=== PATIENT | male | born 1970 | race Caucasian/White ===

== ENCOUNTER 2016-11-08 16:48 | Emergency (ER) | payer OTHER ==
[~2016-11-08] VITALS: Ht 177.8 cm; Wt 135.7 kg
[~2016-11-08 16:48] MED LIST: POLYSOL3 OPB
[2016-11-08 16:52] VITALS: TEMP 36.4; Ht 177.8 cm; Wt 135.7 kg
[2016-11-08] MEDS ORDERED: DiphenhydrAMINE HCL 50 MG/ML VIAL IV STA (16:59)
[2016-11-08] MEDS ORDERED: SODIUM CHLORIDE 0.9% 1000ML 1,000 ML IV STA ×2 (16:59)
[2016-11-08] MEDS ORDERED: METOCLOPRAMIDE HCL INJ 5 MG/ML 2 ML VIAL IV STA (16:59)
--- NOTE | 2016-11-08 17:14 | DIAGNOSTIC IMAGING REPORT ---
CHEST ONE VIEW PORTABLE CLINICAL HISTORY: Chest pain, dizziness, nausea and vomiting. COMPARISON STUDY: Chest radiograph August 30, 2009. FINDINGS: Lung volumes are normal. No pneumothorax or pleural effusion is present. Cardiomediastinal silhouette is stable. There is no evidence of pulmonary edema. There is no consolidation. IMPRESSION: No acute cardiopulmonary findings. Electronically signed by: Howie Ashton M.D. 11/08/2016 5:11 PM Dictated Date/Time: 11/08/2016 5:11 PM
[2016-11-08] MEDS ORDERED: GLC/500 PO (17:25)
[2016-11-08 18:17] LABS: BASO % 0.2 %; BASO ABS # 0.02 K/uL (0-0.2); COMPLETE YES; EOS % 0.3 %; HEMATOCRIT 42.2 % (42-52); IG% 0.3 %; LYMPH % 12.1 %; MEAN CELL VOLUME 82.6 fL (80-100); MEAN CORPUSCULAR HEMOGLOBIN 30.5 pg (25-34); MEAN PLATELET VOLUME 10.8 fL (7.4-10.4); MONO % 3.8 %; NEUT % 83.3 %; PLATELET COUNT 198 K/uL (130-400); RED BLOOD COUNT 5.11 M/uL (4.7-6.1)
--- NOTE | 2016-11-08 18:29 | DIAGNOSTIC IMAGING REPORT ---
CT OF THE HEAD WITHOUT CONTRAST CLINICAL HISTORY: Dizzy. COMPARISON STUDY: No previous studies for comparison. CT DOSE: 884.08 mGy.cm TECHNIQUE: Helical axial images of the head were obtained without IV contrast. Automated exposure control was utilized for the study. FINDINGS: No acute intracranial hemorrhage is present. Ventricular system is normal. Note is made of a CSF attenuation 2.1 x 1.6 cm extra-axial lesion overlying the medial anterior left frontal lobe suggestive of an arachnoid cyst. Basilar cisterns are patent. There are no findings to suggest acute dural sinus thrombosis or acute territorial infarct. There are no significant calvarial abnormalities. Mastoid air cells are clear. The left sphenoid sinus is largely opacified. IMPRESSION: 1. No acute intracranial findings. 2. 2.1 x 1.6 cm CSF attenuation abnormality overlying the anterior left frontal lobe suggestive of a small arachnoid cyst. 3. Largely opacified left sphenoid sinus. Electronically signed by: Howie Ashton M.D. 11/08/2016 6:27 PM Dictated Date/Time: 11/08/2016 6:23 PM
[2016-11-08 18:41] LABS: ALT/SGPT 39 U/L (12-78); AST/SGOT 17 U/L (15-37); BLOOD UREA NITROGEN 14 mg/dl (7-18); BUN/CREATININE RATIO 13.5 (10-20); CALCIUM 8.7 mg/dl (8.5-10.1); CARBON DIOXIDE 27 mmol/L (21-32); CHLORIDE 102 mmol/L (98-107); GLUCOSE 307 mg/dl (70-99); MAGNESIUM 2.1 mg/dl (1.8-2.4); SODIUM 137 mmol/L (136-145)
[2016-11-08 18:50] LABS: ALKALINE PHOSPHATASE 83 U/L (45-117)
[2016-11-08 18:57] VITALS: O2SAT 97
[2016-11-08 18:58] LABS: BETA-HYDROXYBUTYRATE 11.39 mg/dL (0.2-2.81)
--- NOTE | 2016-11-08 19:18 | EMERGENCY ROOM VISIT NOTE ---
History First contact with patient: 16:55 Chief Complaint: HYPERGLYCEMIA Stated Complaint: DIZZY, NAUSEA, VOMITING, BLOOD SUGAR UP Nursing Triage Summary: Triage ntoe; pt ambulatory to triage with unsteady gait. pt reports he has been dizzy for the past several days and started to have nausea and vomitting today. pt reports his bsg at 1600 was 248. History of Present Illness The patient is a 45 year old male who presents to the Emergency Room with complaints of nausea, vomiting, lightheadedness, dizziness and elevated blood sugars for the past 2 days. Patient states he feels as if he is lightheaded and the room is spinning. Patient denies chest pain, dyspnea, localized weakness, numbness, tingling, chest pain, dyspnea, abdominal pain, diarrhea, fever, chills, cough, congestion, cold symptoms. Review of Systems See HPI for pertinent positives & negatives. A total of 10 systems reviewed and were otherwise negative. Past Medical/Surgical History Diabetes type 2 Social History Smoking Status: Never Smoker Smokeless Tobacco Use: No Drug Use: none Current/Historical Medications Scheduled Metformin Hcl (Glucophage), 500 MG PO QPM Allergies Coded Allergies: No Known Allergies (Unverified , 11/08/16) Physical Exam Vital Signs Date Time Temp Pulse Resp B/P Pulse Ox O2 Delivery O2 Flow Rate FiO2 11/08/16 18:57 97 11/08/16 18:57 97 11/08/16 18:49 63 16 111/55 96 Room Air 11/08/16 16:52 36.4 58 18 181/127 98 Room Air Physical Exam VITALS: Vitals are noted on the nurse's note and reviewed by myself. Vital signs stable. GENERAL: Pleasant male, in no acute distress, nondiaphoretic, well-developed well-nourished. SKIN: The skin was without rashes, erythema, edema, or bruising. There is no tenting of the skin. Capillary reflex less than 2 seconds. HEAD: Normocephalic atraumatic. EARS: External auditory canals clear, tympanic membranes pearly miller without erythema or effusion bilaterally. EYES: Pupils equal round and reactive to light and accommodation. Conjunctivae without injection, sclerae without icterus. Extraocular movements intact. NOSE: Patent, turbinates without inflammation or discharge. No sinus tenderness. MOUTH: Mucous membranes mildly dry. Pharynx without erythema or exudate. Uvula midline. Airway patent. Tongue does not deviate. NECK: Supple without nuchal rigidity. No lymphadenopathy. No thyromegaly. Cervical spine is nontender. No JVD. HEART: Regular rate and rhythm without murmurs gallops or rubs. LUNGS: Clear to auscultation bilaterally without wheezes, rales or rhonchi. No dullness to percussion. No retractions or accessory muscle use. ABDOMEN: Positive bowel sounds x 4. Normal tympanic percussion. Soft, nontender, without masses or organomegaly. Braxton sign negative. No guarding or rebound tenderness. MUSCULOSKELETAL: No muscle atrophy, erythema, or edema noted. NEURO: Patient was alert and oriented to person place and time. Normal sensation to light and sharp touch. No focal neurological deficits. Medical Decision & Procedures Laboratory Results 11/08/16 17:58 Red Blood Count 5.11, Mean Corpuscular Volume 82.6, Mean Corpuscular Hemoglobin 30.5, Mean Corpuscular Hemoglobin Concent 37.0, Mean Platelet Volume 10.8, Neutrophils (%) (Auto) 83.3, Lymphocytes (%) (Auto) 12.1, Monocytes (%) (Auto) 3.8, Eosinophils (%) (Auto) 0.3, Basophils (%) (Auto) 0.2, Neutrophils # (Auto) 8.24, Lymphocytes # (Auto) 1.20, Monocytes # (Auto) 0.38, Eosinophils # (Auto) 0.03, Basophils # (Auto) 0.02 11/08/16 17:58 Test 11/08/16 17:58 White Blood Count 9.90 K/uL (4.8-10.8) Red Blood Count 5.11 M/uL (4.7-6.1) Hemoglobin 15.6 g/dL (14.0-18.0) Hematocrit 42.2 % (42-52) Mean Corpuscular Volume 82.6 fL (80-100) Mean Corpuscular Hemoglobin 30.5 pg (25-34) Mean Corpuscular Hemoglobin Concent 37.0 g/dl (32-36) Platelet Count 198 K/uL (130-400) Mean Platelet Volume 10.8 fL (7.4-10.4) Neutrophils (%) (Auto) 83.3 % Lymphocytes (%) (Auto) 12.1 % Monocytes (%) (Auto) 3.8 % Eosinophils (%) (Auto) 0.3 % Basophils (%) (Auto) 0.2 % Neutrophils # (Auto) 8.24 K/uL (1.4-6.5) Lymphocytes # (Auto) 1.20 K/uL (1.2-3.4) Monocytes # (Auto) 0.38 K/uL (0.11-0.59) Eosinophils # (Auto) 0.03 K/uL (0-0.5) Basophils # (Auto) 0.02 K/uL (0-0.2) RDW Standard Deviation 36.6 fL (36.4-46.3) RDW Coefficient of Variation 12.1 % (11.5-14.5) Immature Granulocyte % (Auto) 0.3 % Immature Granulocyte # (Auto) 0.03 K/uL (0.00-0.02) Anion Gap 8.0 mmol/L (3-11) Est Creatinine Clear Calc Drug Dose 130.8 ml/min Estimated GFR () 105.6 Estimated GFR (Non- 91.1 BUN/Creatinine Ratio 13.5 (10-20) Calcium Level 8.7 mg/dl (8.5-10.1) Magnesium Level 2.1 mg/dl (1.8-2.4) Total Bilirubin 0.9 mg/dl (0.2-1) Direct Bilirubin 0.2 mg/dl (0-0.2) Aspartate Amino Transf (AST/SGOT) 17 U/L (15-37) Alanine Aminotransferase (ALT/SGPT) 39 U/L (12-78) Alkaline Phosphatase 83 U/L (45-117) Troponin I < 0.015 ng/ml (0-0.045) Total Protein 7.4 gm/dl (6.4-8.2) Albumin 3.6 gm/dl (3.4-5.0) Beta-Hydroxybutyric Acid 11.39 mg/dL (0.2-2.81) Thyroid Stimulating Hormone (TSH) 1.160 uIu/ml (0.300-4.500) Medications Administered Medications (Trade) Dose Ordered Sig/Ena Route Start Time Stop Time Status Last Admin Dose Admin Metoclopramide HCl (Reglan Inj) 10 mg NOW STAT IV 11/08/16 16:59 11/08/16 17:02 DC 11/08/16 17:42 10 MG Diphenhydramine HCl 25 mg 25 mg NOW STAT IV 11/08/16 16:59 11/08/16 17:02 DC 11/08/16 17:43 25 MG Sodium Chloride 1,000 ml @ 999 mls/hr Q1H1M STAT IV 11/08/16 16:59 11/08/16 17:59 DC 11/08/16 16:59 999 MLS/HR Sodium Chloride (Nss 1000ml) 1,000 ml @ 125 mls/hr Q8H STAT IV 11/08/16 16:59 11/09/16 00:58 11/08/16 16:59 125 MLS/HR ED Course Prior records/ancillary studies reviewed. Triage Nursing notes reviewed. The patient's history was concerning for dizziness and vertigo. Differential diagnosis: Etiologies such as benign positional vertigo, dehydration, hypovolemia, anemia, tumor, infection, hypoglycemia, electrolyte abnormalities, cardiac sources, intracerebral event, toxicologic, neurologic, as well as others were entertained. Physical examination: As above. No pathologic nystagmus. ER treatment provided: IV hydration with normal saline, 1000 ml. Reglan, Benadryl On reassessment the patient felt well. Diagnostics interpretation by me: ECG: Normal sinus rhythm without ischemic change or evidence of dysrhythmia. Normal sinus, normal intervals, no acute ST-T wave changes. Impression normal sinus rhythm interpreted by myself The labs revealed a normal CBC and chemistry panel. Hyperglycemia without DKA CT OF THE HEAD WITHOUT CONTRAST CLINICAL HISTORY: Dizzy. COMPARISON STUDY: No previous studies for comparison. CT DOSE: 884.08 mGy.cm TECHNIQUE: Helical axial images of the head were obtained without IV contrast. Automated exposure control was utilized for the study. FINDINGS: No acute intracranial hemorrhage is present. Ventricular system is normal. Note is made of a CSF attenuation 2.1 x 1.6 cm extra-axial lesion overlying the medial anterior left frontal lobe suggestive of an arachnoid cyst. Basilar cisterns are patent. There are no findings to suggest acute dural sinus thrombosis or acute territorial infarct. There are no significant calvarial abnormalities. Mastoid air cells are clear. The left sphenoid sinus is largely opacified. IMPRESSION: 1. No acute intracranial findings. 2. 2.1 x 1.6 cm CSF attenuation abnormality overlying the anterior left frontal lobe suggestive of a small arachnoid cyst. 3. Largely opacified left sphenoid sinus. Electronically signed by: Howie Ashton M.D. It appears the patient had an episode of vertigo. Patient did have hyperglycemia without DKA. He felt much better to being medicated as above. He is able tolerate by mouth fluids and ambulate without difficulties. He was advised to monitor his blood sugars, rest, stay well-hydrated and follow-up family care in a few days or here in the ER sooner for chest pain, difficulty breathing, numbness, tingling, worsening signs or symptoms or as needed. Patient was neurovascularly and neurologically intact. By the evaluation outlined above emergent etiologies such as infection, hypoglycemia, electrolyte abnormalities, cardiac sources, intracerebral event, toxicologic, neurologic,as well as others were deemed relatively unlikely. The pt informed about the findings as listed above. All questions were answered and pleased with the treatment. Return instructions were outlined and the patient was discharged in stable condition. Outpatient prescription management: Zofran Referral: The patient was referred back to their primary care physician for follow-up in 2 to 3 days for a recheck of the current condition. Case reviewed with my attending Medical Decision As above Impression Primary Impression: Vertigo Additional Impressions: Hyperglycemia due to type 2 diabetes mellitus Vomiting Departure Information Dispostion Home / Self-Care Condition GOOD Referrals German Nayak M.D. (MEDICAL) (PCP) Patient Instructions My [facility] Additional Instructions DO NOT drive, drink alcohol, operate machinery, or perform dangerous activities today. You were given medications in the ER that can affect your ability to safely function or operate a vehicle. Monitor your blood sugars. They were high today. Zofran(odansetron) tablets 4mg: Take one and allow it to dissolve in your mouth every four to six hours as needed for nausea or vomiting. Ibuprofen(Motrin, Advil) may be used for fever or pain. Use 600mg every six hours as needed. Take with food. Avoid using more than 2400mg in a 24 hour period. Do not use 2400mg per day for more than three consecutive days without physician direction. Prolonged inappropriate use can lead to stomach upset or ulcers. (AND/OR) Acetaminophen(Tylenol) may be used for fever or pain. Use 1000mg every six hours as needed. Avoid using more than 3000mg in a 24 hour period. Rest and drink plenty of fluids as tolerated. Slow sips of water or sports drinks are recommended instead of large amounts all at once. Continue current medications. Once your stomach is settled start with a clear liquid diet (jello, soup broth, etc.) and then advance as tolerated. You should avoid full, heavy meals for about 24 hrs from the time your symptoms resolved. Return to the ER for persistent vomiting, fevers, abdominal pain, chest pains, difficulty breathing, black or bloody stools, worsening of your condition, or as needed. Follow up with your primary physician in 2-3 days for a recheck of your current condition. Problem Qualifiers
[2016-11-08] MEDS ORDERED: ONDANSETRON HOME PACK 4MG OD TAB PO ONE (19:30)
[2016-11-08 19:41] VITALS: BP 157/94; PULSE 62; O2SAT 97
[2017-06-14] MEDS ORDERED: METFTAB PO (16:03)
[2017-06-14] MEDS ORDERED: LINE1TAB2 PO (16:03)
[2017-06-14] MEDS ORDERED: INSDGIPEN SC (16:03)
[2017-06-14] MEDS ORDERED: INSU32MI13 SQ (16:03)
[2017-06-14] MEDS ORDERED: ULT50X PO (16:03)
[2017-06-14] MEDS ORDERED: NVLGIPEN SQ (20:48)
[2017-07-01] MEDS ORDERED: LEVO1TAB34 PO (13:13)
== END 2016-11-08 19:42 | disposition home or self-care (01) ==
LOC: C.EDB 16:49
DX: R42 Dizziness and giddiness (principal); E11.65 Type 2 diabetes mellitus with hyperglycemia; R11.10 Vomiting, unspecified; Z79.4 Long term (current) use of insulin

== ENCOUNTER 2017-06-04 16:11 | Inpatient (IN) | payer OTHER ==
[~2017-06-04] VITALS: Ht 177.8 cm; Wt 137.5 kg
[~2017-06-04 16:11] MED LIST changes: +GLC/500 PO; -POLYSOL3 OPB
[2017-06-04] MEDS ORDERED: PIPERACILLIN/TAZOBACTAM 4.5 GM/100ML D5W IV STA (17:18)
[2017-06-04] MEDS ORDERED: DAPTOMYCIN IV STA (17:18)
[2017-06-04] MEDS ORDERED: SODIUM CHLORIDE 0.9% IV STA (17:18)
[2017-06-04] MEDS ORDERED: DAPTOMYCIN IV SCH (17:18)
[2017-06-04] MEDS ORDERED: HYDROmorphone INJ 1 MG/ML SYR IV STA (17:27)
[2017-06-04] MEDS ORDERED: ONDANSETRON INJ 2 MG/ML 2 ML VIAL IV STA (17:27)
[2017-06-04] MEDS ORDERED: OPTIRAY 320 IV PRN (17:30)
[2017-06-04 18:06] LABS: ISTAT CREATININE 0.9 mg/dl (0.6-1.3); ISTAT HEMOGLOBIN 14.3 g/dl (14.0-18.0); ISTAT IONIZED CALCIUM 1.12 mmol/l (1.12-1.32)
[2017-06-04 18:39] LABS: ALKALINE PHOSPHATASE 93 U/L (45-117); ALT/SGPT 22 U/L (12-78); AST/SGOT 12 U/L (15-37); BLOOD UREA NITROGEN 14 mg/dl (7-18); BUN/CREATININE RATIO 12.7 (10-20); CALCIUM 9.4 mg/dl (8.5-10.1); CARBON DIOXIDE 26 mmol/L (21-32); CHLORIDE 101 mmol/L (98-107); CREATININE 1.08 mg/dl (0.60-1.40); GLUCOSE 291 mg/dl (70-99); SODIUM 135 mmol/L (136-145)
[2017-06-04 18:50] LABS: URINE APPEARANCE CLEAR (CLEAR); URINE BILIRUBIN NEG (NEG); URINE COLOR YELLOW; URINE NITRITE NEG (NEG); URINE SPECIFIC GRAVITY > 1.045 (1.000-1.030); UROBILINOGEN NEG (NEG)
[2017-06-04 18:57] LABS: MANUAL MICROSCOPIC REQUIRED? NO; REVIEW REQ? NO
--- NOTE | 2017-06-04 18:59 | DIAGNOSTIC IMAGING REPORT ---
ABDOMEN AND PELVIS CT WITH IV CONTRAST CT DOSE: 2046.80 mGy.cm HISTORY: Scrotal swelling. Pt fourneiers gangrene TECHNIQUE: Multiaxial CT images of the abdomen and pelvis were performed following the use of intravenous contrast. A dose lowering technique was utilized adhering to the principles of ALARA. COMPARISON STUDY: None. FINDINGS: There is scrotal edema and subcutaneous fat stranding along the right side of the scrotum/medial inguinal region. No loculated fluid collections at this time to suggest an abscess. There is no soft tissue gas. Hepatic steatosis. The gallbladder, spleen, adrenal glands, pancreas, and kidneys are unremarkable. No retroperitoneal lymphadenopathy. No hydronephrosis. Normal bladder. No bowel wall thickening or obstruction. A few colonic diverticula. Normal appendix. IMPRESSION: There is scrotal edema and subcutaneous fat stranding along the right side of the scrotum/medial inguinal region. No loculated fluid collections at this time to suggest an abscess. There is no soft tissue gas. Therefore, this favors a cellulitis. However, a developing Irlanda's gangrene could also have a similar appearance given the location. Electronically signed by: Leandro Corona M.D. 06/04/2017 6:58 PM Dictated Date/Time: 06/04/2017 6:48 PM
[2017-06-04 19:04] LABS: BASO % 0.1 %; BASO ABS # 0.02 K/uL (0-0.2); COMPLETE YES; EOS % 0.3 %; IG% 0.2 %; LYMPH % 8.2 %; LYMPH ABS # 1.12 K/uL (1.2-3.4); MEAN CELL VOLUME 85.4 fL (80-100); MEAN CORPUSCULAR HGB CONC 36.3 g/dl (32-36); MEAN PLATELET VOLUME 11.8 fL (7.4-10.4); MONO % 8.7 %; NEUT % 82.5 %; PLATELET COUNT 237 K/uL (130-400); WHITE BLOOD COUNT 13.62 K/uL (4.8-10.8)
--- NOTE | 2017-06-04 19:11 | EMERGENCY ROOM VISIT NOTE ---
History Report prepared by Michelle: Hermila Berg Under the Supervision of: Dr. Fredi Sanders M.D. First contact with patient: 17:12 Chief Complaint: GROIN PAIN Stated Complaint: IRLANDA GANGRENE- [facility] REFERRED History of Present Illness The patient is a 46 year old male who presents to the Emergency Room with complaints of worsening groin pain starting last night. The patient states that 4 days ago he noticed a small red bump on the right side of his groin. He reports that he thought it was an ingrown hair and tried to pop it. He states that since then it has worsened. He reports that the swelling and redness has increased and started spreading. The patient currently rates his pain as an 8/ 10 in severity. He states that he has been taking Ibuprofen and Tylenol with the last being 2 hours ago. The patient notes that he came to the ED because [employer] sent him here. He denies his scrotum being tender and denies any drainage from the region. Source of History: patient Onset: last night Position: other (groin) Symptom Intensity: 8/10 Quality: other (swollen) Timing: worsening Modifying Factors (Relieving): tylenol, ibuprofen Note: The patient denies his scrotum being tender and any drainage from the region. Review of Systems See HPI for pertinent positives & negatives. A total of 10 systems reviewed and were otherwise negative. Past Medical & Surgical Medical Problems: (1) Diabetes Family History No pertinent family history Social History Smoking Status: Never Smoker Drug Use: none Marital Status: single Housing Status: lives alone Current/Historical Medications Scheduled Metformin Hcl (Glucophage), 1 TAB PO BID Sildenafil Citrate (Viagra), 100 MG PO UD Allergies Coded Allergies: No Known Allergies (Unverified , 06/04/17) Physical Exam Vital Signs Date Time Temp Pulse Resp B/P (MAP) Pulse Ox O2 Delivery O2 Flow Rate FiO2 06/04/17 19:19 80 06/04/17 18:08 88 18 153/90 97 Room Air 06/04/17 16:27 37.5 90 20 157/112 96 Room Air Physical Exam GENERAL: Patient is a healthy-appearing well-nourished HEAD: Normocephalic atraumatic EYES: Ocular movements intact pupils equal and react to light OROPHARYNX mucous membranes are moist no exudates present no erythema or edema present NECK: Supple no nuchal rigidity CHEST: Good equal expansion LUNGS: Clear and equal to auscultation CARDIAC: Normal S1 and S2 ABDOMEN: Soft nontender no guarding GROIN: Induration from the right inguinal region into the scrotum. The scrotum itself is red and inflamed. Open wound to the left inguinal region. BACK: No CVA tenderness EXTREMITIES: No pain upon palpation normal muscle strength in all groups no clubbing cyanosis or edema NEURO: Patient is following commands and answering questions appropriately. Alert and oriented x3 Cranial Nerves 2-12 grossly intact Medical Decision & Procedures ER Provider Diagnostic Interpretation: Radiology results as stated below per my review and radiologist interpretation: ABDOMEN AND PELVIS CT WITH IV CONTRAST CT DOSE: 2046.80 mGy.cm HISTORY: Scrotal swelling. Pt fourneiers gangrene TECHNIQUE: Multiaxial CT images of the abdomen and pelvis were performed following the use of intravenous contrast. A dose lowering technique was utilized adhering to the principles of ALARA. COMPARISON STUDY: None. FINDINGS: There is scrotal edema and subcutaneous fat stranding along the right side of the scrotum/medial inguinal region. No loculated fluid collections at this time to suggest an abscess. There is no soft tissue gas. Hepatic steatosis. The gallbladder, spleen, adrenal glands, pancreas, and kidneys are unremarkable. No retroperitoneal lymphadenopathy. No hydronephrosis. Normal bladder. No bowel wall thickening or obstruction. A few colonic diverticula. Normal appendix. IMPRESSION: There is scrotal edema and subcutaneous fat stranding along the right side of the scrotum/medial inguinal region. No loculated fluid collections at this time to suggest an abscess. There is no soft tissue gas. Therefore, this favors a cellulitis. However, a developing Irlanda's gangrene could also have a similar appearance given the location. Electronically signed by: Leandro Corona M.D. 06/04/2017 6:58 PM Dictated Date/Time: 06/04/2017 6:48 PM Laboratory Results 06/04/17 17:40 Red Blood Count 4.80, Mean Corpuscular Volume 85.4, Mean Corpuscular Hemoglobin 31.0, Mean Corpuscular Hemoglobin Concent 36.3, Mean Platelet Volume 11.8, Neutrophils (%) (Auto) 82.5, Lymphocytes (%) (Auto) 8.2, Monocytes (%) (Auto) 8.7, Eosinophils (%) (Auto) 0.3, Basophils (%) (Auto) 0.1, Neutrophils # (Auto) 11.22, Lymphocytes # (Auto) 1.12, Monocytes # (Auto) 1.19, Eosinophils # (Auto) 0.04, Basophils # (Auto) 0.02 06/04/17 17:40 Test 06/04/17 17:40 06/04/17 17:53 06/04/17 18:20 White Blood Count 13.62 K/uL (4.8-10.8) Red Blood Count 4.80 M/uL (4.7-6.1) Hemoglobin 14.9 g/dL (14.0-18.0) Hematocrit 41.0 % (42-52) Mean Corpuscular Volume 85.4 fL (80-100) Mean Corpuscular Hemoglobin 31.0 pg (25-34) Mean Corpuscular Hemoglobin Concent 36.3 g/dl (32-36) Platelet Count 237 K/uL (130-400) Mean Platelet Volume 11.8 fL (7.4-10.4) Neutrophils (%) (Auto) 82.5 % Lymphocytes (%) (Auto) 8.2 % Monocytes (%) (Auto) 8.7 % Eosinophils (%) (Auto) 0.3 % Basophils (%) (Auto) 0.1 % Neutrophils # (Auto) 11.22 K/uL (1.4-6.5) Lymphocytes # (Auto) 1.12 K/uL (1.2-3.4) Monocytes # (Auto) 1.19 K/uL (0.11-0.59) Eosinophils # (Auto) 0.04 K/uL (0-0.5) Basophils # (Auto) 0.02 K/uL (0-0.2) RDW Standard Deviation 38.2 fL (36.4-46.3) RDW Coefficient of Variation 12.2 % (11.5-14.5) Immature Granulocyte % (Auto) 0.2 % Immature Granulocyte # (Auto) 0.03 K/uL (0.00-0.02) Est Creatinine Clear Calc Drug Dose 120.7 ml/min Estimated GFR () 95.6 Estimated GFR (Non- 82.5 BUN/Creatinine Ratio 12.7 (10-20) Calcium Level 9.4 mg/dl (8.5-10.1) Total Bilirubin 0.8 mg/dl (0.2-1) Direct Bilirubin mg/dl (0-0.2) Aspartate Amino Transf (AST/SGOT) 12 U/L (15-37) Alanine Aminotransferase (ALT/SGPT) 22 U/L (12-78) Alkaline Phosphatase 93 U/L (45-117) Total Protein 7.7 gm/dl (6.4-8.2) Albumin 3.2 gm/dl (3.4-5.0) Lipase 115 U/L (73-393) Bedside Hemoglobin 14.3 g/dl (14.0-18.0) Bedside Hematocrit 42 % (42-52) Bedside Sodium 136 mEq/L (135-144) Bedside Potassium 4.2 mEq/L (3.3-5.0) Bedside Chloride 98 mEq/L (101-112) Bedside Total CO2 27 mEq/l (24-31) Anion Gap 16.0 mmol/L (16-25) Bedside Blood Urea Nitrogen 16 mg/dl (7-18) Bedside Creatinine 0.9 mg/dl (0.6-1.3) Bedside Glucose (other) 287 mg/dl (70-99) Bedside Ionized Calcium (Flaco) 1.12 mmol/l (1.12-1.32) Urine Color YELLOW Urine Appearance CLEAR (CLEAR) Urine pH 5.0 (4.5-7.5) Urine Specific [place] > 1.045 (1.000-1.030) Urine Protein 1+ (NEG) Urine Glucose (UA) 3+ (NEG) Urine Ketones 1+ (NEG) Urine Occult Blood NEG (NEG) Urine Nitrite NEG (NEG) Urine Bilirubin NEG (NEG) Urine Urobilinogen NEG (NEG) Urine Leukocyte Esterase NEG (NEG) Urine WBC (Auto) 1-5 /hpf (0-5) Urine RBC (Auto) 0-4 /hpf (0-4) Urine Hyaline Casts (Auto) 1-5 /lpf (0-5) Urine Epithelial Cells (Auto) 5-10 /lpf (0-5) Urine Bacteria (Auto) NEG (NEG) Labs reviewed by ED physician. Medications Administered Medications (Trade) Dose Ordered Sig/Ena Route Start Time Stop Time Status Last Admin Dose Admin Piperacillin Sod/ Tazobactam Sod (Zosyn Iv) 4.5 gm NOW STAT IV 06/04/17 17:18 06/04/17 17:21 DC 06/04/17 18:11 4.5 GM Hydromorphone HCl (Dilaudid Inj) 1 mg NOW STAT IV 06/04/17 17:27 06/04/17 17:28 DC 06/04/17 18:11 1 MG Ondansetron HCl (Zofran Inj) 4 mg NOW STAT IV 06/04/17 17:27 06/04/17 17:28 DC 06/04/17 18:11 4 MG Daptomycin 825 mg/ Syringe 16.5 ml @ 8.25 mls/ min 1718 IV 06/04/17 17:18 06/04/17 19:00 DC 06/04/17 18:25 8.25 MLS/MIN ED Course 171: Ordered Daptomycin 825 mg/ Syringe 16.5 ml @ 8.25 mls/min Protocol IV, Zosyn Iv 4.5 gm IV. 1721: Past medical records reviewed. The patient was evaluated in room C4. A complete history and physical examination was performed. 1726: Ordered Zofran Inj 4 mg IV, Dilaudid Inj 1 mg IV. 1919: I discussed the patient's case with Dr. Hernandez, he has agreed to evaluate the patient for further management and care. Medical Decision Etiologies such as cellulitis, abscess, MRSA infection, DVT, necrotizing fasciitis, dermatitis, drug eruption, as well as others were entertained. This is a 46-year-old male who presents emergency department complaining of redness to his groin area that started after he popped a blister. A wound culture was obtained and the patient was started on Zosyn as well as daptomycin. Due to the patient's status is a diabetic he was sent for a CAT scan of the abdomen and pelvis. This did not show any evidence of 14 years gangrene however the patient does have cellulitis. He was pancultured. I did discuss the case with the hospitalist service who agreed to admit the patient. Patient family were in agreement with the treatment plan. Medication Reconcilliation Current Medication List: was personally reviewed by me Blood Pressure Screening Patient's blood pressure: Elevated blood pressure Will be further monitored by hospitalist. Consults Time Called: 1904 Consulting Physician: Dr. Hernandez Returned Call: 1919 I discussed the patient's case with Dr. Hernandez, he has agreed to evaluate the patient for further management and care. Impression Primary Impression: Cellulitis Scribe Attestation The scribe's documentation has been prepared under my direction and personally reviewed by me in its entirety. I confirm that the note above accurately reflects all work, treatment, procedures, and medical decision making performed by me. Departure Information Dispostion Being Evaluated By Hospitalist Referrals German Nayak M.D. (MEDICAL) (PCP) Patient Instructions My [facility] Problem Qualifiers Primary Impression: Cellulitis Site of cellulitis: other site Qualified Codes: L03.818 - Cellulitis of other sites
[2017-06-04] MEDS ORDERED: GLUCOSE 40% GEL 15 GM TUBE PO PRN (20:00)
[2017-06-04] MEDS ORDERED: MoRPHine SULFATE 2 MG/ML CARP IV PRN (20:00)
[2017-06-04] MEDS ORDERED: DEXTROSE 50% 50 ML SYR IV PRN (20:00)
[2017-06-04] MEDS ORDERED: GLUCOSE 10 TABS/TUBE PO PRN (20:00)
[2017-06-04] MEDS ORDERED: GLUCAGON FOR INJ 1 MG VIAL SQ PRN (20:00)
[2017-06-04] MEDS ORDERED: SILD100T PO (20:08)
[2017-06-04] MEDS ORDERED: METF500T PO (20:09)
[2017-06-04 21:00] VITALS: BP 139/81; PULSE 82; TEMP 37.2; O2SAT 97; BMI 43.5
--- NOTE | 2017-06-04 21:20 | History and Physical ---
History & Physical Date & Time of Service: Jun 04, 2017 at 20:18 Chief Complaint: Irlanda Gangrene- [facility] Referred Primary Care Physician: German Nayak M.D. (MEDICAL) History of Present Illness Source: patient, spouse, clinic records, hospital records 46 yo with PMH of DM Type 2, obesity was sent from [facility] for cellulitis in the scrotum presents to the Emergency Room with complaints of worsening right groin/ scrotum pain starting last night. Pt said that it started as a small red lump in his right inguinal area. He said that he tried to pop it because he thought he was an ingrown hair. He said 24 hrs later, he said that things got worst. He said that the area was tender, erythematous and swelling, then spreading in the scrotum area. He said that the pain in the right inguinal area is about 7/10. He said that his scrotum area is mildly tender associated with redness. He said that he developed a fever and chills. He said that he had been taking ibuprofen and Tylenol with no relief. He said that he noticed his urine has an odor. Denies any discharge, urinary retention or bladder loss, no nausea, diarrhea. Pt is DM and his last hba1c was 11.5 on . He said that he has not been taking his metformin in the past few months due to GI side effect (diarrhea). Past Medical/Surgical History DM Type 2 OBESITY Tourette syndrome Erectile Dysfunction OCD Family History No pertinent family history Social History Smoking Status: Never Smoker Drug Use: none Marital Status: single Multi-Drug Resistant Organisms History of MDRO: No Allergies Coded Allergies: No Known Allergies (Unverified , 06/04/17) Home Medications Scheduled Metformin Hcl (Glucophage), 1 TAB PO BID Sildenafil Citrate (Viagra), 100 MG PO UD Review of Systems Constitutional: + fever, + chills, + sweats Eyes: No worsening of vision, No discharge ENT: No nasal symptoms, No sore throat Respiratory: No sputum, No wheezing, No shortness of breath, No dyspnea on exertion Cardiovascular: No chest pain, No claudication Abdomen: No pain, No nausea, No vomiting Musculoskeletal: No swelling, No calf pain Genitourinary - Male: + problem reported (erythema and tenderness in the scrotal area), No hematuria, No dysuria, No urinary retention, No penile discharge Neurologic: No memory loss, No weakness Psychiatric: No substance abuse Endocrine: No excessive thirst, No excessive urination Hematologic / Lymphatic: No clotting problems Integumentary: No rash, No itch Physical Exam Vital Signs Date Time Temp Pulse Resp B/P (MAP) Pulse Ox O2 Delivery O2 Flow Rate FiO2 06/04/17 19:19 80 06/04/17 18:08 88 18 153/90 97 Room Air 06/04/17 16:27 37.5 90 20 157/112 96 Room Air General Appearance: WD/WN, no apparent distress Head: normocephalic, atraumatic Eyes: PERRL, EOMI, sclerae normal ENT: hearing grossly normal Neck: no adenopathy, no JVD, trachea midline Respiratory/Chest: lungs clear, normal breath sounds, no respiratory distress, no accessory muscle use Cardiovascular: no edema, no JVD, no murmur Abdomen/GI: normal bowel sounds, non tender Genitourinary - Male: no urethral discharge, + pertinent finding (scrotum erythema, swelling with right side tenderness, right scrotal area induration, Open lesion to the left side of the scrotal area, no drainage) Back: no CVA tenderness Extremities/Musculoskelatal: no calf tenderness, no pedal edema Neurologic/Psych: no motor/sensory deficits, alert, oriented x 3 Skin: warm/dry, no rash Diagnostics Laboratory Results Results Past 24 Hours Test 06/04/17 17:40 06/04/17 17:53 06/04/17 18:20 Range/Units White Blood Count 13.62 4.8-10.8 K/uL Red Blood Count 4.80 4.7-6.1 M/uL Hemoglobin 14.9 14.0-18.0 g/dL Hematocrit 41.0 42-52 % Mean Corpuscular Volume 85.4 80-100 fL Mean Corpuscular Hemoglobin 31.0 25-34 pg Mean Corpuscular Hemoglobin Concent 36.3 32-36 g/dl Platelet Count 237 130-400 K/uL Mean Platelet Volume 11.8 7.4-10.4 fL Neutrophils (%) (Auto) 82.5 % Lymphocytes (%) (Auto) 8.2 % Monocytes (%) (Auto) 8.7 % Eosinophils (%) (Auto) 0.3 % Basophils (%) (Auto) 0.1 % Neutrophils # (Auto) 11.22 1.4-6.5 K/uL Lymphocytes # (Auto) 1.12 1.2-3.4 K/uL Monocytes # (Auto) 1.19 0.11-0.59 K/uL Eosinophils # (Auto) 0.04 0-0.5 K/uL Basophils # (Auto) 0.02 0-0.2 K/uL RDW Standard Deviation 38.2 36.4-46.3 fL RDW Coefficient of Variation 12.2 11.5-14.5 % Immature Granulocyte % (Auto) 0.2 % Immature Granulocyte # (Auto) 0.03 0.00-0.02 K/uL Sodium Level 135 136-145 mmol/L Potassium Level 4.0 3.5-5.1 mmol/L Chloride Level 101 98-107 mmol/L Carbon Dioxide Level 26 21-32 mmol/L Anion Gap 8.0 16.0 16-25 mmol/L Blood Urea Nitrogen 14 7-18 mg/dl Creatinine 1.08 0.60-1.40 mg/dl Est Creatinine Clear Calc Drug Dose 120.7 ml/min Estimated GFR () 95.6 Estimated GFR (Non- 82.5 BUN/Creatinine Ratio 12.7 10-20 Random Glucose 291 70-99 mg/dl Calcium Level 9.4 8.5-10.1 mg/dl Total Bilirubin 0.8 0.2-1 mg/dl Direct Bilirubin 0-0.2 mg/dl Aspartate Amino Transf (AST/SGOT) 12 15-37 U/L Alanine Aminotransferase (ALT/SGPT) 22 12-78 U/L Alkaline Phosphatase 93 45-117 U/L Total Protein 7.7 6.4-8.2 gm/dl Albumin 3.2 3.4-5.0 gm/dl Lipase 115 73-393 U/L Bedside Hemoglobin 14.3 14.0-18.0 g/dl Bedside Hematocrit 42 42-52 % Bedside Sodium 136 135-144 mEq/L Bedside Potassium 4.2 3.3-5.0 mEq/L Bedside Chloride 98 101-112 mEq/L Bedside Total CO2 27 24-31 mEq/l Bedside Blood Urea Nitrogen 16 7-18 mg/dl Bedside Creatinine 0.9 0.6-1.3 mg/dl Bedside Glucose (other) 287 70-99 mg/dl Bedside Ionized Calcium (Flaco) 1.12 1.12-1.32 mmol/l Urine Color YELLOW Urine Appearance CLEAR CLEAR Urine pH 5.0 4.5-7.5 Urine Specific [place] > 1.045 1.000-1.030 Urine Protein 1+ NEG Urine Glucose (UA) 3+ NEG Urine Ketones 1+ NEG Urine Occult Blood NEG NEG Urine Nitrite NEG NEG Urine Bilirubin NEG NEG Urine Urobilinogen NEG NEG Urine Leukocyte Esterase NEG NEG Urine WBC (Auto) 1-5 0-5 /hpf Urine RBC (Auto) 0-4 0-4 /hpf Urine Hyaline Casts (Auto) 1-5 0-5 /lpf Urine Epithelial Cells (Auto) 5-10 0-5 /lpf Urine Bacteria (Auto) NEG NEG Microbiology Results 06/04/17 Blood Culture, Received Pending 06/04/17 Blood Culture, Received Pending 06/04/17 Gram Stain - Final, Resulted 06/04/17 Wound Culture, Resulted Pending Diagnostic Radiology ABDOMEN AND PELVIS CT WITH IV CONTRAST CT DOSE: 2046.80 mGy.cm HISTORY: Scrotal swelling. Pt fourneiers gangrene TECHNIQUE: Multiaxial CT images of the abdomen and pelvis were performed following the use of intravenous contrast. A dose lowering technique was utilized adhering to the principles of ALARA. COMPARISON STUDY: None. FINDINGS: There is scrotal edema and subcutaneous fat stranding along the right side of the scrotum/medial inguinal region. No loculated fluid collections at this time to suggest an abscess. There is no soft tissue gas. Hepatic steatosis. The gallbladder, spleen, adrenal glands, pancreas, and kidneys are unremarkable. No retroperitoneal lymphadenopathy. No hydronephrosis. Normal bladder. No bowel wall thickening or obstruction. A few colonic diverticula. Normal appendix. IMPRESSION: There is scrotal edema and subcutaneous fat stranding along the right side of the scrotum/medial inguinal region. No loculated fluid collections at this time to suggest an abscess. There is no soft tissue gas. Therefore, this favors a cellulitis. However, a developing Irlanda's gangrene could also have a similar appearance given the location. Electronically signed by: Leandro Corona M.D. 06/04/2017 6:58 PM Dictated Date/Time: 06/04/2017 6:48 PM Impression Assessment and Plan Cellulitis of the Scrotum Present with right inguinal/scrotum tenderness/swelling and erythema associated with fever and chills. CT abd/ pelvis showed scrotal edema and subcutaneous fat stranding along the right side of the scrotum/medial inguinal region. Elevated WBC Received IV Zosyn and dapto Blood cx and wound cx collected in the ER Will start on IV Vanco and Zosyn for now Monitor CBC and follow up cx DM type 2 Non compliant BS usually runs in the 300 Last hba1c found from the clinic record was 11.5 on 05/12 Has not been taking his metformin for the past few months due to diarrhea will check HBA1c Started on insulin coverage with NovoLog Discuss with pt that he might be a candidate for insulin if his hba1c is too high Will consult diabetes education Discussed with pt about diabetes complications such as LE amputation, neuropathy , blindness, ESRD, TN and Monitor BS PHAN On CPAP Obesity Counseling about diet and exercise DVT px on Lovenox subQ CODE STATUS FULL CODE Level of Care Med/Surg Resuscitation Status FULL RESUSCITATION VTE Prophylaxis VTE Risk Assessment Done? Y/N: Yes Risk Level: Low Given or contraindicated: Enoxaparin (Lovenox)SQ
[2017-06-04] MEDS ORDERED: PIPERACILL/TAZOBAC CONSULT ACTIVE PRN (21:30)
[2017-06-04] MEDS ORDERED: VANCOMYCIN CONSULT ACTIVE PRN (21:30)
[2017-06-04] MEDS: INSULIN ASPART 100 UNITS/ML 3 ML PEN SC SCH (22:31)
[2017-06-04] MEDS ORDERED: INFLUENZA ADMINISTRATION CHARGE ONE (23:30)
[2017-06-04] MEDS ORDERED: INFLUENZA VIRUS QUAD VACCINE 0.5 ML SYR IM. ONE (23:30)
[2017-06-04 23:35] VITALS: BP 144/73; PULSE 86; TEMP 38; O2SAT 95
[2017-06-04] MEDS: PIPERACILL/TAZOBAC IV 4.5 GM in DEXTROSE 5% 100ML 100 ML IV SCH (23:51)
[2017-06-04] MEDS: ACETAMINOPHEN 325 MG TAB PO PRN (23:52)
[2017-06-05] MEDS: KETOROLAC TROMETHAMINE 30 MG/ML VIAL IV PRN ×4 (03:36→22:03)
[2017-06-05 06:09] LABS: HEMATOCRIT 37.2 % (42-52); MEAN CELL VOLUME 86.1 fL (80-100); MEAN CORPUSCULAR HEMOGLOBIN 30.6 pg (25-34); MEAN CORPUSCULAR HGB CONC 35.5 g/dl (32-36); MEAN PLATELET VOLUME 10.2 fL (7.4-10.4); PLATELET COUNT 203 K/uL (130-400); RED BLOOD COUNT 4.32 M/uL (4.7-6.1); WHITE BLOOD COUNT 12.38 K/uL (4.8-10.8)
[2017-06-05 06:29] LABS: PARTIAL THROMBOPLASTIN RATIO 1.2; PROTHROMBIN TIME (PATIENT) 10.5 SECONDS (9.0-12.0)
[2017-06-05 06:38] LABS: BUN/CREATININE RATIO 14.1 (10-20); CALCIUM 8.6 mg/dl (8.5-10.1); CREATININE 0.97 mg/dl (0.60-1.40); POTASSIUM 3.6 mmol/L (3.5-5.1)
[2017-06-05 07:21] LABS: ESTIMATED AVERAGE GLUCOSE 298 mg/dl; HA1C FLAG Normal (Normal)
[2017-06-05 07:37] VITALS: BP 116/68; PULSE 76; TEMP 37.1; O2SAT 98
[2017-06-05] MEDS: PIPERACILL/TAZOBAC IV 4.5 GM in DEXTROSE 5% 100ML 100 ML IV SCH ×3 (08:10→23:32)
[2017-06-05] MEDS: INSULIN ASPART 100 UNITS/ML 3 ML PEN SC SCH ×4 (09:22→21:55)
[2017-06-05] MEDS: ENOXAPARIN 40 MG/0.4 ML SYR SQ SCH (09:23)
[2017-06-05] MEDS ORDERED: PHARMACY GLYCEMIC MGMT CONSULT PRN (09:48)
[2017-06-05] MEDS ORDERED: INSULIN GLARGINE SOLOSTAR 100 UNITS/ML 3 ML PEN SC ONE ×2 (10:00→21:00)
[2017-06-05 10:57] VITALS: TEMP 37.4
[2017-06-05 11:27] VITALS: TEMP 37.3
[2017-06-05] MEDS ORDERED: VANCOMYCIN INJ 2,750 MG in SODIUM CHLORIDE 0.9% 500ML 500 ML IV ONE (12:00)
[2017-06-05 12:37] VITALS: BMI 43.5
--- NOTE | 2017-06-05 13:49 | Pharmacy Progress Note ---
Glycemic Control Intl Consult Date of Service Jun 05, 2017. Scope Glycemic Pharmacist consulted by Dr Ordoñez on 06/05/17 for glycemic control and to write orders per [facility] inpatient glycemic control protocol Objective Weight (Kilograms): 137.500 Accuchecks BSG (last 24hrs): Test 06/04/17 17:40 06/04/17 21:06 06/05/17 05:49 06/05/17 12:16 Random Glucose 291 mg/dl (70-99) 248 mg/dl (70-99) Bedside Glucose 284 mg/dl (70-99) 304 mg/dl (70-99) Laboratory Data (last 24hrs) Test 06/04/17 17:40 06/04/17 17:53 06/05/17 05:49 Anion Gap 8.0 mmol/L 16.0 mmol/L 8.0 mmol/L BUN/Creatinine Ratio 12.7 14.1 Blood Urea Nitrogen 14 mg/dl 14 mg/dl Creatinine 1.08 mg/dl 0.97 mg/dl Potassium Level 4.0 mmol/L 3.6 mmol/L Sodium Level 135 mmol/L 135 mmol/L White Blood Count 13.62 K/uL 12.38 K/uL Red Blood Count 4.80 M/uL Hemoglobin 14.9 g/dL Hematocrit 41.0 % Mean Corpuscular Volume 85.4 fL Mean Corpuscular Hemoglobin 31.0 pg Mean Corpuscular Hemoglobin Concent 36.3 g/dl Platelet Count 237 K/uL Mean Platelet Volume 11.8 fL Neutrophils (%) (Auto) 82.5 % Lymphocytes (%) (Auto) 8.2 % Monocytes (%) (Auto) 8.7 % Eosinophils (%) (Auto) 0.3 % Basophils (%) (Auto) 0.1 % Neutrophils # (Auto) 11.22 K/uL Lymphocytes # (Auto) 1.12 K/uL Monocytes # (Auto) 1.19 K/uL Eosinophils # (Auto) 0.04 K/uL Basophils # (Auto) 0.02 K/uL Hemoglobin A1c 12.0 % HbA1c Test 06/05/17 05:49 Hemoglobin A1c 12.0 % (4.5-5.6) H Recent Pertinent Medications Outpatient Anti-diabetic Regimen: * Metformin 500mg PO BIDM --> doesnt take d/t GI side effects The patient is currently receiving: * Basal insulin: none ordered * Correctional Insulin: Novolog Correction per scale ACHS Goal Range: Low 140 mg/dL - High 180 mg/dL Correction Factor: 30 mg/dL/unit * Prandial insulin: Per carb ratio of 1 unit per 11 grams CHO consumed * Oral Agents: None Risk Factors for Insulin Resistance: * Infection * Diet * Obesity Assessment & Plan ASSESSMENT: * 46yo T2DM male with poor outpatient control. * Spoke with patient and family in great detail about elevated A1c and need for insulin at discharge. * Discussed the evidence and benefits of metformin with T2DM. Metformin will help keep doses of insulin lower and promote weight loss. Metform may protect against coronary atherosclerosis in prediabetes and early diabetes mellitus among men. 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 He said that he has not been very consistent with taking metformin so his body really hasn't had the opportunity to adjust to the metformin. He verbalized that he is willing to restart metformin at a low dose and consistently take it to see if the diarrhea subsides. Recommend resuming this whenever his scrotal cellulitis is improved as the diarrhea may aggravate this. * Also discussed newer antidiabetic agents like SGLT2-inhibitors and GLP-1s. Discussed insurance info with Sharonda Mello who wasn't able to provide any cost info for these agents unless the Dr wrote a Rx and it was submitted. I found the [facility] Family insurance plan formulary on line and it looks like these newer agents are step therapy restricted. Unfortunately, pt will have to try older agents first without improvement and then he will qualify for the newer agents. * Counselled patient on the signs, symptoms, and treatment of hypoglycemia * BSGs since admission: 284, 249, 304 * Pt admitted with hyperglycemia and only bolus/SSI started. No basal insulin ordered * Will start with weight/moderate stress dosing and then adjust based on BSG trends. PLAN FOR INPATIENT GLYCEMIC CONTROL: * Basal insulin: wt/st = 2 * Lantus 48 units SQ daily - first dose now * Additional 10 units SQ x 1 dose at HS if BSG > 180 * Will try to keep basal insulin once daily to promote less complicated regimen at discharge and increase compliance * Bolus insulin: wt/st = 3 * NovoLog per scale ACHS or Q6hrs while NPO * Goal Range: Low 120 mg/dL - High 150 mg/dL {slightly higher range d/t elevated A1c, pt may feel hypo at otherwise normal BSG} * Correction Factor: 10 mg/dL/unit * Nutritional / Prandial insulin per carb ratio of 1 unit per 4 grams CHO consumed Looking forward to discharge: A1c = 12% patient will need triple therapy vs combination injection therapy Recommend basal insulin, metformin, + {glipizide vs NovoLog} * Basal insulin: Lantus is a tier 2 drug on insurance formulary {no tier 1 basal insulins}. Recommend once daily dose given in the morning and possibly initiating a titration until he can follow up with PCP vs [facility] diabetes clinic. * Dose TBD closer to discharge * Metformin: Metformin is a tier 1 drug on insurance formulary. Recommend Metformin XR 500mg PO daily with breakfast. May want to start this after scrotal cellulitis improves as diarrhea may aggravate infection. Dose very conservatively to prevent AE. Typically the XR version of metformin is tolerated better than the IR. * Continue to titrate metformin dosing upwards as recommended. Dosage increases should be made in increments of 500 mg weekly, up to 2,000 mg/day PO, given in divided doses. Doses above 2000 mg/day may be better tolerated if divided and given 3 times per day with meals. Max: 2,550 mg/day PO, in divided doses. * Glipizide: Glipizide is a tier 1 drug on insurance formulary. Recommend 5 mg PO once daily given 30 minutes before breakfast. May titrate by 5mg up to 15mg PO daily vs 10-20 mg PO BIDM. * May consider NovoLog instead of glipizide for prandial coverage. Recommend a fixed dose to be given with the largest meal of the day. * Dosing to be determined. * Please note that the plan above was derived based on current level of insulin resistance and hospital stress. These recommendations are appropriate for inpatient admission only. Plan of care upon discharge will need to be reassessed to avoid potential outpatient hypo/hyperglycemia. Thank you.
[2017-06-05 15:24] VITALS: BP 154/94; PULSE 76; TEMP 37.3; O2SAT 98
--- NOTE | 2017-06-05 16:54 | Progress Note ---
Medicine Progress Note Date & Time of Visit: Jun 05, 2017 at 11:00. Subjective 46 yo diabetic M presents with scrotal cellulitis poss 2/2 follicultis -fevers and chills reported overnight -significant scrotal pain and swelling with no drainage and improvement of pain and swelling somewhat overnight per patient -tolerating PO -denies nausea Objective Last 8 Hrs Date Time Temp Pulse Resp B/P (MAP) Pulse Ox O2 Delivery O2 Flow Rate FiO2 06/05/17 15:24 37.3 76 17 154/94 (114) 98 Room Air 06/05/17 11:27 37.3 06/05/17 10:57 37.4 Physical Exam: GEN: obese, in no acute distress, alert and appropriate HEENT: NC/AT, normal sclerae, MMM CARDIO: reg rate, S1/2 heard without m/g/r LUNGS: CTA bilaterally, no crackles, rales or wheezes, good diaphragmatic excursion ABD: soft, non-tender, non-distended, no rebound or guarding, +BS : penis and scrotum are inflamed and swollen with nonpurulent erythema all over this area not crossing into perineum or beyond inguinal folds. No extension of erythema onto abdomen. Small area of induration and TTP on the R scrotal area. +odor present EXTREMITY: RP and DP palpable 2+ bilat, no LE swelling or edema, extremities are warm and well-perfused NEURO: CN 2-12 grossly intact MUSC: 5/5 strength throughout, no gross focal deficits SKIN: warm and dry Laboratory Results: 06/05/17 05:49 06/05/17 05:49 Test 06/04/17 17:40 06/04/17 17:53 06/04/17 18:20 06/05/17 05:49 Immature Granulocyte % (Auto) 0.2 % White Blood Count 13.62 K/uL (4.8-10.8) Red Blood Count 4.80 M/uL (4.7-6.1) 4.32 M/uL (4.7-6.1) Hemoglobin 14.9 g/dL (14.0-18.0) Hematocrit 41.0 % (42-52) Mean Corpuscular Volume 85.4 fL (80-100) 86.1 fL (80-100) Mean Corpuscular Hemoglobin 31.0 pg (25-34) 30.6 pg (25-34) Mean Corpuscular Hemoglobin Concent 36.3 g/dl (32-36) 35.5 g/dl (32-36) Platelet Count 237 K/uL (130-400) Mean Platelet Volume 11.8 fL (7.4-10.4) 10.2 fL (7.4-10.4) Neutrophils (%) (Auto) 82.5 % Lymphocytes (%) (Auto) 8.2 % Monocytes (%) (Auto) 8.7 % Eosinophils (%) (Auto) 0.3 % Basophils (%) (Auto) 0.1 % Neutrophils # (Auto) 11.22 K/uL (1.4-6.5) Lymphocytes # (Auto) 1.12 K/uL (1.2-3.4) Monocytes # (Auto) 1.19 K/uL (0.11-0.59) Eosinophils # (Auto) 0.04 K/uL (0-0.5) Basophils # (Auto) 0.02 K/uL (0-0.2) Immature Granulocyte # (Auto) 0.03 K/uL (0.00-0.02) Total Bilirubin 0.8 mg/dl (0.2-1) Direct Bilirubin mg/dl (0-0.2) Aspartate Amino Transf (AST/SGOT) 12 U/L (15-37) Alanine Aminotransferase (ALT/SGPT) 22 U/L (12-78) Alkaline Phosphatase 93 U/L (45-117) Total Protein 7.7 gm/dl (6.4-8.2) Albumin 3.2 gm/dl (3.4-5.0) Lipase 115 U/L (73-393) Bedside Hemoglobin 14.3 g/dl (14.0-18.0) Bedside Hematocrit 42 % (42-52) Bedside Sodium 136 mEq/L (135-144) Bedside Potassium 4.2 mEq/L (3.3-5.0) Bedside Chloride 98 mEq/L (101-112) Bedside Total CO2 27 mEq/l (24-31) Bedside Blood Urea Nitrogen 16 mg/dl (7-18) Bedside Creatinine 0.9 mg/dl (0.6-1.3) Bedside Glucose (other) 287 mg/dl (70-99) Bedside Ionized Calcium (Flaco) 1.12 mmol/l (1.12-1.32) Urine Color YELLOW Urine Appearance CLEAR (CLEAR) Urine pH 5.0 (4.5-7.5) Urine Specific [place] > 1.045 (1.000-1.030) Urine Protein 1+ (NEG) Urine Glucose (UA) 3+ (NEG) Urine Ketones 1+ (NEG) Urine Occult Blood NEG (NEG) Urine Nitrite NEG (NEG) Urine Bilirubin NEG (NEG) Urine Urobilinogen NEG (NEG) Urine Leukocyte Esterase NEG (NEG) Urine WBC (Auto) 1-5 /hpf (0-5) Urine RBC (Auto) 0-4 /hpf (0-4) Urine Hyaline Casts (Auto) 1-5 /lpf (0-5) Urine Epithelial Cells (Auto) 5-10 /lpf (0-5) Urine Bacteria (Auto) NEG (NEG) RDW Standard Deviation 38.7 fL (36.4-46.3) RDW Coefficient of Variation 12.3 % (11.5-14.5) Prothrombin Time 10.5 SECONDS (9.0-12.0) Prothromb Time International Ratio 1.0 (0.9-1.1) Activated Partial Thromboplast Time 30.8 SECONDS (21.0-31.0) Partial Thromboplastin Ratio 1.2 Anion Gap 8.0 mmol/L (3-11) Est Creatinine Clear Calc Drug Dose 134.4 ml/min Estimated GFR () 108.8 Estimated GFR (Non- 93.9 BUN/Creatinine Ratio 14.1 (10-20) Estimated Average Glucose 298 mg/dl Hemoglobin A1c 12.0 % (4.5-5.6) Calcium Level 8.6 mg/dl (8.5-10.1) Test 06/05/17 12:16 Bedside Glucose 304 mg/dl (70-99) Date/Time Source Procedure Growth Status 06/04/17 17:45 Blood Blood Culture Pending Received 06/04/17 17:50 Skin Groin Gram Stain - Final Resulted 06/04/17 17:50 Wound Culture - Preliminary Gram Positive Cocci Resulted Last 24 Hours Test 06/04/17 17:40 06/04/17 17:53 06/04/17 18:20 06/04/17 21:06 White Blood Count 13.62 K/uL Red Blood Count 4.80 M/uL Hemoglobin 14.9 g/dL Hematocrit 41.0 % Mean Corpuscular Volume 85.4 fL Mean Corpuscular Hemoglobin 31.0 pg Mean Corpuscular Hemoglobin Concent 36.3 g/dl Platelet Count 237 K/uL Mean Platelet Volume 11.8 fL Neutrophils (%) (Auto) 82.5 % Lymphocytes (%) (Auto) 8.2 % Monocytes (%) (Auto) 8.7 % Eosinophils (%) (Auto) 0.3 % Basophils (%) (Auto) 0.1 % Neutrophils # (Auto) 11.22 K/uL Lymphocytes # (Auto) 1.12 K/uL Monocytes # (Auto) 1.19 K/uL Eosinophils # (Auto) 0.04 K/uL Basophils # (Auto) 0.02 K/uL RDW Standard Deviation 38.2 fL RDW Coefficient of Variation 12.2 % Immature Granulocyte % (Auto) 0.2 % Immature Granulocyte # (Auto) 0.03 K/uL Sodium Level 135 mmol/L Potassium Level 4.0 mmol/L Chloride Level 101 mmol/L Carbon Dioxide Level 26 mmol/L Anion Gap 8.0 mmol/L 16.0 mmol/L Blood Urea Nitrogen 14 mg/dl Creatinine 1.08 mg/dl Est Creatinine Clear Calc Drug Dose 120.7 ml/min Estimated GFR () 95.6 Estimated GFR (Non- 82.5 BUN/Creatinine Ratio 12.7 Random Glucose 291 mg/dl Calcium Level 9.4 mg/dl Total Bilirubin 0.8 mg/dl Direct Bilirubin mg/dl Aspartate Amino Transf (AST/SGOT) 12 U/L Alanine Aminotransferase (ALT/SGPT) 22 U/L Alkaline Phosphatase 93 U/L Total Protein 7.7 gm/dl Albumin 3.2 gm/dl Lipase 115 U/L Bedside Hemoglobin 14.3 g/dl Bedside Hematocrit 42 % Bedside Sodium 136 mEq/L Bedside Potassium 4.2 mEq/L Bedside Chloride 98 mEq/L Bedside Total CO2 27 mEq/l Bedside Blood Urea Nitrogen 16 mg/dl Bedside Creatinine 0.9 mg/dl Bedside Glucose (other) 287 mg/dl Bedside Ionized Calcium (Flaco) 1.12 mmol/l Urine Color YELLOW Urine Appearance CLEAR Urine pH 5.0 Urine Specific [place] > 1.045 Urine Protein 1+ Urine Glucose (UA) 3+ Urine Ketones 1+ Urine Occult Blood NEG Urine Nitrite NEG Urine Bilirubin NEG Urine Urobilinogen NEG Urine Leukocyte Esterase NEG Urine WBC (Auto) 1-5 /hpf Urine RBC (Auto) 0-4 /hpf Urine Hyaline Casts (Auto) 1-5 /lpf Urine Epithelial Cells (Auto) 5-10 /lpf Urine Bacteria (Auto) NEG Bedside Glucose 284 mg/dl Test 06/05/17 05:49 06/05/17 08:07 06/05/17 12:16 White Blood Count 12.38 K/uL Red Blood Count 4.32 M/uL Hemoglobin 13.2 g/dL Hematocrit 37.2 % Mean Corpuscular Volume 86.1 fL Mean Corpuscular Hemoglobin 30.6 pg Mean Corpuscular Hemoglobin Concent 35.5 g/dl RDW Standard Deviation 38.7 fL RDW Coefficient of Variation 12.3 % Platelet Count 203 K/uL Mean Platelet Volume 10.2 fL Prothrombin Time 10.5 SECONDS Prothromb Time International Ratio 1.0 Activated Partial Thromboplast Time 30.8 SECONDS Partial Thromboplastin Ratio 1.2 Sodium Level 135 mmol/L Potassium Level 3.6 mmol/L Chloride Level 103 mmol/L Carbon Dioxide Level 24 mmol/L Anion Gap 8.0 mmol/L Blood Urea Nitrogen 14 mg/dl Creatinine 0.97 mg/dl Est Creatinine Clear Calc Drug Dose 134.4 ml/min Estimated GFR () 108.8 Estimated GFR (Non- 93.9 BUN/Creatinine Ratio 14.1 Random Glucose 248 mg/dl Estimated Average Glucose 298 mg/dl Hemoglobin A1c 12.0 % Calcium Level 8.6 mg/dl Bedside Glucose 249 mg/dl 304 mg/dl Date/Time Source Procedure Growth Status 06/04/17 17:45 Blood Blood Culture Pending Received 06/04/17 17:40 Blood Blood Culture Pending Received 06/04/17 17:50 Skin Groin Gram Stain - Final Resulted 06/04/17 17:50 Wound Culture - Preliminary Gram Positive Cocci Resulted Assessment & Plan 46 yo diabetic M presents with scrotal cellulitis poss 2/2 follicultis 1. Scrotal cellulitis-somewhat improved per patient on Vanc/Zosyn overnight. Fevers and chills persist. CT a/p revealed no abscess. ? folliculitis based on history of manipulation of two ingrown hairs. There is an area of induration on the R scrotum but no purulent drainage. Encouraged support with ambulation. Cont abx pending blood cultures. With insensible losses with fever overnight and working harder to move, will combat insensible losses with 1 L NSS. Pt encouraged to stay hydrated. 2. DMII-uncontrolled. Long conversation with pharmacist and diabetic nurse educator for approved regimen going home (see their notes for details). Currently uncontrolled on ISS/glargine with inpatient glycemic pharmacist troubleshooting. 3. PHAN on CPAP 4. Obesity Full Code DVT proph-Lovenox. Dispo-likely 2-3 more days in hospital with acute infection. Mirian Ordoñez DO [facility] Hospitalist Current Inpatient Medications: Current Inpatient Medications Medications (Trade) Dose Ordered Sig/Ena Route Start Time Stop Time Status Last Admin Dose Admin Ioversol (Optiray 320) 100 ml UD PRN IV 06/04/17 17:30 06/08/17 17:29 Enoxaparin Sodium (Lovenox Inj) 40 mg DAILY SQ 06/05/17 09:00 07/05/17 08:59 06/05/17 09:23 40 MG Acetaminophen (Tylenol Tab) 650 mg Q4H PRN PO 06/04/17 20:00 07/04/17 19:59 06/04/17 23:52 650 MG Morphine Sulfate (MoRPHine SULFATE INJ) 2 mg Q3HWA PRN IV 06/04/17 20:00 06/18/17 19:59 06/04/17 22:00 2 MG Insulin Aspart (novoLOG ASPART) SLIDING SCALE If C... ACHS SC 06/04/17 21:00 07/04/17 20:59 06/05/17 13:21 29 UNITS Glucose (Glucose 40% Gel) 15-30 GRAMS 15 GRAMS... UD PRN PO 06/04/17 20:00 07/04/17 19:59 Glucose (Glucose Chew Tab) 4-8 Tablets 4 Tabl... UD PRN PO 06/04/17 20:00 07/04/17 19:59 Dextrose (Dextrose 50% 50ML Syringe) 25-50ML OF 50% DW IV FOR... UD PRN IV 06/04/17 20:00 07/04/17 19:59 Glucagon (Glucagon Inj) 1 mg UD PRN SQ 06/04/17 20:00 07/04/17 19:59 Piperacillin Sod/ Tazobactam Sod 4.5 gm/Dextrose 120 ml @ 30 mls/hr Q8H IV 06/05/17 00:00 06/15/17 00:00 06/05/17 16:28 30 MLS/HR Piperacillin Sod/ Tazobactam Sod (Consult) 1 ea UD PRN N/A 06/04/17 21:30 07/04/17 21:29 Vancomycin HCl (Consult) 1 ea UD PRN N/A 06/04/17 21:30 07/04/17 21:29 Ketorolac Tromethamine (Toradol Inj) 30 mg Q6H PRN IV 06/05/17 01:00 06/10/17 00:59 06/05/17 15:47 30 MG Miscellaneous Information (Consult Glycemic Management Pharmacy) 1 [facility] PRN N/A 06/05/17 09:48 07/05/17 09:47 Insulin Glargine (Lantus Solostar Pen) see protocol text 06/05/17 ONCE SC 06/05/17 21:00 06/05/17 21:01 Insulin Glargine (Lantus Solostar Pen) 48 units DAILY SC 06/06/17 09:00 07/06/17 08:59 Insulin Aspart (novoLOG ASPART) SLIDING SCALE If C... TODAY@0000,0400 [place] 06/06/17 00:00 06/06/17 04:01
[2017-06-05] MEDS ORDERED: SODIUM CHLORIDE 0.9% 1000ML 1,000 ML IV SCH (17:00)
--- NOTE | 2017-06-05 18:02 | Pharmacy Progress Note ---
Pharmacy Abx Dose Short Note Date of Service Jun 05, 2017. Assessment & Plan Assessment 46 year old male receiving VANC/ZOSYN for treatment of scrotal SSTI * Day # 2 of antimicrobial therapy (started dapto in ED 06/04). Plan Vancomycin * Estimated p'kinetics: Ke~0.104hr-1, T1/2 ~ 6 hours. * LOADING DOSE: Vanc 2750mg (max loading dose--20mg/kg for this pt) * MAINTENANCE DOSE: VANC 1250mg (~9 mg/kg) (in setting of morbid obesity to try to avoid accumulation) * VANC Trough level @ Css: 06/06 @ 1130. ZOSYN: Ordered 4.5 grams IV every 8 hours CI in setting of morbid obesity. Pharmacy will continue to follow and will adjust dose/frequency as necessary. Thank you.
[2017-06-05] MEDS: VANCOMYCIN INJ 1,250 MG in SODIUM CHLORIDE 0.9% 250ML 250 ML IV SCH (20:20)
[2017-06-05] MEDS: ACETAMINOPHEN 325 MG TAB PO PRN (20:20)
[2017-06-05 20:45] VITALS: TEMP 37.6
[2017-06-05 23:02] VITALS: BP 125/80; PULSE 89; TEMP 37.2; O2SAT 94
[2017-06-06] MEDS: INSULIN ASPART 100 UNITS/ML 3 ML PEN SC SCH ×6 (00:15→21:42)
[2017-06-06] MEDS: VANCOMYCIN INJ 1,250 MG in SODIUM CHLORIDE 0.9% 250ML 250 ML IV SCH ×3 (04:00→21:36)
[2017-06-06] MEDS: KETOROLAC TROMETHAMINE 30 MG/ML VIAL IV PRN ×3 (07:00→19:41)
[2017-06-06] MEDS: ACETAMINOPHEN 325 MG TAB PO PRN ×2 (07:03→20:36)
[2017-06-06] MEDS: PIPERACILL/TAZOBAC IV 4.5 GM in DEXTROSE 5% 100ML 100 ML IV SCH ×3 (07:44→23:55)
[2017-06-06 08:12] VITALS: BP 133/80; PULSE 83; TEMP 37.5; O2SAT 93
[2017-06-06] MEDS: ENOXAPARIN 40 MG/0.4 ML SYR SQ SCH (09:12)
[2017-06-06] MEDS: INSULIN GLARGINE SOLOSTAR 100 UNITS/ML 3 ML PEN SC SCH (09:22)
[2017-06-06 11:15] VITALS: BP 134/84; PULSE 77; TEMP 36.9; O2SAT 97
[2017-06-06] MEDS ORDERED: VANCOMYCIN TROUGH ONE (11:30)
[2017-06-06 12:16] LABS: BASO % 0.1 %; BASO ABS # 0.01 K/uL (0-0.2); COMPLETE YES; EOS % 0.4 %; HEMATOCRIT 35.6 % (42-52); IG% 0.5 %; LYMPH % 13.5 %; LYMPH ABS # 1.47 K/uL (1.2-3.4); MEAN CELL VOLUME 86.6 fL (80-100); MEAN CORPUSCULAR HEMOGLOBIN 30.7 pg (25-34); MEAN CORPUSCULAR HGB CONC 35.4 g/dl (32-36); MEAN PLATELET VOLUME 10.4 fL (7.4-10.4); NEUT % 76.5 %; PLATELET COUNT 215 K/uL (130-400); RED BLOOD COUNT 4.11 M/uL (4.7-6.1); WHITE BLOOD COUNT 10.92 K/uL (4.8-10.8)
[2017-06-06 12:35] LABS: CREATININE 1.12 mg/dl (0.60-1.40)
[2017-06-06 12:36] LABS: BUN/CREATININE RATIO 16.8 (10-20); CALCIUM 8.6 mg/dl (8.5-10.1); POTASSIUM 3.5 mmol/L (3.5-5.1)
[2017-06-06 13:05] VITALS: BMI 43.5
--- NOTE | 2017-06-06 13:23 | Pharmacy Progress Note ---
Pharmacy Abx Dose Short Note Date of Service Jun 06, 2017. Assessment & Plan Trough came 15.9mcg/mL. Unsure what trough at Css will look like. Continue current Vanco regimen. I have ordered a trough for 06/07/17 @0330 to get a better picture of Css. Renal fxn looks good. Wound cx growing CoNS and Group B strep. Will discuss with provider about possible d/c'ing of Zosyn. Pharmacy will continue to follow and will adjust dose/frequency as necessary. Thank you.
[2017-06-06 15:19] VITALS: BP 140/84; PULSE 83; TEMP 37.4; O2SAT 95
--- NOTE | 2017-06-06 16:58 | Progress Note ---
Medicine Progress Note Date & Time of Visit: Jun 06, 2017 at 16:58 . Subjective Chills and sweats last night. No documented fever. Scrotal pain somewhat better. Blood sugars improved. No chest pain. No cough or SOB. No nausea or vomiting. No diarrhea. . Objective Last 8 Hrs Date Time Temp Pulse Resp B/P (MAP) Pulse Ox O2 Delivery O2 Flow Rate FiO2 06/06/17 15:19 37.4 83 18 140/84 (102) 95 Room Air 06/06/17 11:15 36.9 77 22 134/84 (101) 97 Room Air Physical Exam: General- no distress Lungs- clear Heart- RRR Abdomen- + BS, soft, nontender - scrotal + right inguinal erythema Extremities- no pretibial edema or calf tenderness Neuro- alert . Laboratory Results: Last 24 Hours Test 06/05/17 17:03 06/05/17 20:44 06/05/17 23:57 06/06/17 03:54 Bedside Glucose 262 mg/dl 285 mg/dl 129 mg/dl 116 mg/dl Test 06/06/17 07:58 06/06/17 11:55 06/06/17 11:58 Bedside Glucose 149 mg/dl 267 mg/dl White Blood Count 10.92 K/uL Red Blood Count 4.11 M/uL Hemoglobin 12.6 g/dL Hematocrit 35.6 % Mean Corpuscular Volume 86.6 fL Mean Corpuscular Hemoglobin 30.7 pg Mean Corpuscular Hemoglobin Concent 35.4 g/dl Platelet Count 215 K/uL Mean Platelet Volume 10.4 fL Neutrophils (%) (Auto) 76.5 % Lymphocytes (%) (Auto) 13.5 % Monocytes (%) (Auto) 9.0 % Eosinophils (%) (Auto) 0.4 % Basophils (%) (Auto) 0.1 % Neutrophils # (Auto) 8.36 K/uL Lymphocytes # (Auto) 1.47 K/uL Monocytes # (Auto) 0.98 K/uL Eosinophils # (Auto) 0.04 K/uL Basophils # (Auto) 0.01 K/uL RDW Standard Deviation 38.6 fL RDW Coefficient of Variation 12.1 % Immature Granulocyte % (Auto) 0.5 % Immature Granulocyte # (Auto) 0.06 K/uL Sodium Level 136 mmol/L Potassium Level 3.5 mmol/L Chloride Level 105 mmol/L Carbon Dioxide Level 25 mmol/L Anion Gap 6.0 mmol/L Blood Urea Nitrogen 19 mg/dl Creatinine 1.12 mg/dl Est Creatinine Clear Calc Drug Dose 116.4 ml/min Estimated GFR () 91.5 Estimated GFR (Non- 78.9 BUN/Creatinine Ratio 16.8 Random Glucose 285 mg/dl Calcium Level 8.6 mg/dl Vancomycin Level Trough 15.9 mcg/ml Assessment & Plan SCROTAL CELLULITIS No apparent abscess / gas per CT. Blood cultures negative. Wound culture growing coag neg Staph and group B beta hemolytic Strep. Receiving IV vancomycin and piperacillin / tazobactam. Probably still needs piperacillin / tazobactam for gram neg and anaerobic coverage. Consult ID. DM TYPE 2 Poorly controlled. Random blood sugar at time of presentation was 291. Hgb A1C 12. Diabetes team consulted. Receiving Lantus + NovoLog. FBS today = 149. SLEEP APNEA Continue CPAP. VTE PROPHYLAXIS SQ enoxaparin. Ambulate. DISPOSITION Expected discharge to home. Family Medicine follow-up with Dr. Nayak. . Current Inpatient Medications: Current Inpatient Medications Medications (Trade) Dose Ordered Sig/Ena Route Start Time Stop Time Status Last Admin Dose Admin Ioversol (Optiray 320) 100 ml UD PRN IV 06/04/17 17:30 06/08/17 17:29 Enoxaparin Sodium (Lovenox Inj) 40 mg DAILY SQ 06/05/17 09:00 07/05/17 08:59 06/06/17 09:12 40 MG Acetaminophen (Tylenol Tab) 650 mg Q4H PRN PO 06/04/17 20:00 07/04/17 19:59 06/06/17 07:03 650 MG Morphine Sulfate (MoRPHine SULFATE INJ) 2 mg Q3HWA PRN IV 06/04/17 20:00 06/18/17 19:59 06/04/17 22:00 2 MG Insulin Aspart (novoLOG ASPART) SLIDING SCALE If C... ACHS SC 06/04/17 21:00 07/04/17 20:59 06/06/17 13:24 25 UNITS Glucose (Glucose 40% Gel) 15-30 GRAMS 15 GRAMS... UD PRN PO 06/04/17 20:00 07/04/17 19:59 Glucose (Glucose Chew Tab) 4-8 Tablets 4 Tabl... UD PRN PO 06/04/17 20:00 07/04/17 19:59 Dextrose (Dextrose 50% 50ML Syringe) 25-50ML OF 50% DW IV FOR... UD PRN IV 06/04/17 20:00 07/04/17 19:59 Glucagon (Glucagon Inj) 1 mg UD PRN SQ 06/04/17 20:00 07/04/17 19:59 Piperacillin Sod/ Tazobactam Sod 4.5 gm/Dextrose 120 ml @ 30 mls/hr Q8H IV 06/05/17 00:00 06/15/17 00:00 06/06/17 16:17 30 MLS/HR Piperacillin Sod/ Tazobactam Sod (Consult) 1 ea UD PRN N/A 06/04/17 21:30 07/04/17 21:29 Vancomycin HCl (Consult) 1 UD PRN N/A 06/04/17 21:30 07/04/17 21:29 Ketorolac Tromethamine (Toradol Inj) 30 mg Q6H PRN IV 06/05/17 01:00 06/10/17 00:59 06/06/17 13:37 30 MG Miscellaneous Information (Consult Glycemic Management Pharmacy) 1 UD PRN N/A 06/05/17 09:48 07/05/17 09:47 Insulin Glargine (Lantus Solostar Pen) 48 units DAILY MS 06/06/17 09:00 07/06/17 08:59 06/06/17 09:22 48 UNITS Vancomycin HCl 1250 mg/Sodium Chloride 275 ml @ 125 mls/hr Q8H IV 06/05/17 20:00 06/15/17 19:59 06/06/17 12:37 125 MLS/HR Insulin Glargine (Lantus Solostar Pen) see protocol text TODAY@1999 MS 06/06/17 20:00 06/06/17 20:01
[2017-06-06] MEDS ORDERED: INSULIN GLARGINE SOLOSTAR 100 UNITS/ML 3 ML PEN SC SCH (20:00)
[2017-06-06 23:01] VITALS: BP 137/89; PULSE 75; TEMP 37.1; O2SAT 96
[2017-06-07] MEDS: KETOROLAC TROMETHAMINE 30 MG/ML VIAL IV PRN ×4 (02:01→22:11)
[2017-06-07] MEDS ORDERED: VANCOMYCIN TROUGH ONE (03:30)
[2017-06-07 03:49] LABS: HEMATOCRIT 35.2 % (42-52); MEAN CELL VOLUME 86.7 fL (80-100); MEAN CORPUSCULAR HEMOGLOBIN 30.5 pg (25-34); MEAN CORPUSCULAR HGB CONC 35.2 g/dl (32-36); MEAN PLATELET VOLUME 10.4 fL (7.4-10.4); PLATELET COUNT 237 K/uL (130-400); RED BLOOD COUNT 4.06 M/uL (4.7-6.1); WHITE BLOOD COUNT 12.66 K/uL (4.8-10.8)
[2017-06-07] MEDS: VANCOMYCIN INJ 1,250 MG in SODIUM CHLORIDE 0.9% 250ML 250 ML IV SCH (04:05)
[2017-06-07 04:08] LABS: CREATININE 1.07 mg/dl (0.60-1.40)
[2017-06-07] MEDS: PIPERACILL/TAZOBAC IV 4.5 GM in DEXTROSE 5% 100ML 100 ML IV SCH ×3 (07:58→23:59)
[2017-06-07 08:04] VITALS: BP 164/99; PULSE 83; TEMP 37.3; O2SAT 96
--- NOTE | 2017-06-07 09:03 | Pharmacy Progress Note ---
Glycemic Control Progress Note Date of Service Jun 07, 2017. Scope Glycemic Pharmacist consulted for glycemic control to write orders per [facility] inpatient glycemic control protocol. Objective Accuchecks BSG (last 24hrs): Test 06/06/17 11:55 06/06/17 11:58 06/06/17 17:04 06/06/17 20:38 Random Glucose 285 mg/dl (70-99) Bedside Glucose 267 mg/dl (70-99) 122 mg/dl (70-99) 174 mg/dl (70-99) HbA1c: Test 06/05/17 05:49 Hemoglobin A1c 12.0 % (4.5-5.6) H Recent Pertinent Medications The patient is currently receiving: * Basal insulin: Lantus 48 units every 24 hours in the morning * Correctional Insulin: Novolog Correction per scale ACHS Goal Range: Low 120 mg/dL - High 150 mg/dL Correction Factor: 8 mg/dL/unit * Prandial insulin: Per carb ratio of 1 unit per 3 grams CHO consumed Outpatient Anti-Diabetic Meds Metformin - noncompliant Assessment & Plan ASSESSMENT: * See progress note from 06/05/17 for more background info, in short: * Pt receiving SQ basal bolus insulin regimen for hyperglycemia secondary to baseline DM (outpatient regimen on hold), stress/infection * Patient is currently receiving an average of 128 units of insulin per day * 48 units of basal insulin * 80 units of prandial/correctional insulin * BSGs ranging 122 - 267 mg/dl over the past 24hrs * Changes needed to insulin regimen: * AM Fasting BSG = 151 mg/dl. This is close to goal range for patient based on inpatient targets and co-morbidities. Therefore Basal insulin will be continue at current dose for the time being. * Post-prandial BSGs are were initially elevated yesterday, I tighten CF/CR and have seen improvement - will continue current tightened control but may loosen as the day goes on depending on BSG trend. * Additional notes / comments: * Melissa Mendenhall, PharmD met with patient/CDE and discussed current outpatient control and A1c of ~12% * Pt willing to make changes when discharged - please see D/C recommendations below and contact pharmacy if any questions PLAN FOR INPATIENT GLYCEMIC CONTROL: * Oral Agents * Continue to hold outpatient oral diabetes medications. * Basal insulin * Lantus 48 units SQ daily * Bolus insulin * NovoLog per scale ACHS or Q6hrs while NPO * Goal Range: Low 120 mg/dL - High 150 mg/dL * Correction Factor: 8 mg/dL/unit * Nutritional / Prandial insulin per carb ratio of 1 unit per 3 grams CHO consumed Looking forward to discharge: A1c = 12% patient will need triple therapy vs combination injection therapy Recommend basal insulin, metformin, + {glipizide vs NovoLog} * Basal insulin: Lantus is a tier 2 drug on insurance formulary {no tier 1 basal insulins}. Recommend once daily dose given in the morning and possibly initiating a titration until he can follow up with PCP vs [facility] diabetes clinic. * Dose TBD closer to discharge * Metformin: Metformin is a tier 1 drug on insurance formulary. Recommend Metformin XR 500mg PO daily with breakfast. May want to start this after scrotal cellulitis improves as diarrhea may aggravate infection. Dose very conservatively to prevent AE. Typically the XR version of metformin is tolerated better than the IR. * Continue to titrate metformin dosing upwards as recommended. Dosage increases should be made in increments of 500 mg weekly, up to 2,000 mg/day PO, given in divided doses. Doses above 2000 mg/day may be better tolerated if divided and given 3 times per day with meals. Max: 2,550 mg/day PO, in divided doses. * Glipizide: Glipizide is a tier 1 drug on insurance formulary. Recommend 5 mg PO once daily given 30 minutes before breakfast. May titrate by 5mg up to 15mg PO daily vs 10-20 mg PO BIDM. * May consider NovoLog instead of glipizide for prandial coverage. Recommend a fixed dose to be given with the largest meal of the day. * Dosing to be determined. * Please note that the plan above was derived based on current level of insulin resistance and hospital stress. These recommendations are appropriate for inpatient admission only. Plan of care upon discharge will need to be reassessed to avoid potential outpatient hypo/hyperglycemia. Thank you.
[2017-06-07] MEDS: ENOXAPARIN 40 MG/0.4 ML SYR SQ SCH (09:09)
[2017-06-07] MEDS: INSULIN ASPART 100 UNITS/ML 3 ML PEN SC SCH ×4 (09:12→22:16)
[2017-06-07] MEDS: INSULIN GLARGINE SOLOSTAR 100 UNITS/ML 3 ML PEN SC SCH (09:13)
--- NOTE | 2017-06-07 09:44 | Pharmacy Progress Note ---
Pharmacy Abx Dose Short Note Date of Service Jun 07, 2017. Assessment & Plan Pt receiving Vanco/Zosyn for scrotal cellulitis. Nil gas and abscess. Cultures growing CoNS and GBS (sensitivities pending). Trough this AM came back therapeutic at 17.1mcg/mL. Renal fxn has remained stable throughout hospital duration. Likely at [facility] at this juncture. Will not order any further lvls unless there is change in renal fxn. Pharmacy will continue to follow and will adjust dose/frequency as necessary. Thank you.
--- NOTE | 2017-06-07 10:48 | Progress Note ---
Progress Note Date of Service Jun 07, 2017. Progress Note ID Consult Dictated #[id number] A/P: 1. Scrotal Cellulitis - GBS 2. Leukocytosis -Will change abx to zosyn and zyvox, GBS clina resistant -Elevation -Consider urology eval -Follow blood cultures negative to date -Thank you
--- NOTE | 2017-06-07 11:03 | INFECT. DISEASE CONSULTATION ---
DATE OF CONSULTATION: 06/07/2017 REQUESTING PHYSICIAN: Dr. Najera. HISTORY OF PRESENT ILLNESS: This is a 46-year-old gentleman who was sent to the hospital for scrotal cellulitis. He was seen in the outpatient center and was referred to the ER. He states he began with subjective fevers and chills at home on Saturday night until Saturday and had a small pimple on the scrotal area, which he picked it and subsequently had drainage. He then developed worsening erythema, warmth, swelling and tenderness. He did undergo a CAT scan, which showed no fluid collection, but fat stranding edema and inflammation. The superficial wound culture was obtained and grew coagulase negative staph and group B strep. Sensitivities are pending. Blood cultures were obtained in the Emergency Room and are negative. He did have a T-max initially of 38, but has otherwise been afebrile; however, he continues to complain of feeling episodes of being warm and cold. He relates this to his Toradol infusions. He was placed empirically on vancomycin and Zosyn and he remains on these antibiotics. His initial white blood cell count was 13.6. This has improved minimally to 12.6. He denies any drainage at this time, but he has worsening induration and pain into the right side of his groin. He is urinating without difficulty, but has significant swelling and it is difficult to pass urine. He denies any abdominal pain. He has no chest pain, cough, shortness of breath, nausea, vomiting or diarrhea. He appears to be tolerating his antibiotics well. His remaining review of systems is reviewed and is unremarkable. PAST MEDICAL HISTORY: Significant for type 2 diabetes, obesity, Tourette's syndrome, erectile dysfunction and OCD. FAMILY HISTORY: Noncontributory. SOCIAL HISTORY: Negative for drug use, alcohol use or tobacco use. ALLERGIES: He has no known drug allergies. MEDICATIONS: Include Lantus, vancomycin, Lovenox, Toradol, Zosyn, insulin, Tylenol, and morphine. PHYSICAL EXAMINATION: VITAL SIGNS: He is afebrile, pulse 83, respiratory rate 18, blood pressure 164/99, and oxygen saturation is 96% on room air. GENERAL: He is awake, alert and oriented x3. He is in no acute distress. HEENT: Mucous membranes are moist. Extraocular muscles are intact. HEART: Regular. LUNGS: Clear bilaterally. ABDOMEN: Soft and nondistended. EXTREMITIES: There is no lower extremity edema. SKIN: Without rash. Examination of the scrotal area reveals significant edema, warmth, tenderness, induration and fluctuance of the scrotal area. I do not see any active drainage. There is significant induration into the right groin and there is significant edema. LABORATORY STUDIES: CBC reveals a white blood cell count of 12.6 and hemoglobin 12.4. Glucose is 237. Chemistry panel reveals a sodium of 139, potassium 3.5, chloride 105, bicarbonate 25, BUN 19, and creatinine 1.1. Glucose has been elevated. LFTs were normal on admission. Urinalysis was negative. Vancomycin trough today is 17.1. Blood cultures are no growth to date. A wound culture from the 7th is growing group B strep with resistance to azithromycin and clindamycin. Otherwise, this isolate is sensitive. Imaging is reviewed as above. ASSESSMENT AND PLAN: Scrotal cellulitis. He has not had significant improvement on current antibiotics. My initial indication was to begin clindamycin for antitoxin effect; however, this isolate has come back resistant to clindamycin. I will therefore place him on Zyvox in addition to his Zosyn. His blood cultures will be followed. I would suggest urology evaluation as he has not had significant improvement with broad spectrum antibiotics. I will follow along with you. Thank you for this consultation.
[2017-06-07] MEDS: LINEZOLID 600 MG TAB PO SCH ×2 (13:30→22:10)
[2017-06-07 15:17] VITALS: BP 150/97; PULSE 73; TEMP 37.1; O2SAT 94
[2017-06-07] MEDS: ACETAMINOPHEN 325 MG TAB PO PRN (16:09)
--- NOTE | 2017-06-07 20:29 | Progress Note ---
Medicine Progress Note Date & Time of Visit: Jun 07, 2017 at 15:50 . Subjective Intermittent sweats. Persistent scrotal pain. Using CPAP. No SOB. No chest pain. No nausea, vomiting, diarrhea. . Objective Last 8 Hrs Date Time Temp Pulse Resp B/P (MAP) Pulse Ox O2 Delivery O2 Flow Rate FiO2 06/07/17 15:17 37.1 73 17 150/97 (114) 94 Room Air Physical Exam: General- no distress Lungs- clear Heart- RRR Abdomen- + BS, soft, nontender - scrotal + suprapubic erythema, warmth, induration Extremities- no pretibial edema or calf tenderness Neuro- alert . Laboratory Results: Last 24 Hours Test 06/06/17 20:38 06/07/17 03:30 06/07/17 08:02 06/07/17 12:07 Bedside Glucose 174 mg/dl 151 mg/dl 216 mg/dl White Blood Count 12.66 K/uL Red Blood Count 4.06 M/uL Hemoglobin 12.4 g/dL Hematocrit 35.2 % Mean Corpuscular Volume 86.7 fL Mean Corpuscular Hemoglobin 30.5 pg Mean Corpuscular Hemoglobin Concent 35.2 g/dl RDW Standard Deviation 38.7 fL RDW Coefficient of Variation 12.2 % Platelet Count 237 K/uL Mean Platelet Volume 10.4 fL Creatinine 1.07 mg/dl Est Creatinine Clear Calc Drug Dose 121.8 ml/min Estimated GFR () 96.7 Estimated GFR (Non- 83.4 Vancomycin Level Trough 17.1 mcg/ml Test 06/07/17 17:20 Bedside Glucose 131 mg/dl Assessment & Plan SCROTAL CELLULITIS No apparent abscess / gas per CT. Blood cultures negative. Wound culture growing coag neg Staph and group B beta hemolytic Strep. Initially treated with IV vancomycin and piperacillin / tazobactam without improvement. ID consulted. Linezolid started for gram + coverage. Vancomycin discontinued. Continue IV piperacillin / tazobactam. Consult Urology. DM TYPE 2 Poorly controlled. Random blood sugar at time of presentation was 291. Hgb A1C 12. Diabetes team consulted. Receiving Lantus + NovoLog. FBS today = 151. SLEEP APNEA Continue CPAP. VTE PROPHYLAXIS SQ enoxaparin. Ambulate. DISPOSITION Expected discharge to home. Family Medicine follow-up with Dr. Nayak. . Current Inpatient Medications: Current Inpatient Medications Medications (Trade) Dose Ordered Sig/Ena Route Start Time Stop Time Status Last Admin Dose Admin Ioversol (Optiray 320) 100 ml UD PRN IV 06/04/17 17:30 06/08/17 17:29 Enoxaparin Sodium (Lovenox Inj) 40 mg DAILY SQ 06/05/17 09:00 07/05/17 08:59 06/07/17 09:09 40 MG Acetaminophen (Tylenol Tab) 650 mg Q4H PRN PO 06/04/17 20:00 07/04/17 19:59 06/07/17 16:09 650 MG Morphine Sulfate (MoRPHine SULFATE INJ) 2 mg Q3HWA PRN IV 06/04/17 20:00 06/18/17 19:59 06/04/17 22:00 2 MG Insulin Aspart (novoLOG ASPART) SLIDING SCALE If C... ACHS SC 06/04/17 21:00 07/04/17 20:59 06/07/17 18:41 20 UNITS Glucose (Glucose 40% Gel) 15-30 GRAMS 15 GRAMS... UD PRN PO 06/04/17 20:00 07/04/17 19:59 Glucose (Glucose Chew Tab) 4-8 Tablets 4 Tabl... UD PRN PO 06/04/17 20:00 07/04/17 19:59 Dextrose (Dextrose 50% 50ML Syringe) 25-50ML OF 50% DW IV FOR... UD PRN IV 06/04/17 20:00 07/04/17 19:59 Glucagon (Glucagon Inj) 1 mg UD PRN SQ 06/04/17 20:00 07/04/17 19:59 Piperacillin Sod/ Tazobactam Sod 4.5 gm/Dextrose 120 ml @ 30 mls/hr Q8H IV 06/05/17 00:00 06/15/17 00:00 06/07/17 16:08 30 MLS/HR Piperacillin Sod/ Tazobactam Sod (Consult) 1 ea UD PRN N/A 06/04/17 21:30 07/04/17 21:29 Ketorolac Tromethamine (Toradol Inj) 30 mg Q6H PRN IV 06/05/17 01:00 06/10/17 00:59 06/07/17 13:56 30 MG Miscellaneous Information (Consult Glycemic Management Pharmacy) 1 ea UD PRN N/A 06/05/17 09:48 07/05/17 09:47 Insulin Glargine (Lantus Solostar Pen) 48 units DAILY SC 06/06/17 09:00 07/06/17 08:59 06/07/17 09:13 48 UNITS Linezolid (Zyvox Tab) 600 mg BID PO 06/07/17 12:00 06/17/17 11:59 06/07/17 13:30 600 MG
[2017-06-07 23:28] VITALS: BP 154/84; PULSE 85; TEMP 37.1; O2SAT 94
[2017-06-08] MEDS ORDERED: NURSING VERBAL MED ORDER ONE ×2 (06:45→12:15)
[2017-06-08] MEDS ORDERED: INSULIN ASPART 100 UNITS/ML 3 ML PEN SC SCH (07:00)
[2017-06-08 07:02] LABS: HEMATOCRIT 34.1 % (42-52); MEAN CORPUSCULAR HEMOGLOBIN 30.4 pg (25-34); MEAN CORPUSCULAR HGB CONC 34.9 g/dl (32-36); MEAN PLATELET VOLUME 10.1 fL (7.4-10.4); PLATELET COUNT 218 K/uL (130-400); RED BLOOD COUNT 3.92 M/uL (4.7-6.1); WHITE BLOOD COUNT 10.79 K/uL (4.8-10.8)
[2017-06-08] MEDS: KETOROLAC TROMETHAMINE 30 MG/ML VIAL IV PRN ×3 (07:05→21:48)
[2017-06-08] MEDS: INSULIN GLARGINE SOLOSTAR 100 UNITS/ML 3 ML PEN SC SCH (07:18)
[2017-06-08] MEDS: PIPERACILL/TAZOBAC IV 4.5 GM in DEXTROSE 5% 100ML 100 ML IV SCH ×3 (07:22→23:31)
[2017-06-08] MEDS: LINEZOLID 600 MG TAB PO SCH ×2 (07:22→21:07)
[2017-06-08] MEDS: ENOXAPARIN 40 MG/0.4 ML SYR SQ SCH (07:23)
[2017-06-08 07:34] VITALS: BP 148/85; PULSE 73; TEMP 37.5; O2SAT 93
[2017-06-08] MEDS ORDERED: ATROPINE SULFATE 0.1 MG/ML 5ML SYR IV PRN (07:45)
[2017-06-08] MEDS ORDERED: EpHEDrine SULFATE INJ 50 MG/ML AMP IV PRN (07:45)
[2017-06-08] MEDS ORDERED: ONDANSETRON INJ 2 MG/ML 2 ML VIAL IV PRN (07:45)
--- NOTE | 2017-06-08 08:45 | Urology Consultation ---
History General Date of Service: Jun 07, 2017. Primary Care Physician: German Nayak M.D. (MEDICAL) Pt seen a urologist before?: No History of Present Illness 47 y/o obese male with hx of DM presented to the ED on 06/04/17 with a 24 hour hx of scrotal swelling and pain. He states that 1 day prior he did notice a small pimple which he picked. It then drained a small amount of fluid. There after it became warm, tender, and swollen. He presented to the ED due to worsening sxs. CT scan did now show evidence of air in tissue or abscess formation. He was started on broad spectrum abx. Thus far his sxs have not improved as much as expected. His WBC has improved minimally. ID on board and managing abx. The redness appears stable on the scrotum and lower abdomen. No fevers. Chills. No nausea. No vomitting. He has not had this happen in the past. He is voiding w/o difficulty. No hem. No dys. Laboratory Labs were reviewed and are within normal limits unless listed below. Labs are available in the chart and at [facility] Problem List Medical Problems: (1) Cellulitis Status: Acute (2) Hyperglycemia due to type 2 diabetes mellitus Status: Acute (3) Vertigo Status: Acute (4) Vomiting Status: Acute Past History other Past Surgical History: other Family History No pertinent family history Social History Hx Tobacco Use In Past Year?: No Marital status: single History of MDRO No Allergies Coded Allergies: No Known Allergies (Unverified , 06/04/17) Medications Home Medications: Home Meds and Scripts Medications Dose Route/Sig Max Daily Dose Days Date Category Dose Instructions Glucophage (Metformin Hcl) 500 Mg Tab 1 Tab PO BID 06/04/17 Reported Viagra (Sildenafil Citrate) 100 Mg Tab 100 Mg PO UD 06/04/17 Reported take 1/2 tab to 1 tablet by mouth 1 to 4 hr before intercourse. No more than 1 dose in 24 hrs. Inpatient Medications: Current Inpatient Medications Medications (Trade) Dose Ordered Sig/Ena Route Start Time Stop Time Status Last Admin Dose Admin Ioversol (Optiray 320) 100 ml UD PRN IV 06/04/17 17:30 06/08/17 17:29 Enoxaparin Sodium (Lovenox Inj) 40 mg DAILY SQ 06/05/17 09:00 07/05/17 08:59 06/08/17 07:23 40 MG Acetaminophen (Tylenol Tab) 650 mg Q4H PRN PO 06/04/17 20:00 07/04/17 19:59 06/07/17 16:09 650 MG Morphine Sulfate (MoRPHine SULFATE INJ) 2 mg Q3HWA PRN IV 06/04/17 20:00 06/18/17 19:59 06/04/17 22:00 2 MG Glucose (Glucose 40% Gel) 15-30 GRAMS 15 GRAMS... UD PRN PO 06/04/17 20:00 07/04/17 19:59 Glucose (Glucose Chew Tab) 4-8 Tablets 4 Tabl... UD PRN PO 06/04/17 20:00 07/04/17 19:59 Dextrose (Dextrose 50% 50ML Syringe) 25-50ML OF 50% DW IV FOR... UD PRN IV 06/04/17 20:00 07/04/17 19:59 Glucagon (Glucagon Inj) 1 mg UD PRN SQ 06/04/17 20:00 07/04/17 19:59 Piperacillin Sod/ Tazobactam Sod 4.5 gm/Dextrose 120 ml @ 30 mls/hr Q8H IV 06/05/17 00:00 06/15/17 00:00 06/08/17 07:22 30 MLS/HR Piperacillin Sod/ Tazobactam Sod (Consult) 1 ea UD PRN N/A 06/04/17 21:30 07/04/17 21:29 Ketorolac Tromethamine (Toradol Inj) 30 mg Q6H PRN IV 06/05/17 01:00 06/10/17 00:59 06/08/17 07:05 30 MG Miscellaneous Information (Consult Glycemic Management Pharmacy) 1 ea UD PRN N/A 06/05/17 09:48 07/05/17 09:47 Insulin Glargine (Lantus Solostar Pen) 48 units DAILY SC 06/06/17 09:00 07/06/17 08:59 06/08/17 07:18 48 UNITS Linezolid (Zyvox Tab) 600 mg BID PO 06/07/17 12:00 06/17/17 11:59 06/08/17 07:22 600 MG Insulin Aspart (novoLOG ASPART) SLIDING SCALE If C... Q6 SC 06/08/17 07:00 07/08/17 06:59 Fentanyl Citrate (Fentanyl Inj) 50 mcg Q5M PRN IV 06/08/17 07:45 06/08/17 13:00 Ondansetron HCl (Zofran Inj) 4 mg ONE PRN IV 06/08/17 07:45 06/08/17 13:00 Ephedrine Sulfate (EpHEDrine SULFATE INJ) 5 mg Q5M PRN IV 06/08/17 07:45 06/08/17 13:00 Atropine Sulfate (Atropine Sulfate 0.1MG/Ml Inj) 0.5 mg Q1M PRN IV 06/08/17 07:45 06/08/17 13:00 Review of Systems Review of Systems Constitutional: + chills, No fever Eyes: No blurred vision Neurological: No dizzy Endocrine: No excessive thirst Gastrointestinal: + abdominal pain Cardiovascular: No chest pain Respiratory: No shortness of breath Skin: + rash Musculoskeletal: No joint pain Blood / Lymphatic: No bleed easily Ears / Nose / Throat: No hearing loss All Other Systems: Reviewed and Negative Physical Exam Vital Signs: Vital Signs Past 12 Hours Date Time Temp Pulse Resp B/P (MAP) Pulse Ox O2 Delivery O2 Flow Rate FiO2 06/08/17 07:34 37.5 73 18 148/85 (106) 93 Room Air 06/08/17 07:20 Room Air CPAP 06/07/17 23:30 Room Air CPAP 06/07/17 23:28 37.1 85 18 154/84 (107) 94 Room Air Physical Exam: General Appearance: WD/WN, no apparent distress ENT: normal ENT inspection Neck: supple, no adenopathy Respiratory/Chest: chest non-tender, normal breath sounds Cardiovascular: regular rate, rhythm, no edema Extremities: normal range of motion 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 Small area draining at base of scrotum. Erythema around scrotum and lower abd. No crepitus. Tender thru out. Assessment & Plan Assessment & Plan (1) Cellulitis Status: Acute (2) Diabetes Scrotal cellulitis. Not improving with abx. Opening now seen at base of scrotum. Plan for I&D. ID consult to manage abx. Will need dressing changes after.
[2017-06-08] MEDS ORDERED: PROPOFOL IV EMULSION 10 MG/ML 20 ML VIAL IV ONE (08:56)
[2017-06-08] MEDS ORDERED: MIDAZOLAM HCL 1 MG/ML 2ML VIAL ONE (08:56)
[2017-06-08] MEDS ORDERED: LIDOCAINE HCL 2% 2 ML VIAL (20MG/ML) ONE (08:56)
[2017-06-08] MEDS ORDERED: FENTANYL CITRATE INJ 50 MCG/1 ML 2 ML VIAL ONE ×3 (08:56→11:08)
[2017-06-08] MEDS ORDERED: BUPIVACAINE 0.5 % 5 MG/1 ML MPF 30ML VIAL ONE (09:40)
[2017-06-08] MEDS ORDERED: ONDANSETRON INJ 2 MG/ML 2 ML VIAL ONE (10:09)
[2017-06-08] MEDS ORDERED: BACITRACIN 50000 UNIT VIAL ONE (10:20)
[2017-06-08] MEDS: FENTANYL CITRATE INJ 50 MCG/1 ML 2 ML VIAL IV PRN ×2 (11:09→11:14)
--- NOTE | 2017-06-08 11:25 | Anesthesiology Progress Note ---
Anesthesia Post Op Note Date & Time Jun 08, 2017 at 11:25 Vital Signs Pain Intensity: 2 Vital Signs Past 12 Hours Date Time Temp Pulse Resp B/P (MAP) Pulse Ox O2 Delivery O2 Flow Rate FiO2 06/08/17 11:10 64 16 148/98 100 Oxymask 10 06/08/17 11:00 71 20 141/92 98 Oxymask 10 06/08/17 10:53 36.5 72 20 125/92 96 Oxymask 06/08/17 07:34 37.5 73 18 148/85 (106) 93 Room Air 06/08/17 07:20 Room Air CPAP 06/07/17 23:30 Room Air CPAP 06/07/17 23:28 37.1 85 18 154/84 (107) 94 Room Air Notes Mental Status: alert / awake / arousable, participated in evaluation Pt Amnestic to Procedure: Yes Nausea / Vomiting: adequately controlled Pain: adequately controlled Airway Patency, RR, SpO2: stable & adequate BP & HR: stable & adequate Hydration State: stable & adequate Anesthetic Complications: no major complications apparent
--- NOTE | 2017-06-08 11:30 | OPERATIVE REPORT ---
DATE OF OPERATION: 06/08/2017 ATTENDING OF RECORD: Yinka Almazan MD SURGEON: Yinka Almazan MD PREOPERATIVE DIAGNOSIS: Scrotal cellulitis. POSTOPERATIVE DIAGNOSIS: Same. PROCEDURE: Incision and drainage of scrotum. ANESTHESIA: General endotracheal. COMPLICATIONS: None. SPECIMENS: Scrotal wound culture, scrotal tissue culture. DRAINS: One-inch Evelyne. PACKING: Two-inch Kerlix. ESTIMATED BLOOD LOSS: 50 mL INDICATIONS: Mr. Nguyen is a 46-year-old male who presented with scrotal cellulitis. He progressed despite being on antibiotics and now presents for surgical intervention. DESCRIPTION OF PROCEDURE: The patient brought to the operative suite, positively identified, placed on the table in the supine position. After induction of general anesthesia, he was placed in a dorsal lithotomy position. The genitalia prepped and draped in a sterile fashion. A timeout was performed. The scrotum was inspected. There was an ulcerated area on the base of the scrotum near the right groin crease that appeared to be necrotic. A 15-blade scalpel was used to incise this area and a pocket of brown-colored purulent drainage was opened up and drained. A culture swab was used in that area. I then used my finger to explore that area and released some minor attachments. Additional purulent fluid subsequently drained. I was able to track this pocket of abscess up the right groin into the right inguinal canal and then stopped. I made a counterincision at the level of the right inguinal canal in order to connect the 2 areas for drainage. I then used a 15-blade scalpel to incise the necrotic tissue that was around the base of the scrotum. This was removed and sent for pathology. I did not see any additional necrotic tissue in the area. A Bovie was used for hemostasis. At this time, a bulb syringe was used with antibiotic solution and the entire area was copiously irrigated. I began most of the irrigation from the right inguinal incision and then allowed the irrigation to run down through the length of the abscess cavity and then out of the incision at the base of the scrotum. At this time, a 1-inch Evelyne drain was placed through the top incision, then the bottom incision, and then tied together in order to prevent removal of the drain inadvertently and to facilitate drainage of the fluid. The incision at the base of the scrotum was then packed with a 2-inch Kerlix and then a dressing of 4 x 4's and ABD was applied over that. The patient tolerated the procedure well. Sponge and needle counts were correct. He was taken to PACU in stable condition. He will need continued followup and dressing changes over the next several weeks until the incision finally heals with prolonged antibiotics. I attest to the content of the Intraoperative Record and any orders documented therein. Any exception s are noted below.
[2017-06-08 11:45] VITALS: BP 145/94; PULSE 69; TEMP 36.9; O2SAT 96
[2017-06-08 12:32] VITALS: BP 156/91; PULSE 69; TEMP 36.7; O2SAT 96
[2017-06-08] MEDS: INSULIN ASPART 100 UNITS/ML 3 ML PEN SC SCH ×3 (13:10→21:00)
[2017-06-08 15:05] VITALS: BP 156/87; PULSE 74; TEMP 36.7; O2SAT 96
[2017-06-08] MEDS: ACETAMINOPHEN 325 MG TAB PO PRN ×2 (17:50→23:31)
--- NOTE | 2017-06-08 20:00 | Progress Note ---
Medicine Progress Note Date & Time of Visit: Jun 08, 2017 at 14:30 . Subjective Seen in consultation by Urology. Taking into OR for incision and drainage of scrotum. Doing well postoperatively. No chest pain. Occasional cough; no dyspnea. No nausea or vomiting. Postop pain well-controlled. . Objective Last 8 Hrs Date Time Temp Pulse Resp B/P (MAP) Pulse Ox O2 Delivery O2 Flow Rate FiO2 06/08/17 15:15 Room Air CPAP 06/08/17 15:05 36.7 74 18 156/87 (110) 96 Room Air 06/08/17 12:32 36.7 69 18 156/91 (112) 96 Room Air Physical Exam: General- no distress Lungs- clear Heart- RRR Abdomen- + BS, soft, nontender - scrotum supported in sling Extremities- no pretibial edema or calf tenderness Neuro- alert . Laboratory Results: Last 24 Hours Test 06/07/17 20:21 06/08/17 06:41 06/08/17 06:48 06/08/17 10:57 Bedside Glucose 243 mg/dl 125 mg/dl 135 mg/dl White Blood Count 10.79 K/uL Red Blood Count 3.92 M/uL Hemoglobin 11.9 g/dL Hematocrit 34.1 % Mean Corpuscular Volume 87.0 fL Mean Corpuscular Hemoglobin 30.4 pg Mean Corpuscular Hemoglobin Concent 34.9 g/dl RDW Standard Deviation 39.5 fL RDW Coefficient of Variation 12.3 % Platelet Count 218 K/uL Mean Platelet Volume 10.1 fL Test 06/08/17 16:54 Bedside Glucose 149 mg/dl Date/Time Source Procedure Growth Status 06/08/17 10:19 Tissue Scrotum Gram Stain Pending Received 06/08/17 10:19 Tissue Scrotum Bacterial Culture Pending Received 06/08/17 10:17 Drainage-Deep Scrotum Gram Stain Pending Received 06/08/17 10:17 Drainage-Deep Scrotum Bacterial Culture Pending Received Assessment & Plan SCROTAL CELLULITIS / ABSCESS No apparent abscess / gas per CT. Blood cultures negative. Wound culture grew coag neg Staph and group B beta hemolytic Strep. Initially treated with IV vancomycin and piperacillin / tazobactam without improvement. ID consulted. Linezolid started for gram + coverage. Vancomycin discontinued. Urology consulted. I&D performed. Continue IV piperacillin / tazobactam. DM TYPE 2 Poorly controlled. Random blood sugar at time of presentation was 291. Hgb A1C 12. Diabetes team consulted. Receiving Lantus + NovoLog. FBS today = 125. SLEEP APNEA Continue CPAP. VTE PROPHYLAXIS SQ enoxaparin. Ambulate. DISPOSITION Expected discharge to home. Family Medicine follow-up with Dr. Nayak. . Current Inpatient Medications: Current Inpatient Medications Medications (Trade) Dose Ordered Sig/Ena Route Start Time Stop Time Status Last Admin Dose Admin Enoxaparin Sodium (Lovenox Inj) 40 mg DAILY SQ 06/05/17 09:00 07/05/17 08:59 06/08/17 07:23 40 MG Acetaminophen (Tylenol Tab) 650 mg Q4H PRN PO 06/04/17 20:00 07/04/17 19:59 06/08/17 17:50 650 MG Morphine Sulfate (MoRPHine SULFATE INJ) 2 mg Q3HWA PRN IV 06/04/17 20:00 06/18/17 19:59 06/04/17 22:00 2 MG Glucose (Glucose 40% Gel) 15-30 GRAMS 15 GRAMS... UD PRN PO 06/04/17 20:00 07/04/17 19:59 Glucose (Glucose Chew Tab) 4-8 Tablets 4 Tabl... UD PRN PO 06/04/17 20:00 07/04/17 19:59 Dextrose (Dextrose 50% 50ML Syringe) 25-50ML OF 50% DW IV FOR... UD PRN IV 06/04/17 20:00 07/04/17 19:59 Glucagon (Glucagon Inj) 1 mg UD PRN SQ 06/04/17 20:00 07/04/17 19:59 Piperacillin Sod/ Tazobactam Sod 4.5 gm/Dextrose 120 ml @ 30 mls/hr Q8H IV 06/05/17 00:00 06/15/17 00:00 06/08/17 15:37 30 MLS/HR Piperacillin Sod/ Tazobactam Sod (Consult) 1 ea UD PRN N/A 06/04/17 21:30 07/04/17 21:29 Ketorolac Tromethamine (Toradol Inj) 30 mg Q6H PRN IV 06/05/17 01:00 06/10/17 00:59 06/08/17 13:10 30 MG Miscellaneous Information (Consult Glycemic Management Pharmacy) 1 ea UD PRN N/A 06/05/17 09:48 07/05/17 09:47 Insulin Glargine (Lantus Solostar Pen) 48 units DAILY SC 06/06/17 09:00 07/06/17 08:59 06/08/17 07:18 48 UNITS Linezolid (Zyvox Tab) 600 mg BID PO 06/07/17 12:00 06/17/17 11:59 06/08/17 07:22 600 MG Insulin Aspart (novoLOG ASPART) SLIDING SCALE If C... ACHS SC 06/08/17 12:30 07/08/17 12:29
[2017-06-08 22:54] VITALS: BP 140/83; PULSE 93; TEMP 37.6; O2SAT 91
[2017-06-09 03:16] VITALS: BP 130/84; PULSE 65; TEMP 36.7; O2SAT 94
[2017-06-09 06:40] LABS: HEMATOCRIT 35.7 % (42-52); MEAN CELL VOLUME 89.9 fL (80-100); MEAN CORPUSCULAR HEMOGLOBIN 31.2 pg (25-34); MEAN CORPUSCULAR HGB CONC 34.7 g/dl (32-36); MEAN PLATELET VOLUME 10.8 fL (7.4-10.4); PLATELET COUNT 249 K/uL (130-400); RED BLOOD COUNT 3.97 M/uL (4.7-6.1); WHITE BLOOD COUNT 10.31 K/uL (4.8-10.8)
[2017-06-09 07:18] LABS: BUN/CREATININE RATIO 13.7 (10-20); CALCIUM 8.3 mg/dl (8.5-10.1); CREATININE 1.12 mg/dl (0.60-1.40); POTASSIUM 3.8 mmol/L (3.5-5.1)
[2017-06-09] MEDS: PIPERACILL/TAZOBAC IV 4.5 GM in DEXTROSE 5% 100ML 100 ML IV SCH ×2 (07:28→16:02)
[2017-06-09 07:45] VITALS: BP 123/81; PULSE 74; TEMP 37.2; O2SAT 94
[2017-06-09] MEDS: KETOROLAC TROMETHAMINE 30 MG/ML VIAL IV PRN ×2 (08:08→16:02)
[2017-06-09] MEDS: ENOXAPARIN 40 MG/0.4 ML SYR SQ SCH (09:27)
[2017-06-09] MEDS: LINEZOLID 600 MG TAB PO SCH ×2 (09:27→21:48)
[2017-06-09] MEDS: INSULIN ASPART 100 UNITS/ML 3 ML PEN SC SCH ×4 (09:34→21:59)
[2017-06-09] MEDS: INSULIN GLARGINE SOLOSTAR 100 UNITS/ML 3 ML PEN SC SCH (09:34)
--- NOTE | 2017-06-09 10:50 | Progress Note ---
Subjective Date of Service: Jun 09, 2017. Subjective Pt evaluation today including: conversation w/ patient, physical exam Voiding: no voiding problems POD#1 I & D of scrotum. Drain placed. Purulent material drained from perineal space tracking towards right inguinal area. Necrotic tissue removed and sent for culture. Thus far cx are showing Group B Strep and Coag Neg Staph. Pt is feeling better today. Not feeling as much pressure in the area of the scrotum but still having pain. Minimal drainage. Due for dressing change today. Problem List Medical Problems: (1) Cellulitis Status: Acute (2) Hyperglycemia due to type 2 diabetes mellitus Status: Acute (3) Vertigo Status: Acute (4) Vomiting Status: Acute Review of Systems Respiratory: No cough, No shortness of breath Cardiac: No chest pain Abdomen: + pain Male : No dysuria Skin: + rash All Other Systems: Reviewed and Negative Objective Vital Signs Date Time Temp Pulse Resp B/P (MAP) Pulse Ox O2 Delivery O2 Flow Rate FiO2 06/09/17 07:45 37.2 74 16 123/81 (95) 94 Room Air 06/09/17 03:16 36.7 65 16 130/84 (99) 94 CPAP 06/08/17 23:15 Room Air CPAP 06/08/17 22:54 37.6 93 18 140/83 (102) 91 Room Air 06/08/17 15:15 Room Air CPAP 06/08/17 15:05 36.7 74 18 156/87 (110) 96 Room Air 06/08/17 12:32 36.7 69 18 156/91 (112) 96 Room Air 06/08/17 11:45 96 Nasal Cannula 2.0 06/08/17 11:45 36.9 69 16 145/94 (111) 96 Nasal Cannula 2.0 06/08/17 11:30 65 21 141/88 95 Nasal Cannula 2 06/08/17 11:20 36.5 66 16 144/93 96 Nasal Cannula 2 06/08/17 11:10 64 16 148/98 100 Oxymask 10 06/08/17 11:00 71 20 141/92 98 Oxymask 10 06/08/17 10:53 36.5 72 20 125/92 96 Oxymask 10 Physical Exam General Appearance: no apparent distress Respiratory/Chest: lungs clear Abdomen: soft Neurologic/Psychiatric: alert, oriented x 3 Comments: Scrotal edema. Packing in place. Erythema improved. Drain intact. Laboratory Results Last 24 Hours Test 06/08/17 10:57 06/08/17 16:54 06/08/17 20:35 06/09/17 05:55 Bedside Glucose 135 mg/dl 149 mg/dl 144 mg/dl White Blood Count 10.31 K/uL Red Blood Count 3.97 M/uL Hemoglobin 12.4 g/dL Hematocrit 35.7 % Mean Corpuscular Volume 89.9 fL Mean Corpuscular Hemoglobin 31.2 pg Mean Corpuscular Hemoglobin Concent 34.7 g/dl RDW Standard Deviation 39.8 fL RDW Coefficient of Variation 12.2 % Platelet Count 249 K/uL Mean Platelet Volume 10.8 fL Sodium Level 139 mmol/L Potassium Level 3.8 mmol/L Chloride Level 105 mmol/L Carbon Dioxide Level 26 mmol/L Anion Gap 8.0 mmol/L Blood Urea Nitrogen 15 mg/dl Creatinine 1.12 mg/dl Est Creatinine Clear Calc Drug Dose 116.4 ml/min Estimated GFR () 91.5 Estimated GFR (Non- 78.9 BUN/Creatinine Ratio 13.7 Random Glucose 188 mg/dl Calcium Level 8.3 mg/dl Chemistry Specimen Hemolysis Test 06/09/17 08:15 Bedside Glucose 177 mg/dl Assessment and Plan (1) Cellulitis (2) Diabetes Doing well s/p I&D of scrotum. Necrotic tissue removed. Fluid sent for culture. Still has some edema of scrotum. It is going to take several weeks to settle down. Plan for daily dressing changes with wet 2 inch gauze roll and ABDs by nursing staff. 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 ID to manage abx. Will tentatively plan to remove drain tomorrow if he continues to improve. Wound will heal from inside out with dressing changes. Occasionally, patients need to be taken back to the OR for stages debridements or wound closure. Will continue to follow.
--- NOTE | 2017-06-09 11:46 | Pharmacy Progress Note ---
Glycemic: Assessment & Plan Date of Service Jun 09, 2017. Assessment & Plan ASSESSMENT: * See progress note from 06/05/17 for more background info, in short: * Pt receiving SQ basal bolus insulin regimen for hyperglycemia secondary to baseline DM (outpatient regimen on hold), stress/infection * Patient is currently receiving an average of 110 units of insulin per day * 48 units of basal insulin * 62 units of prandial/correctional insulin * BSGs ranging 125-144 mg/dl over the past 24hrs * Changes needed to insulin regimen: * AM Fasting BSG = 177 mg/dl. This is close to goal range for patient based on inpatient targets and co-morbidities. Therefore Basal insulin will be continue at current dose for the time being. * Post-prandial BSGs are in goal - continue. * Additional notes / comments: * Graciela ChapmanD met with patient/CDE and discussed current outpatient control and A1c of ~12% * Pt willing to make changes when discharged - please see D/C recommendations below and contact pharmacy if any questions PLAN FOR INPATIENT GLYCEMIC CONTROL: * Oral Agents * Continue to hold outpatient oral diabetes medications. * Basal insulin * Lantus 48 units SQ daily * Bolus insulin * NovoLog per scale ACHS or Q6hrs while NPO * Goal Range: Low 120 mg/dL - High 150 mg/dL * Correction Factor 8 mg/dL/unit * Nutritional / Prandial insulin per carb ratio of 1 unit per 3 grams CHO consumed Looking forward to discharge: A1c = 12% patient will need triple therapy vs combination injection therapy Recommend basal insulin, metformin, + {glipizide vs NovoLog} * Basal insulin: Lantus is a tier 2 drug on insurance formulary {no tier 1 basal insulins}. Recommend once daily dose given in the morning and possibly initiating a titration until he can follow up with PCP vs [facility] diabetes clinic. * Dose TBD closer to discharge - currently Lantus 48 units daily looks to be a good option * Metformin: Metformin is a tier 1 drug on insurance formulary. Recommend Metformin XR 500mg PO daily with breakfast. May want to start this after scrotal cellulitis improves as diarrhea may aggravate infection. Dose very conservatively to prevent AE. Typically the XR version of metformin is tolerated better than the IR. * Continue to titrate metformin dosing upwards as recommended. Dosage increases should be made in increments of 500 mg weekly, up to 2,000 mg/day PO, given in divided doses. Doses above 2000 mg/day may be better tolerated if divided and given 3 times per day with meals. Max: 2,550 mg/day PO, in divided doses. * Glipizide: Glipizide is a tier 1 drug on insurance formulary. Recommend 5 mg PO once daily given 30 minutes before breakfast. May titrate by 5mg up to 15mg PO daily vs 10-20 mg PO BIDM. * May consider NovoLog instead of glipizide for prandial coverage. Recommend a fixed dose to be given with the largest meal of the day. * Dosing TBD - Novolog doses have not been consistent * Please note that the plan above was derived based on current level of insulin resistance and hospital stress. These recommendations are appropriate for inpatient admission only. Plan of care upon discharge will need to be reassessed to avoid potential outpatient hypo/hyperglycemia. Thank you.
[2017-06-09] MEDS: HYDROmorphone INJ 2 MG/ML SYR/VIAL IV PRN (13:58)
[2017-06-09 15:00] VITALS: BP 131/84; PULSE 73; TEMP 37.2; O2SAT 94
--- NOTE | 2017-06-09 18:36 | Progress Note ---
Medicine Progress Note Date & Time of Visit: Jun 09, 2017 at ~ 16:00 . Subjective Low-grade temp last night. No fever or sweats today. Less scrotal discomfort. No nausea, vomiting, diarrhea. . Objective Last 8 Hrs Date Time Temp Pulse Resp B/P (MAP) Pulse Ox O2 Delivery O2 Flow Rate FiO2 06/09/17 15:00 37.2 73 16 131/84 (100) 94 Room Air Physical Exam: General- no distress Lungs- clear Heart- RRR Abdomen- + BS, soft, nontender - scrotal erythema/edema; less suprapubic erythema & tenderness; surgical drain right inguinal fold Extremities- no pretibial edema or calf tenderness Neuro- alert . Laboratory Results: Last 24 Hours Test 06/08/17 20:35 06/09/17 05:55 06/09/17 08:15 06/09/17 12:02 Bedside Glucose 144 mg/dl 177 mg/dl 230 mg/dl White Blood Count 10.31 K/uL Red Blood Count 3.97 M/uL Hemoglobin 12.4 g/dL Hematocrit 35.7 % Mean Corpuscular Volume 89.9 fL Mean Corpuscular Hemoglobin 31.2 pg Mean Corpuscular Hemoglobin Concent 34.7 g/dl RDW Standard Deviation 39.8 fL RDW Coefficient of Variation 12.2 % Platelet Count 249 K/uL Mean Platelet Volume 10.8 fL Sodium Level 139 mmol/L Potassium Level 3.8 mmol/L Chloride Level 105 mmol/L Carbon Dioxide Level 26 mmol/L Anion Gap 8.0 mmol/L Blood Urea Nitrogen 15 mg/dl Creatinine 1.12 mg/dl Est Creatinine Clear Calc Drug Dose 116.4 ml/min Estimated GFR () 91.5 Estimated GFR (Non- 78.9 BUN/Creatinine Ratio 13.7 Random Glucose 188 mg/dl Calcium Level 8.3 mg/dl Chemistry Specimen Hemolysis Test 06/09/17 16:48 Bedside Glucose 105 mg/dl Assessment & Plan SCROTAL CELLULITIS / ABSCESS No apparent abscess / gas per CT. Blood cultures negative. Wound culture grew coag neg Staph and group B beta hemolytic Strep. Initially treated with IV vancomycin and piperacillin / tazobactam without improvement. ID consulted. Linezolid started for gram + coverage. Vancomycin discontinued. Urology consulted. I&D performed. Wound culture from I&D 06/08 growing Group B beta hemolytic Strep. Continue IV piperacillin / tazobactam. DM TYPE 2 Poorly controlled. Had tried metformin in past, but did not tolerate it due to GI symptoms. Random blood sugar at time of presentation was 291. Hgb A1C 12. Diabetes Education / Pharmacy consulted. FBS today = 177. Continue Lantus + NovoLog. SLEEP APNEA Continue CPAP. VTE PROPHYLAXIS SQ enoxaparin. Ambulate. DISPOSITION Expected discharge to home. Family Medicine follow-up with Dr. Nayak. . Current Inpatient Medications: Current Inpatient Medications Medications (Trade) Dose Ordered Sig/Ena Route Start Time Stop Time Status Last Admin Dose Admin Enoxaparin Sodium (Lovenox Inj) 40 mg DAILY SQ 06/05/17 09:00 07/05/17 08:59 06/09/17 09:27 40 MG Acetaminophen (Tylenol Tab) 650 mg Q4H PRN PO 06/04/17 20:00 07/04/17 19:59 06/08/17 23:31 650 MG Morphine Sulfate (MoRPHine SULFATE INJ) 2 mg Q3HWA PRN IV 06/04/17 20:00 06/18/17 19:59 06/04/17 22:00 2 MG Glucose (Glucose 40% Gel) 15-30 GRAMS 15 GRAMS... UD PRN PO 06/04/17 20:00 07/04/17 19:59 Glucose (Glucose Chew Tab) 4-8 Tablets 4 Tabl... UD PRN PO 06/04/17 20:00 07/04/17 19:59 Dextrose (Dextrose 50% 50ML Syringe) 25-50ML OF 50% DW IV FOR... UD PRN IV 06/04/17 20:00 07/04/17 19:59 Glucagon (Glucagon Inj) 1 mg UD PRN SQ 06/04/17 20:00 07/04/17 19:59 Piperacillin Sod/ Tazobactam Sod 4.5 gm/Dextrose 120 ml @ 30 mls/hr Q8H IV 06/05/17 00:00 06/15/17 00:00 06/09/17 16:02 30 MLS/HR Piperacillin Sod/ Tazobactam Sod (Consult) 1 ea UD PRN N/A 06/04/17 21:30 07/04/17 21:29 Ketorolac Tromethamine (Toradol Inj) 30 mg Q6H PRN IV 06/05/17 01:00 06/10/17 00:59 06/09/17 16:02 30 MG Miscellaneous Information (Consult Glycemic Management Pharmacy) 1 ea UD PRN N/A 06/05/17 09:48 07/05/17 09:47 Insulin Glargine (Lantus Solostar Pen) 48 units DAILY SC 06/06/17 09:00 07/06/17 08:59 06/09/17 09:34 48 UNITS Linezolid (Zyvox Tab) 600 mg BID PO 06/07/17 12:00 06/17/17 11:59 06/09/17 09:27 600 MG Insulin Aspart (novoLOG ASPART) SLIDING SCALE If C... ACHS SC 06/08/17 12:30 07/08/17 12:29 06/09/17 13:14 19 UNITS Hydromorphone HCl (Dilaudid Inj) 2 mg Q4 PRN IV 06/09/17 11:00 06/23/17 10:59 06/09/17 13:58 2 MG
[2017-06-09 22:57] VITALS: BP 135/81; PULSE 69; TEMP 37; O2SAT 97
[2017-06-10] MEDS: PIPERACILL/TAZOBAC IV 4.5 GM in DEXTROSE 5% 100ML 100 ML IV SCH ×4 (00:25→23:25)
[2017-06-10] MEDS: KETOROLAC TROMETHAMINE 30 MG/ML VIAL IV PRN (00:36)
[2017-06-10 06:18] LABS: HEMATOCRIT 35.4 % (42-52); MEAN CELL VOLUME 88.5 fL (80-100); MEAN CORPUSCULAR HEMOGLOBIN 30.5 pg (25-34); MEAN CORPUSCULAR HGB CONC 34.5 g/dl (32-36); MEAN PLATELET VOLUME 9.9 fL (7.4-10.4); PLATELET COUNT 292 K/uL (130-400); WHITE BLOOD COUNT 10.44 K/uL (4.8-10.8)
[2017-06-10] MEDS: ACETAMINOPHEN 325 MG TAB PO PRN (06:35)
[2017-06-10 06:53] LABS: CREATININE 1.14 mg/dl (0.60-1.40)
[2017-06-10 08:03] VITALS: BP 114/76; PULSE 70; TEMP 37.1; O2SAT 94
[2017-06-10] MEDS: LINEZOLID 600 MG TAB PO SCH ×2 (08:08→20:48)
[2017-06-10] MEDS: INSULIN ASPART 100 UNITS/ML 3 ML PEN SC SCH ×4 (09:21→20:54)
[2017-06-10] MEDS: INSULIN GLARGINE SOLOSTAR 100 UNITS/ML 3 ML PEN SC SCH (09:23)
[2017-06-10] MEDS: ENOXAPARIN 40 MG/0.4 ML SYR SQ SCH (09:23)
[2017-06-10 09:50] VITALS: O2SAT 94
[2017-06-10] MEDS: HYDROmorphone INJ 2 MG/ML SYR/VIAL IV PRN (09:55)
--- NOTE | 2017-06-10 10:11 | Progress Note ---
Subjective Date of Service: Jun 10, 2017. Subjective Pt evaluation today including: conversation w/ patient, conversation w/ family , physical exam, chart review, lab review seen in followup, present, s/p OR this weekend, abscess drained, had dressing change yesterday, feeling much better. wbc improved. changed to zyvox for gbs for anti-toxin effect as isolate was resistant to clinda. afebrile. eating well. no n/v/d/. pain controlled, urinating without difficulty. Asking to go home. all remaining ros reviewed and are negative. Problem List Medical Problems: (1) Cellulitis Status: Acute (2) Hyperglycemia due to type 2 diabetes mellitus Status: Acute (3) Vertigo Status: Acute (4) Vomiting Status: Acute Objective Vital Signs Date Time Temp Pulse Resp B/P (MAP) Pulse Ox O2 Delivery O2 Flow Rate FiO2 06/10/17 09:50 94 Room Air 06/10/17 08:03 37.1 70 24 114/76 (89) 94 Room Air 06/10/17 08:00 Room Air 06/10/17 00:30 Room Air 06/09/17 22:57 37.0 69 18 135/81 (99) 97 Room Air 06/09/17 15:55 Room Air 06/09/17 15:00 37.2 73 16 131/84 (100) 94 Room Air Physical Exam General Appearance: WD/WN, no apparent distress Eyes: normal inspection, EOMI Neck: supple Respiratory/Chest: lungs clear, normal breath sounds, no respiratory distress Cardiovascular: regular rate, rhythm, no edema Abdomen: non tender, soft Extremities: non-tender, no pedal edema Neurologic/Psychiatric: alert, oriented x 3 Skin: normal color, no rash Laboratory Results Item Value Date Time Gram Stain - Final Resulted 06/08/17 1019 Tissue Scrotum Gram Stain - Final Resulted 06/08/17 1017 Drainage-Deep Scrotum Gram Stain - Final Complete 06/04/17 1750 Skin Groin Blood Culture - Final Complete 06/04/17 1745 Blood NO GROWTH Blood Culture - Final Complete 06/04/17 1740 Blood NO GROWTH Last 24 Hours Test 06/09/17 12:02 06/09/17 16:48 06/09/17 20:55 06/10/17 05:58 Bedside Glucose 230 mg/dl 105 mg/dl 183 mg/dl Creatinine 1.14 mg/dl Est Creatinine Clear Calc Drug Dose 114.4 ml/min Estimated GFR () 89.5 Estimated GFR (Non- 77.2 Test 06/10/17 06:02 06/10/17 08:01 White Blood Count 10.44 K/uL Red Blood Count 4.00 M/uL Hemoglobin 12.2 g/dL Hematocrit 35.4 % Mean Corpuscular Volume 88.5 fL Mean Corpuscular Hemoglobin 30.5 pg Mean Corpuscular Hemoglobin Concent 34.5 g/dl RDW Standard Deviation 39.8 fL RDW Coefficient of Variation 12.3 % Platelet Count 292 K/uL Mean Platelet Volume 9.9 fL Bedside Glucose 148 mg/dl Assessment and Plan (1) Scrotal abscess Assessment & Plan: will continue zyvox, hopefully can be d/c home on po abx, 14 more days if insurance agreeable. continue wound care. (2) Leukocytosis
[2017-06-10 11:35] VITALS: BP 149/92; PULSE 58; TEMP 36.6; O2SAT 94
[2017-06-10] MEDS ORDERED: HYDROmorphone INJ 1 MG/ML SYR IV PRN (12:15)
[2017-06-10 12:37] VITALS: BP 133/89; PULSE 58; TEMP 36.4; O2SAT 93
[2017-06-10 15:17] VITALS: BP 131/88; PULSE 67; TEMP 36.9; O2SAT 95
[2017-06-10 16:22] VITALS: BMI 43.5
--- NOTE | 2017-06-10 17:19 | Progress Note ---
Subjective Date of Service: Jun 10, 2017. Subjective Pt evaluation today including: conversation w/ patient, physical exam, chart review, lab review Voiding: no voiding problems Patient with improved pain since surgery but terribly sore with dressing changes. He has met with DM educator and will be starting insulin. Problem List Medical Problems: (1) Cellulitis Status: Acute (2) Hyperglycemia due to type 2 diabetes mellitus Status: Acute (3) Vertigo Status: Acute (4) Vomiting Status: Acute Review of Systems Constitutional: No fever, No chills, No sweats, No fatigue Respiratory: No cough, No shortness of breath Male : No dysuria, No urinary frequency, No incontinence Objective Vital Signs Date Time Temp Pulse Resp B/P (MAP) Pulse Ox O2 Delivery O2 Flow Rate FiO2 06/10/17 15:17 36.9 67 20 131/88 (102) 95 Room Air 06/10/17 12:37 36.4 58 24 133/89 (104) 93 Room Air 06/10/17 11:35 36.6 58 20 149/92 (111) 94 Room Air 06/10/17 09:50 94 Room Air 06/10/17 08:03 37.1 70 24 114/76 (89) 94 Room Air 06/10/17 08:00 Room Air 06/10/17 00:30 Room Air 06/09/17 22:57 37.0 69 18 135/81 (99) 97 Room Air Physical Exam General Appearance: WD/WN, + obese Eyes: normal inspection ENT: hearing grossly normal Extremities: non-tender, normal inspection Comments: - penis buried, very edematous, drea exits skin near external inguinal ring and has some purulent drainage. The scrotum is pink with all skin viable and very tender. edema moderate not severe, open wound base of scrotum 2 inches packed with clean gauze, no odor. Laboratory Results Last 24 Hours Test 06/09/17 20:55 06/10/17 05:58 06/10/17 06:02 06/10/17 08:01 Bedside Glucose 183 mg/dl 148 mg/dl Creatinine 1.14 mg/dl Est Creatinine Clear Calc Drug Dose 114.4 ml/min Estimated GFR () 89.5 Estimated GFR (Non- 77.2 White Blood Count 10.44 K/uL Red Blood Count 4.00 M/uL Hemoglobin 12.2 g/dL Hematocrit 35.4 % Mean Corpuscular Volume 88.5 fL Mean Corpuscular Hemoglobin 30.5 pg Mean Corpuscular Hemoglobin Concent 34.5 g/dl RDW Standard Deviation 39.8 fL RDW Coefficient of Variation 12.3 % Platelet Count 292 K/uL Mean Platelet Volume 9.9 fL Test 06/10/17 11:28 Bedside Glucose 152 mg/dl Assessment and Plan scrotal abscess plan for discharge on oral abt I will need to see him in clinic 2 x per week to monitor wound healing. Will remove drea on . dressing changes with dry kerlex for next 2 days. happy to hear his engagement on treating his diabetes. He understands the high sugars worsened the infection.
[2017-06-10] MEDS: ACETAMINOPHEN 500 MG TAB PO PRN (18:50)
--- NOTE | 2017-06-10 21:47 | Progress Note ---
Medicine Progress Note Date & Time of Visit: Jun 10, 2017 at 11:50 . Subjective Episode of lightheadedness this morning after receiving IV hydromorphone for dressing change. No fever. Less scrotal discomfort. No nausea, vomiting, diarrhea. . Objective Last 8 Hrs Date Time Temp Pulse Resp B/P (MAP) Pulse Ox O2 Delivery O2 Flow Rate FiO2 06/10/17 16:00 Room Air 06/10/17 15:17 36.9 67 20 131/88 (102) 95 Room Air Physical Exam: General- no distress Lungs- clear Heart- RRR Abdomen- + BS, soft, nontender - scrotal erythema/edema; less suprapubic erythema & tenderness; surgical drain right inguinal fold Extremities- no pretibial edema or calf tenderness Neuro- alert, oriented, nonfocal . Laboratory Results: Last 24 Hours Test 06/10/17 05:58 06/10/17 06:02 06/10/17 08:01 06/10/17 11:28 Creatinine 1.14 mg/dl Est Creatinine Clear Calc Drug Dose 114.4 ml/min Estimated GFR () 89.5 Estimated GFR (Non- 77.2 White Blood Count 10.44 K/uL Red Blood Count 4.00 M/uL Hemoglobin 12.2 g/dL Hematocrit 35.4 % Mean Corpuscular Volume 88.5 fL Mean Corpuscular Hemoglobin 30.5 pg Mean Corpuscular Hemoglobin Concent 34.5 g/dl RDW Standard Deviation 39.8 fL RDW Coefficient of Variation 12.3 % Platelet Count 292 K/uL Mean Platelet Volume 9.9 fL Bedside Glucose 148 mg/dl 152 mg/dl Test 06/10/17 17:13 06/10/17 20:14 Bedside Glucose 157 mg/dl 177 mg/dl Assessment & Plan SCROTAL CELLULITIS / ABSCESS No apparent abscess / gas per CT. Blood cultures negative. Wound culture grew coag neg Staph and group B beta hemolytic Strep. Initially treated with IV vancomycin and piperacillin / tazobactam without improvement. ID consulted. Linezolid started for gram + coverage. Vancomycin discontinued. Urology consulted. I&D performed 08/08/16. Wound culture from I&D 06/08 growing Group B beta hemolytic Strep. Continue linezolid and IV piperacillin / tazobactam. DM TYPE 2 Poorly controlled. Had tried metformin in past, but did not tolerate it due to GI symptoms. Random blood sugar at time of presentation was 291. Hgb A1C 12. Diabetes Education / Pharmacy consulted. FBS today = 148. Continue Lantus + NovoLog. SLEEP APNEA Continue CPAP. VTE PROPHYLAXIS SQ enoxaparin. Ambulate. DISPOSITION Expected discharge to home. Family Medicine follow-up with Dr. Nayak. Urology follow-up with Dr. Meadows. . Current Inpatient Medications: Current Inpatient Medications Medications (Trade) Dose Ordered Sig/Ena Route Start Time Stop Time Status Last Admin Dose Admin Enoxaparin Sodium (Lovenox Inj) 40 mg DAILY SQ 06/05/17 09:00 07/05/17 08:59 06/10/17 09:23 40 MG Glucose (Glucose 40% Gel) 15-30 GRAMS 15 GRAMS... UD PRN PO 06/04/17 20:00 07/04/17 19:59 Glucose (Glucose Chew Tab) 4-8 Tablets 4 Tabl... UD PRN PO 06/04/17 20:00 07/04/17 19:59 Dextrose (Dextrose 50% 50ML Syringe) 25-50ML OF 50% DW IV FOR... UD PRN IV 06/04/17 20:00 07/04/17 19:59 Glucagon (Glucagon Inj) 1 mg UD PRN SQ 06/04/17 20:00 07/04/17 19:59 Piperacillin Sod/ Tazobactam Sod 4.5 gm/Dextrose 120 ml @ 30 mls/hr Q8H IV 06/05/17 00:00 06/15/17 00:00 06/10/17 16:02 30 MLS/HR Piperacillin Sod/ Tazobactam Sod (Consult) 1 ea UD PRN N/A 06/04/17 21:30 07/04/17 21:29 Miscellaneous Information (Consult Glycemic Management Pharmacy) 1 ea UD PRN N/A 06/05/17 09:48 07/05/17 09:47 Insulin Glargine (Lantus Solostar Pen) 48 units DAILY SC 06/06/17 09:00 07/06/17 08:59 06/10/17 09:23 48 UNITS Linezolid (Zyvox Tab) 600 mg BID PO 06/07/17 12:00 06/17/17 11:59 06/10/17 20:48 600 MG Insulin Aspart (novoLOG ASPART) SLIDING SCALE If C... ACHS SC 06/08/17 12:30 07/08/17 12:29 06/10/17 20:54 4 UNITS Hydromorphone HCl (Dilaudid Inj) 1 mg Q4H PRN IV 06/10/17 12:15 06/24/17 12:14 Tramadol HCl (Ultram Tab) 100 mg Q6 PRN PO 06/10/17 12:15 07/10/17 12:14 Acetaminophen (Tylenol Tab) 1,000 mg Q8 PRN PO 06/10/17 12:15 07/10/17 12:14 06/10/17 18:50 1,000 MG
[2017-06-10] MEDS: TRAMADOL HCL 50 MG TAB PO PRN (23:02)
[2017-06-10 23:10] VITALS: BP 128/85; PULSE 71; TEMP 37; O2SAT 94
[2017-06-11 08:08] VITALS: BP 125/76; PULSE 72; TEMP 37.1; O2SAT 94
[2017-06-11] MEDS: PIPERACILL/TAZOBAC IV 4.5 GM in DEXTROSE 5% 100ML 100 ML IV SCH ×3 (08:44→23:41)
[2017-06-11] MEDS: LINEZOLID 600 MG TAB PO SCH ×2 (08:44→20:44)
[2017-06-11] MEDS: ENOXAPARIN 40 MG/0.4 ML SYR SQ SCH (09:33)
[2017-06-11] MEDS: INSULIN ASPART 100 UNITS/ML 3 ML PEN SC SCH ×4 (09:39→20:52)
[2017-06-11] MEDS: INSULIN GLARGINE SOLOSTAR 100 UNITS/ML 3 ML PEN SC SCH (09:40)
[2017-06-11] MEDS: TRAMADOL HCL 50 MG TAB PO PRN (10:09)
--- NOTE | 2017-06-11 14:30 | Progress Note ---
Subjective Date of Service: Jun 11, 2017. Subjective Pt evaluation today including: conversation w/ patient, conversation w/ family , physical exam, chart review, lab review pt feeling better, no pain, drain remains in place. no f/c. no abd pain, tolerating abx. all wound cultures with gbs. No overnight events. no n/v/d/abd pain. all remaining ros reviewed and are negative Problem List Medical Problems: (1) Cellulitis Status: Acute (2) Hyperglycemia due to type 2 diabetes mellitus Status: Acute (3) Vertigo Status: Acute (4) Vomiting Status: Acute Objective Vital Signs Date Time Temp Pulse Resp B/P (MAP) Pulse Ox O2 Delivery O2 Flow Rate FiO2 06/11/17 08:08 37.1 72 18 125/76 (92) 94 Room Air 06/11/17 07:55 Room Air 06/10/17 23:30 Room Air 06/10/17 23:10 37.0 71 18 128/85 (99) 94 Room Air 06/10/17 16:00 Room Air 06/10/17 15:17 36.9 67 20 131/88 (102) 95 Room Air Physical Exam General Appearance: WD/WN, no apparent distress Eyes: normal inspection, EOMI Neck: supple Respiratory/Chest: lungs clear, normal breath sounds, no respiratory distress Cardiovascular: regular rate, rhythm, no edema Abdomen: non tender, soft Extremities: non-tender, no pedal edema Neurologic/Psychiatric: alert, oriented x 3 Skin: normal color Laboratory Results Item Value Date Time Gram Stain - Final Complete 06/04/17 1750 Skin Groin Gram Stain - Final Resulted 06/08/17 1017 Drainage-Deep Scrotum Gram Stain - Final Resulted 06/08/17 1019 Tissue Scrotum Blood Culture - Final Complete 06/04/17 1745 Blood NO GROWTH Blood Culture - Final Complete 06/04/17 1740 Blood NO GROWTH Last 24 Hours Test 06/10/17 17:13 06/10/17 20:14 06/11/17 08:04 Bedside Glucose 157 mg/dl 177 mg/dl 103 mg/dl Assessment and Plan (1) Scrotal abscess Assessment & Plan: will continue zyvox, hopefully can be d/c home on po abx, 14 more days if insurance agreeable. continue wound care. (2) Leukocytosis
[2017-06-11 16:24] VITALS: BP 138/91; PULSE 54; TEMP 36.6; O2SAT 96
[2017-06-11] MEDS: ACETAMINOPHEN 500 MG TAB PO PRN (16:46)
--- NOTE | 2017-06-11 20:06 | Progress Note ---
Medicine Progress Note Date & Time of Visit: Jun 11, 2017 at 18:20 . Subjective No fever. Having pain with dressing changes. No nausea, vomiting, diarrhea. . Objective Last 8 Hrs Date Time Temp Pulse Resp B/P (MAP) Pulse Ox O2 Delivery O2 Flow Rate FiO2 06/11/17 16:24 36.6 54 18 138/91 (107) 96 Room Air Physical Exam: General- no distress Lungs- Heart- Abdomen- - scrotal erythema/edema; less suprapubic erythema & tenderness; surgical drain right inguinal fold Extremities- Neuro- alert, oriented . Laboratory Results: Last 24 Hours Test 06/10/17 20:14 06/11/17 08:04 06/11/17 12:08 06/11/17 17:09 Bedside Glucose 177 mg/dl 103 mg/dl 135 mg/dl 85 mg/dl Assessment & Plan SCROTAL CELLULITIS / ABSCESS No apparent abscess / gas per CT. Blood cultures negative. Wound culture grew coag neg Staph and group B beta hemolytic Strep. Initially treated with IV vancomycin and piperacillin / tazobactam without improvement. ID consulted. Linezolid started for gram + coverage. Vancomycin discontinued. Urology consulted. I&D performed 08/08/16. Wound culture from I&D 06/08 growing Group B beta hemolytic Strep. Continue linezolid and IV piperacillin / tazobactam. Anticipated discharge on oral linezolid. Need to work out logistics of wound care and Urology f/u. DM TYPE 2 Poorly controlled. Had tried metformin in past, but did not tolerate it due to GI symptoms. Random blood sugar at time of presentation was 291. Hgb A1C 12. Diabetes Education / Pharmacy consulted. FBS today = 103. Continue Lantus + NovoLog. SLEEP APNEA Continue CPAP. VTE PROPHYLAXIS SQ enoxaparin. Ambulate. DISPOSITION Expected discharge to home. Family Medicine follow-up with Dr. Nayak. Urology follow-up . Current Inpatient Medications: Current Inpatient Medications Medications (Trade) Dose Ordered Sig/Ena Route Start Time Stop Time Status Last Admin Dose Admin Enoxaparin Sodium (Lovenox Inj) 40 mg DAILY SQ 06/05/17 09:00 07/05/17 08:59 06/11/17 09:33 40 MG Glucose (Glucose 40% Gel) 15-30 GRAMS 15 GRAMS... UD PRN PO 06/04/17 20:00 07/04/17 19:59 Glucose (Glucose Chew Tab) 4-8 Tablets 4 Tabl... UD PRN PO 06/04/17 20:00 07/04/17 19:59 Dextrose (Dextrose 50% 50ML Syringe) 25-50ML OF 50% DW IV FOR... UD PRN IV 06/04/17 20:00 07/04/17 19:59 Glucagon (Glucagon Inj) 1 mg UD PRN SQ 06/04/17 20:00 07/04/17 19:59 Piperacillin Sod/ Tazobactam Sod 4.5 gm/Dextrose 120 ml @ 30 mls/hr Q8H IV 06/05/17 00:00 06/15/17 00:00 06/11/17 16:46 30 MLS/HR Piperacillin Sod/ Tazobactam Sod (Consult) 1 ea UD PRN N/A 06/04/17 21:30 07/04/17 21:29 Miscellaneous Information (Consult Glycemic Management Pharmacy) 1 ea UD PRN N/A 06/05/17 09:48 07/05/17 09:47 Insulin Glargine (Lantus Solostar Pen) 48 units DAILY SC 06/06/17 09:00 07/06/17 08:59 06/11/17 09:40 48 UNITS Linezolid (Zyvox Tab) 600 mg BID PO 06/07/17 12:00 06/17/17 11:59 06/11/17 08:44 600 MG Insulin Aspart (novoLOG ASPART) SLIDING SCALE If C... ACHS SC 06/08/17 12:30 07/08/17 12:29 06/11/17 18:14 11 UNITS Hydromorphone HCl (Dilaudid Inj) 1 mg Q4H PRN IV 06/10/17 12:15 06/24/17 12:14 Tramadol HCl (Ultram Tab) 100 mg Q6 PRN PO 06/10/17 12:15 07/10/17 12:14 06/11/17 10:09 100 MG Acetaminophen (Tylenol Tab) 1,000 mg Q8 PRN PO 06/10/17 12:15 07/10/17 12:14 06/11/17 16:46 1,000 MG
[2017-06-11 22:50] VITALS: BP 149/94; PULSE 64; TEMP 37.1; O2SAT 95
[2017-06-12 07:53] VITALS: BP 120/66; PULSE 67; TEMP 36.8; O2SAT 91
[2017-06-12] MEDS: PIPERACILL/TAZOBAC IV 4.5 GM in DEXTROSE 5% 100ML 100 ML IV SCH ×3 (08:31→23:51)
[2017-06-12] MEDS: TRAMADOL HCL 50 MG TAB PO PRN (09:23)
[2017-06-12] MEDS: LINEZOLID 600 MG TAB PO SCH ×2 (09:24→21:20)
[2017-06-12] MEDS: ENOXAPARIN 40 MG/0.4 ML SYR SQ SCH (09:24)
[2017-06-12] MEDS: INSULIN ASPART 100 UNITS/ML 3 ML PEN SC SCH ×4 (09:30→21:00)
[2017-06-12] MEDS: INSULIN GLARGINE SOLOSTAR 100 UNITS/ML 3 ML PEN SC SCH (09:34)
--- NOTE | 2017-06-12 10:31 | Urology Consultation ---
History General Date of Service: Jun 12, 2017. Chief Complaint: scrotal cellulitis and abscess Primary Care Physician: German Nayak M.D. (MEDICAL) Pt seen a urologist before?: Yes (Dr. Almazan and Dr. Meadows) If yes, why?: scrotal cellulitis and abscess History of Present Illness 46 yo male admitted with hyperglycemia and scrotal cellulitis and abscess. He is POD #4 s/p I&D of scrotal abscess by Dr. Almazan. [facility] [place] [facility] [place] asked to see this pt as the pt has requested a second urology opinion. Wound cultures growing group B beta strep and coag neg staph. ID has been consulted. Pt denies pain this morning. He denies previous scrotal issues in the past. He does note his glucose has around 300-400 for a while prior to admission. Laboratory Last 24 Hours Test 06/11/17 12:08 06/11/17 17:09 06/11/17 20:37 06/12/17 00:57 Bedside Glucose 135 mg/dl 85 mg/dl 110 mg/dl 95 mg/dl Problem List Medical Problems: (1) Cellulitis Status: Acute (2) Hyperglycemia due to type 2 diabetes mellitus Status: Acute (3) Vertigo Status: Acute (4) Vomiting Status: Acute Past History diabetes, other (morbid obesity, OCD, Tourette syndrome) Past Surgical History: other (scrotal I7D) Family History No pertinent family history Social History Hx Tobacco Use In Past Year?: No Smoking: non-smoker Marital status: Housing status: lives with family History of MDRO No Allergies Coded Allergies: No Known Allergies (Unverified , 06/04/17) Medications Home Medications: Home Meds and Scripts Medications Dose Route/Sig Max Daily Dose Days Date Category Dose Instructions Glucophage (Metformin Hcl) 500 Mg Tab 1 Tab PO BID 06/04/17 Reported Viagra (Sildenafil Citrate) 100 Mg Tab 100 Mg PO UD 06/04/17 Reported take 1/2 tab to 1 tablet by mouth 1 to 4 hr before intercourse. No more than 1 dose in 24 hrs. Inpatient Medications: Current Inpatient Medications Medications (Trade) Dose Ordered Sig/Ena Route Start Time Stop Time Status Last Admin Dose Admin Enoxaparin Sodium (Lovenox Inj) 40 mg DAILY SQ 06/05/17 09:00 07/05/17 08:59 06/12/17 09:24 40 MG Glucose (Glucose 40% Gel) 15-30 GRAMS 15 GRAMS... UD PRN PO 06/04/17 20:00 07/04/17 19:59 Glucose (Glucose Chew Tab) 4-8 Tablets 4 Tabl... UD PRN PO 06/04/17 20:00 07/04/17 19:59 Dextrose (Dextrose 50% 50ML Syringe) 25-50ML OF 50% DW IV FOR... UD PRN IV 06/04/17 20:00 07/04/17 19:59 Glucagon (Glucagon Inj) 1 mg UD PRN SQ 06/04/17 20:00 07/04/17 19:59 Piperacillin Sod/ Tazobactam Sod 4.5 gm/Dextrose 120 ml @ 30 mls/hr Q8H IV 06/05/17 00:00 06/15/17 00:00 06/12/17 08:31 30 MLS/HR Piperacillin Sod/ Tazobactam Sod (Consult) 1 ea UD PRN N/A 06/04/17 21:30 07/04/17 21:29 Miscellaneous Information (Consult Glycemic Management Pharmacy) 1 UD PRN N/A 06/05/17 09:48 07/05/17 09:47 Insulin Glargine (Lantus Solostar Pen) 48 units DAILY SC 06/06/17 09:00 07/06/17 08:59 06/12/17 09:34 48 UNITS Linezolid (Zyvox Tab) 600 mg BID PO 06/07/17 12:00 06/17/17 11:59 06/12/17 09:24 600 MG Insulin Aspart (novoLOG ASPART) SLIDING SCALE If C... ACHS SC 06/08/17 12:30 07/08/17 12:29 06/12/17 09:30 16 UNITS Hydromorphone HCl (Dilaudid Inj) 1 mg Q4H PRN IV 06/10/17 12:15 06/24/17 12:14 Tramadol HCl (Ultram Tab) 100 mg Q6 PRN PO 06/10/17 12:15 07/10/17 12:14 06/12/17 09:23 100 MG Acetaminophen (Tylenol Tab) 1,000 mg Q8 PRN PO 06/10/17 12:15 07/10/17 12:14 06/11/17 16:46 1,000 MG Review of Systems Review of Systems Constitutional: No fever, No chills Eyes: No double vision Neurological: No dizzy Endocrine: No excessive thirst Gastrointestinal: No abdominal pain, No nausea, No vomiting Cardiovascular: No chest pain Respiratory: No shortness of breath Skin: No rash Musculoskeletal: No back pain Male : No painful urination, No blood in urine Physical Exam Vital Signs: Vital Signs Past 12 Hours Date Time Temp Pulse Resp B/P (MAP) Pulse Ox O2 Delivery O2 Flow Rate FiO2 06/12/17 07:53 36.8 67 18 120/66 (84) 91 Room Air 06/11/17 23:40 Room Air 06/11/17 22:50 37.1 64 18 149/94 (112) 95 Room Air Physical Exam: General Appearance: no apparent distress, + obese Eyes: bilateral eyes normal inspection ENT: hearing grossly normal Neck: no JVD Respiratory/Chest: no respiratory distress, no accessory muscle use Cardiovascular: no JVD Genitourinary - Male: Penis: pertinent finding (buried phallus) Scrotum: pertinent finding (edematous) Extremities: normal inspection Neurologic/Psychiatric: alert, normal mood/affect, oriented x 3 Skin: normal color Additional Comments: Edematous scrotum on exam today. Kerlix packing noted in wound under scrotum, and a large drea drain noted to extend along the groin through 2 incisions. Assessment & Plan Assessment & Plan POD #4 s/p I&D of scrotal wound. AFVSS. Will accept care for this pt. Recommend management of abx per Dr. Paris. Will arrange for the pt to be seen by the wound clinic to change packing and make recommendations for daily home packing changes. Possible d/c of Drea drain tomorrow. Thanks for the consult. Will continue to follow along with primary service.
--- NOTE | 2017-06-12 13:00 | Pharmacy Progress Note ---
Glycemic: Assessment & Plan Date of Service Jun 12, 2017. Assessment & Plan The patient is currently receiving 80-90 units of insulin per day. BSGs ranging 85 - 135 mg/dl over the past 24hrs. * Basal insulin: Lantus 48 units every 24 hours * Correctional Insulin: Novolog Correction per scale ACHS Goal Range: Low 120 mg/dL - High 150 mg/dL Correction Factor: 8 mg/dL/unit * Prandial insulin: Per carb ratio of 1 unit per 3 grams CHO consumed BSGs continue to improve, no changes needed to inpatient regimen at this time. Pharmacy will continue to monitor patient daily and write orders per [facility] inpatient glycemic control protocol. Thanks. Discharge recommendations noted in pharmacy note from 06/05. Please refer to this.
[2017-06-12 15:30] VITALS: O2SAT 91
[2017-06-12 15:59] VITALS: BP 134/84; PULSE 74; TEMP 36.8; O2SAT 91
--- NOTE | 2017-06-12 22:07 | Progress Note ---
Medicine Progress Note Date & Time of Visit: Jun 12, 2017 at 19:00 . Subjective No fever. Scrotal pain improved. No chest pain, cough, SOB. No nausea, vomiting, diarrhea. . Objective Last 8 Hrs Date Time Temp Pulse Resp B/P (MAP) Pulse Ox O2 Delivery O2 Flow Rate FiO2 06/12/17 15:59 36.8 74 18 134/84 (101) 91 Room Air 06/12/17 15:30 91 Room Air Physical Exam: General- no distress Lungs- clear Heart- RRR Abdomen- + BS, soft, nontender - scrotal erythema/edema; less suprapubic erythema & tenderness; surgical drain right inguinal fold Extremities- no pretibial edema or calf tenderness Neuro- alert, oriented . Laboratory Results: Last 24 Hours Test 06/12/17 00:57 06/12/17 08:12 06/12/17 12:12 06/12/17 16:55 Bedside Glucose 95 mg/dl 125 mg/dl 76 mg/dl Test 06/12/17 20:50 Bedside Glucose 127 mg/dl Assessment & Plan SCROTAL CELLULITIS / ABSCESS No apparent abscess / gas per CT at time of admission.. Blood cultures negative. Wound culture grew coag neg Staph and group B beta hemolytic Strep. Initially treated with IV vancomycin and piperacillin / tazobactam without improvement. ID consulted. Linezolid started for gram + coverage. Vancomycin discontinued. Urology consulted. I&D performed 08/08/16. Wound culture from I&D 06/08 growing Group B beta hemolytic Strep. Continue linezolid and IV piperacillin / tazobactam. Anticipated discharge on oral linezolid. Urology care transferred to [facility] per patient's request. Urology consulted Wound Care team. Removal of right inguinal drain per Urology. Wound-Vac under consideration. DM TYPE 2 Poorly controlled. Had tried metformin in past, but did not tolerate it due to GI symptoms. Random blood sugar at time of presentation was 291. Hgb A1C 12. Diabetes Education / Pharmacy consulted. FBS today = 125. Continue Lantus + NovoLog. Anticipate discharge to home with Lantus + NovoLog sliding scale without carb counting. SLEEP APNEA Continue CPAP. VTE PROPHYLAXIS SQ enoxaparin. Ambulate. DISPOSITION Expected discharge to home with home health nursing. Family Medicine follow-up with Dr. Nayak. Urology follow-up with [facility]. Wound care per [facility]. . Consultants: ID Urology Wound Care . Current Inpatient Medications: Current Inpatient Medications Medications (Trade) Dose Ordered Sig/Ena Route Start Time Stop Time Status Last Admin Dose Admin Enoxaparin Sodium (Lovenox Inj) 40 mg DAILY SQ 06/05/17 09:00 07/05/17 08:59 06/12/17 09:24 40 MG Glucose (Glucose 40% Gel) 15-30 GRAMS 15 GRAMS... UD PRN PO 06/04/17 20:00 07/04/17 19:59 Glucose (Glucose Chew Tab) 4-8 Tablets 4 Tabl... UD PRN PO 06/04/17 20:00 07/04/17 19:59 Dextrose (Dextrose 50% 50ML Syringe) 25-50ML OF 50% DW IV FOR... UD PRN IV 06/04/17 20:00 07/04/17 19:59 Glucagon (Glucagon Inj) 1 mg UD PRN SQ 06/04/17 20:00 07/04/17 19:59 Piperacillin Sod/ Tazobactam Sod 4.5 gm/Dextrose 120 ml @ 30 mls/hr Q8H IV 06/05/17 00:00 06/15/17 00:00 06/12/17 15:46 30 MLS/HR Piperacillin Sod/ Tazobactam Sod (Consult) 1 ea UD PRN N/A 06/04/17 21:30 07/04/17 21:29 Miscellaneous Information (Consult Glycemic Management Pharmacy) 1 UD PRN N/A 06/05/17 09:48 07/05/17 09:47 Insulin Glargine (Lantus Solostar Pen) 48 units DAILY SC 06/06/17 09:00 07/06/17 08:59 06/12/17 09:34 48 UNITS Linezolid (Zyvox Tab) 600 mg BID PO 06/07/17 12:00 06/17/17 11:59 06/12/17 21:20 600 MG Insulin Aspart (novoLOG ASPART) SLIDING SCALE If C... ACHS SC 06/08/17 12:30 07/08/17 12:29 06/12/17 18:18 15 UNITS Hydromorphone HCl (Dilaudid Inj) 1 mg Q4H PRN IV 06/10/17 12:15 06/24/17 12:14 Tramadol HCl (Ultram Tab) 100 mg Q6 PRN PO 06/10/17 12:15 07/10/17 12:14 06/12/17 09:23 100 MG Acetaminophen (Tylenol Tab) 1,000 mg Q8 PRN PO 06/10/17 12:15 07/10/17 12:14 06/11/17 16:46 1,000 MG
[2017-06-12 23:05] VITALS: BP 133/68; PULSE 86; TEMP 37; O2SAT 93
[2017-06-13 07:15] VITALS: BP 125/88; PULSE 68; TEMP 37.2; O2SAT 95
--- NOTE | 2017-06-13 07:30 | Wound Clinic H&P ---
History & Physical Wound Clinic Date of Service: Jun 12, 2017. Complaint: non healing postoperative wound scrotum Primary Care Physician: German Nayak M.D. (MEDICAL) History of Present Illness Me Nguyen is 46-year-old male currently at [facility] status post incision and drainage of a scrotal abscess seen in consultation at the request of urology regarding wound healing. Patient was admitted for scrotal cellulitis and abscess on 06/04/2017 and underwent incision and drainage of the abscess on 06/08/17. Patient is being followed by infectious diseases and is currently on Zyvox. Pt has iodoform gauze packing and drain in place. Pt is currently complaining of minor pain and swelling. Pt denies fever chills nausea or vomiting. Pt is diabetic and last HgbA1C was 11.5 on 05/12/17. Medical History (1) Scrotal abscess (2) Diabetes Surgical History Hx Abdominal Surgery: No Hx Cardiac Surgery: No Hx Urinary Tract Surgery: No Hx Orthopedic: No Social History Occupation: employed Smoking Status: Never Smoker Current Medications Scheduled Metformin Hcl (Glucophage), 1 TAB PO BID Sildenafil Citrate (Viagra), 100 MG PO UD Allergies Coded Allergies: No Known Allergies (Unverified , 06/04/17) Review of Systems 10 systems were reviewed in their entirety and positive findings were noted in HPI. Physical Exam Vital Signs: Last Vital Signs Documentation Date Time Temp Pulse Resp B/P (MAP) Pulse Ox O2 Delivery O2 Flow Rate FiO2 06/13/17 07:15 37.2 68 16 125/88 (100) 95 Room Air 06/08/17 11:45 2.0 Current Pain Level: 3.0 General: The patient is sitting in the exam room in no distress. Alert, cooperative and appropriate to all questions. Chest: equal rise and fall with respirations. Abdomen: Soft, No masses, Bowel Sound present : edmatous scrotum noted. Drain sutured in place. Abscess site measures3 cm x5 cm x1.5. Mild slough present. Neurological: Alert and oriented x3. No focal deficits. Skin: No rashes, papules, vesicles, excoriations Assessment 1.: Nonhealing surgical wound Plan No debridement was required. Iodoform packing was removed Zoomaal replaced this. Did speak with Jus Lei. Neurology drinking to be removed either or 06/14/2017 tilter we would follow Ring removal with placement of the wound VAC. Patient will have wound VAC placed on 06/14/2017 with home health changing the VAC on 06/17/2017. Patient will be followed up in the wound clinic on 06/19 at 8 AM patient is agreeable with this plan
[2017-06-13] MEDS: PIPERACILL/TAZOBAC IV 4.5 GM in DEXTROSE 5% 100ML 100 ML IV SCH ×2 (07:57→16:04)
[2017-06-13] MEDS: ENOXAPARIN 40 MG/0.4 ML SYR SQ SCH (07:58)
[2017-06-13] MEDS: LINEZOLID 600 MG TAB PO SCH ×2 (07:58→21:03)
[2017-06-13 08:10] LABS: HEMATOCRIT 36.4 % (42-52); MEAN CELL VOLUME 90.3 fL (80-100); MEAN CORPUSCULAR HEMOGLOBIN 30.8 pg (25-34); MEAN CORPUSCULAR HGB CONC 34.1 g/dl (32-36); MEAN PLATELET VOLUME 9.6 fL (7.4-10.4); PLATELET COUNT 319 K/uL (130-400); RED BLOOD COUNT 4.03 M/uL (4.7-6.1); WHITE BLOOD COUNT 10.22 K/uL (4.8-10.8)
[2017-06-13 08:42] LABS: CREATININE 1.35 mg/dl (0.60-1.40)
--- NOTE | 2017-06-13 09:08 | Progress Note ---
Subjective Date of Service: Jun 13, 2017. (Brianna Lei CRNP) Subjective Pt evaluation today including: conversation w/ patient, chart review, lab review Voiding: no voiding problems 46 yo male s/p scrotal I&D. Pt denies pain this morning. C/o itching of the area. ID managing abx. Wound care managing wound packing. (Brianna Lei CRNP) Problem List Medical Problems: (1) Cellulitis Status: Acute (2) Hyperglycemia due to type 2 diabetes mellitus Status: Acute (3) Vertigo Status: Acute (4) Vomiting Status: Acute (Brianna Lei CRNP) Review of Systems Constitutional: No fever, No chills Respiratory: No shortness of breath Cardiac: No chest pain Abdomen: No pain, No vomiting Male : No dysuria, No hematuria Heme: No abnormal bleeding/bruising (Brianna Lei CRNP) Objective Vital Signs Date Time Temp Pulse Resp B/P (MAP) Pulse Ox O2 Delivery O2 Flow Rate FiO2 06/13/17 07:15 37.2 68 16 125/88 (100) 95 Room Air 06/12/17 23:55 Room Air 06/12/17 23:05 37.0 86 16 133/68 (89) 93 Room Air 06/12/17 15:59 36.8 74 18 134/84 (101) 91 Room Air 06/12/17 15:30 91 Room Air (Brianna Lei CRNP) Physical Exam General Appearance: no apparent distress, + obese Eyes: normal inspection ENT: hearing grossly normal Neck: no JVD Respiratory/Chest: no respiratory distress, no accessory muscle use Cardiovascular: no JVD Extremities: normal inspection Neurologic/Psychiatric: alert, normal mood/affect, oriented x 3 Skin: normal color Comments: Saturated packing noted in scrotal wound. [place] remains in place with slight drainage. (Brianna Lei CRNP) Laboratory Results Last 24 Hours Test 06/12/17 12:12 06/12/17 16:55 06/12/17 20:50 06/13/17 07:46 Bedside Glucose 144 mg/dl 76 mg/dl 127 mg/dl White Blood Count 10.22 K/uL Red Blood Count 4.03 M/uL Hemoglobin 12.4 g/dL Hematocrit 36.4 % Mean Corpuscular Volume 90.3 fL Mean Corpuscular Hemoglobin 30.8 pg Mean Corpuscular Hemoglobin Concent 34.1 g/dl RDW Standard Deviation 40.8 fL RDW Coefficient of Variation 12.3 % Platelet Count 319 K/uL Mean Platelet Volume 9.6 fL Creatinine 1.35 mg/dl Est Creatinine Clear Calc Drug Dose 96.6 ml/min Estimated GFR () 73.0 Estimated GFR (Non- 63.0 (Brianna Lei CRNP) Assessment and Plan POD #5 s/p scrotal I&D. AFVSS. Continue abx per ID recommendations. Continue packing changes per wound care. Current plan is to remove [place] drain tomorrow and place wound vac. Wound care to arrange outpatient management with the pt and his . Will plan for f/u in the office with Dr. Calloway in 2 weeks. Will continue to follow along with primary service. Discharge planning: home (Brianna Lei CRNP) A/P 46 yo male with tracking perineal abscess seen with NATALIE. Inpatient charts and notes reviewed. Afebrile, leukocytosis resolved, covered with broad spectrum antibiotics Obese, NAD S1S2 Soft, NT. Inc - [place] tracked through R inguinal subQ region, I imagine due to tracking of abscess. Inc with mild eschar and purulence, no evidence of tracking cellulitis. A/P 46 yo male s/p I&D of large perineal and R inguinal abscess Well drained and debrided. Will remove [place] tomorrow. Activity limitations reviewed. Outpatient management and wound care involvement reviewed. Discharge planning: home (Rai Calloway MD, Urology)
[2017-06-13] MEDS: INSULIN ASPART 100 UNITS/ML 3 ML PEN SC SCH ×2 (09:28→19:14)
[2017-06-13] MEDS: INSULIN GLARGINE SOLOSTAR 100 UNITS/ML 3 ML PEN SC SCH (09:29)
--- NOTE | 2017-06-13 14:34 | Pharmacy Progress Note ---
Glycemic: Assessment & Plan Date of Service Jun 13, 2017. Assessment & Plan The patient is currently receiving 80-100 units of insulin per day. BSGs ranging 76 - 144 mg/dl over the past 24hrs. Nurse called pharmacy last night to report patient refusing HS insulin the last two nights. To help patient compliance, discontinue HS check and continue Novolog AC only. * Basal insulin: Lantus 48 units every 24 hours * Correctional Insulin: Novolog Correction per scale AC only - remove HS check Goal Range: Low 120 mg/dL - High 150 mg/dL Correction Factor: 8 mg/dL/unit * Prandial insulin: Per carb ratio of 1 unit per 3 grams CHO consumed Pharmacy will continue to monitor patient daily and write orders per [facility] inpatient glycemic control protocol. Thanks. Discharge recommendations noted in pharmacy note from 06/05. Please refer to this.
[2017-06-13 15:00] VITALS: BP 143/99; PULSE 62; TEMP 36.9; O2SAT 95
--- NOTE | 2017-06-13 15:08 | Progress Note ---
Subjective Date of Service: Jun 13, 2017. Subjective for drain removal tomorrow, vac placement with plans to follow in wound center post d/c. afebrile, tolerating abx. blood cultures negative and final. All wound culture with gbs. has insurance coverage for zyvox upon d/c. Problem List Medical Problems: (1) Cellulitis Status: Acute (2) Hyperglycemia due to type 2 diabetes mellitus Status: Acute (3) Vertigo Status: Acute (4) Vomiting Status: Acute Objective Vital Signs Date Time Temp Pulse Resp B/P (MAP) Pulse Ox O2 Delivery O2 Flow Rate FiO2 06/13/17 08:30 Room Air 06/13/17 07:15 37.2 68 16 125/88 (100) 95 Room Air 06/12/17 23:55 Room Air 06/12/17 23:05 37.0 86 16 133/68 (89) 93 Room Air 06/12/17 15:59 36.8 74 18 134/84 (101) 91 Room Air 06/12/17 15:30 91 Room Air Laboratory Results Last 24 Hours Test 06/12/17 16:55 06/12/17 20:50 06/13/17 07:46 06/13/17 07:58 Bedside Glucose 76 mg/dl 127 mg/dl 111 mg/dl White Blood Count 10.22 K/uL Red Blood Count 4.03 M/uL Hemoglobin 12.4 g/dL Hematocrit 36.4 % Mean Corpuscular Volume 90.3 fL Mean Corpuscular Hemoglobin 30.8 pg Mean Corpuscular Hemoglobin Concent 34.1 g/dl RDW Standard Deviation 40.8 fL RDW Coefficient of Variation 12.3 % Platelet Count 319 K/uL Mean Platelet Volume 9.6 fL Creatinine 1.35 mg/dl Est Creatinine Clear Calc Drug Dose 96.6 ml/min Estimated GFR () 73.0 Estimated GFR (Non- 63.0 Test 06/13/17 11:59 Bedside Glucose 165 mg/dl Assessment and Plan (1) Scrotal abscess Assessment & Plan: will continue zyvox, hopefully can be d/c home on po abx, 14 more days post d/c continue wound care. Can follow with ID in wound center post d/c as well. for vac tomorrow (2) Leukocytosis Discharge planning: home
[2017-06-13] MEDS: TRAMADOL HCL 50 MG TAB PO PRN (16:19)
--- NOTE | 2017-06-13 17:29 | Progress Note ---
Medicine Progress Note Date & Time of Visit: Jun 13, 2017 at 15:51. Subjective Denies fevers or chills for several days Pt reports feeling well overall Drainage is still present around the wound and drea drain in place. Pt is tolerating PO and denies constipation or diarrhea. Objective Last 8 Hrs Date Time Temp Pulse Resp B/P (MAP) Pulse Ox O2 Delivery O2 Flow Rate FiO2 06/13/17 15:00 36.9 62 20 143/99 (114) 95 Room Air 06/13/17 08:30 Room Air Physical Exam: GEN: obese, in no acute distress, alert and appropriate HEENT: NC/AT, normal sclerae, MMM CARDIO: reg rate, S1/2 heard without m/g/r LUNGS: CTA bilaterally, no crackles, rales or wheezes, good diaphragmatic excursion ABD: soft, non-tender, non-distended, no rebound or guarding, +BS : scrotum is suspended in dressing-stil wtih swelling and erythema present, drain in place, drainage present with odor EXTREMITY: RP and DP palpable 2+ bilat, no LE swelling or edema, extremities are warm and well-perfused NEURO: CN 2-12 grossly intact MUSC: 5/5 strength throughout, no gross focal deficits SKIN: warm and dry Laboratory Results: 06/13/17 07:46 06/09/17 05:55 06/13/17 07:46 Test 06/04/17 17:40 06/04/17 17:53 06/04/17 18:20 06/05/17 05:49 Total Bilirubin 0.8 mg/dl (0.2-1) Direct Bilirubin mg/dl (0-0.2) Aspartate Amino Transf (AST/SGOT) 12 U/L (15-37) Alanine Aminotransferase (ALT/SGPT) 22 U/L (12-78) Alkaline Phosphatase 93 U/L (45-117) Total Protein 7.7 gm/dl (6.4-8.2) Albumin 3.2 gm/dl (3.4-5.0) Lipase 115 U/L (73-393) Bedside Hemoglobin 14.3 g/dl (14.0-18.0) Bedside Hematocrit 42 % (42-52) Bedside Sodium 136 mEq/L (135-144) Bedside Potassium 4.2 mEq/L (3.3-5.0) Bedside Chloride 98 mEq/L (101-112) Bedside Total CO2 27 mEq/l (24-31) Bedside Blood Urea Nitrogen 16 mg/dl (7-18) Bedside Creatinine 0.9 mg/dl (0.6-1.3) Bedside Glucose (other) 287 mg/dl (70-99) Bedside Ionized Calcium (Flaco) 1.12 mmol/l (1.12-1.32) Urine Color YELLOW Urine Appearance CLEAR (CLEAR) Urine pH 5.0 (4.5-7.5) Urine Specific [place] > 1.045 (1.000-1.030) Urine Protein 1+ (NEG) Urine Glucose (UA) 3+ (NEG) Urine Ketones 1+ (NEG) Urine Occult Blood NEG (NEG) Urine Nitrite NEG (NEG) Urine Bilirubin NEG (NEG) Urine Urobilinogen NEG (NEG) Urine Leukocyte Esterase NEG (NEG) Urine WBC (Auto) 1-5 /hpf (0-5) Urine RBC (Auto) 0-4 /hpf (0-4) Urine Hyaline Casts (Auto) 1-5 /lpf (0-5) Urine Epithelial Cells (Auto) 5-10 /lpf (0-5) Urine Bacteria (Auto) NEG (NEG) Prothrombin Time 10.5 SECONDS (9.0-12.0) Prothromb Time International Ratio 1.0 (0.9-1.1) Activated Partial Thromboplast Time 30.8 SECONDS (21.0-31.0) Partial Thromboplastin Ratio 1.2 Estimated Average Glucose 298 mg/dl Hemoglobin A1c 12.0 % (4.5-5.6) Test 06/06/17 11:55 06/07/17 03:30 06/09/17 05:55 06/13/17 07:46 Immature Granulocyte % (Auto) 0.5 % White Blood Count 10.92 K/uL (4.8-10.8) Red Blood Count 4.11 M/uL (4.7-6.1) 4.03 M/uL (4.7-6.1) Hemoglobin 12.6 g/dL (14.0-18.0) Hematocrit 35.6 % (42-52) Mean Corpuscular Volume 86.6 fL (80-100) 90.3 fL (80-100) Mean Corpuscular Hemoglobin 30.7 pg (25-34) 30.8 pg (25-34) Mean Corpuscular Hemoglobin Concent 35.4 g/dl (32-36) 34.1 g/dl (32-36) Platelet Count 215 K/uL (130-400) Mean Platelet Volume 10.4 fL (7.4-10.4) 9.6 fL (7.4-10.4) Neutrophils (%) (Auto) 76.5 % Lymphocytes (%) (Auto) 13.5 % Monocytes (%) (Auto) 9.0 % Eosinophils (%) (Auto) 0.4 % Basophils (%) (Auto) 0.1 % Neutrophils # (Auto) 8.36 K/uL (1.4-6.5) Lymphocytes # (Auto) 1.47 K/uL (1.2-3.4) Monocytes # (Auto) 0.98 K/uL (0.11-0.59) Eosinophils # (Auto) 0.04 K/uL (0-0.5) Basophils # (Auto) 0.01 K/uL (0-0.2) Immature Granulocyte # (Auto) 0.06 K/uL (0.00-0.02) Vancomycin Level Trough 17.1 mcg/ml (SEE COMMENT) Anion Gap 8.0 mmol/L (3-11) BUN/Creatinine Ratio 13.7 (10-20) Calcium Level 8.3 mg/dl (8.5-10.1) Chemistry Specimen Hemolysis RDW Standard Deviation 40.8 fL (36.4-46.3) RDW Coefficient of Variation 12.3 % (11.5-14.5) Est Creatinine Clear Calc Drug Dose 96.6 ml/min Estimated GFR () 73.0 Estimated GFR (Non- 63.0 Test 06/13/17 11:59 Bedside Glucose 165 mg/dl (70-99) Date/Time Source Procedure Growth Status 06/04/17 17:45 Blood Blood Culture - Final NO GROWTH Complete 06/08/17 10:19 Tissue Scrotum Gram Stain - Final Resulted 06/08/17 10:19 Bacterial Culture - Preliminary Group B Beta Strep Resulted Last 24 Hours Test 06/12/17 16:55 06/12/17 20:50 06/13/17 07:46 06/13/17 07:58 Bedside Glucose 76 mg/dl 127 mg/dl 111 mg/dl White Blood Count 10.22 K/uL Red Blood Count 4.03 M/uL Hemoglobin 12.4 g/dL Hematocrit 36.4 % Mean Corpuscular Volume 90.3 fL Mean Corpuscular Hemoglobin 30.8 pg Mean Corpuscular Hemoglobin Concent 34.1 g/dl RDW Standard Deviation 40.8 fL RDW Coefficient of Variation 12.3 % Platelet Count 319 K/uL Mean Platelet Volume 9.6 fL Creatinine 1.35 mg/dl Est Creatinine Clear Calc Drug Dose 96.6 ml/min Estimated GFR () 73.0 Estimated GFR (Non- 63.0 Test 06/13/17 11:59 Bedside Glucose 165 mg/dl Assessment & Plan 46 yo M who presented with a scrotal cellulitis which became a deeper perianal abscess. I&D in the OR was performed on 08/08/16 with placement of a [place] drain and wound culture grew Group B strep. Linezolid and Zosyn were continued. Urology care was transferred to [facility] [place] [place] per patient's request. Urology then consulted the Wound Care provider for assistance who is planning to place a wound vac in the morning prior to discharge. 1. Perianal abscess-s/p I&D with Urology and drain placed. Plan for removal in the morning and placement of a wound vac. Details are still somewhat fuzzy to the patient regarding what he wants to do moving forward. 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 Defer to Urology and WC. ID consulted and recommends continued care with PO Zyvox going home. Zosyn was discontinued. 2. DMII-at goal as inpatient. Cont Lantus and Novolog with this on discharge with straight dose of Novolog ordered with meals. 3. PHAN-cont CPAP 4. Obesity DVT prophylaxis: Lovenox. Full Code Dispo-likely DC to home with Home Health tomorrow. Still have to iron out some details of post-operative care. DO [facility] Discharge planning: home Consultants: [facility] . Current Inpatient Medications: Current Inpatient Medications Medications (Trade) Dose Ordered Sig/Ena Route Start Time Stop Time Status Last Admin Dose Admin Enoxaparin Sodium (Lovenox Inj) 40 mg DAILY SQ 06/05/17 09:00 07/05/17 08:59 11/16/17 07:58 40 MG Glucose (Glucose 40% Gel) 15-30 GRAMS 15 GRAMS... UD PRN PO 06/04/17 20:00 07/04/17 19:59 Glucose (Glucose Chew Tab) 4-8 Tablets 4 Tabl... UD PRN PO 06/04/17 20:00 07/04/17 19:59 Dextrose (Dextrose 50% 50ML Syringe) 25-50ML OF 50% DW IV FOR... UD PRN IV 06/04/17 20:00 07/04/17 19:59 Glucagon (Glucagon Inj) 1 mg UD PRN SQ 06/04/17 20:00 07/04/17 19:59 Piperacillin Sod/ Tazobactam Sod 4.5 gm/Dextrose 120 ml @ 30 mls/hr Q8H IV 06/05/17 00:00 06/15/17 00:00 06/13/17 07:57 30 MLS/HR Piperacillin Sod/ Tazobactam Sod (Consult) 1 UD PRN N/A 06/04/17 21:30 07/04/17 21:29 Miscellaneous Information (Consult Glycemic Management Pharmacy) 1 UD PRN N/A 06/05/17 09:48 07/05/17 09:47 Insulin Glargine (Lantus Solostar Pen) 48 units DAILY SC 06/06/17 09:00 07/06/17 08:59 06/13/17 09:29 48 UNITS Linezolid (Zyvox Tab) 600 mg BID PO 06/07/17 12:00 06/17/17 11:59 06/13/17 07:58 600 MG Hydromorphone HCl (Dilaudid Inj) 1 mg Q4H PRN IV 06/10/17 12:15 06/24/17 12:14 Tramadol HCl (Ultram Tab) 100 mg Q6 PRN PO 06/10/17 12:15 07/10/17 12:14 06/12/17 09:23 100 MG Acetaminophen (Tylenol Tab) 1,000 mg Q8 PRN PO 06/10/17 12:15 07/10/17 12:14 06/11/17 16:46 1,000 MG Insulin Aspart (novoLOG ASPART) SLIDING SCALE If C... AC FL 06/13/17 17:15 07/13/17 17:14
[2017-06-13 23:31] VITALS: BP 132/84; PULSE 71; TEMP 37.2; O2SAT 97
[2017-06-14 07:18] LABS: MEAN CELL VOLUME 91.2 fL (80-100); MEAN CORPUSCULAR HEMOGLOBIN 30.6 pg (25-34); MEAN CORPUSCULAR HGB CONC 33.5 g/dl (32-36); MEAN PLATELET VOLUME 9.8 fL (7.4-10.4); PLATELET COUNT 327 K/uL (130-400); RED BLOOD COUNT 3.73 M/uL (4.7-6.1); WHITE BLOOD COUNT 10.24 K/uL (4.8-10.8)
[2017-06-14 07:29] LABS: BUN/CREATININE RATIO 8.6 (10-20); CALCIUM 8.7 mg/dl (8.5-10.1); CREATININE 1.27 mg/dl (0.60-1.40); POTASSIUM 4.3 mmol/L (3.5-5.1)
[2017-06-14 07:47] VITALS: BP 124/88; PULSE 68; TEMP 36.7; O2SAT 97
--- NOTE | 2017-06-14 08:20 | Progress Note ---
Subjective Date of Service: Jun 14, 2017. Subjective Pt evaluation today including: conversation w/ patient, chart review, lab review Voiding: no voiding problems 46 yo male s/p scrotal I&D. Pt doing well this morning. Denies pain. Problem List Medical Problems: (1) Cellulitis Status: Acute (2) Hyperglycemia due to type 2 diabetes mellitus Status: Acute (3) Vertigo Status: Acute (4) Vomiting Status: Acute Review of Systems Constitutional: No fever, No chills Respiratory: No shortness of breath Cardiac: No chest pain Abdomen: No pain, No nausea, No vomiting Male : No hematuria Heme: No abnormal bleeding/bruising Objective Vital Signs Date Time Temp Pulse Resp B/P (MAP) Pulse Ox O2 Delivery O2 Flow Rate FiO2 06/14/17 07:47 36.7 68 18 124/88 (100) 97 Room Air 06/14/17 00:20 Room Air 06/13/17 23:31 37.2 71 16 132/84 (100) 97 Room Air 06/13/17 15:45 Room Air 06/13/17 15:00 36.9 62 20 143/99 (114) 95 Room Air 06/13/17 08:30 Room Air Physical Exam General Appearance: no apparent distress, + obese Eyes: normal inspection ENT: hearing grossly normal Neck: no JVD Respiratory/Chest: no respiratory distress, no accessory muscle use Cardiovascular: no JVD Extremities: normal inspection Neurologic/Psychiatric: alert, normal mood/affect, oriented x 3 Skin: normal color Comments: [place] to groin incisions. Packing to scrotal wound. Laboratory Results Last 24 Hours Test 06/13/17 11:59 06/13/17 17:55 06/13/17 20:54 06/14/17 06:27 Bedside Glucose 165 mg/dl 94 mg/dl 185 mg/dl White Blood Count 10.24 K/uL Red Blood Count 3.73 M/uL Hemoglobin 11.4 g/dL Hematocrit 34.0 % Mean Corpuscular Volume 91.2 fL Mean Corpuscular Hemoglobin 30.6 pg Mean Corpuscular Hemoglobin Concent 33.5 g/dl RDW Standard Deviation 41.0 fL RDW Coefficient of Variation 12.4 % Platelet Count 327 K/uL Mean Platelet Volume 9.8 fL Sodium Level 142 mmol/L Potassium Level 4.3 mmol/L Chloride Level 106 mmol/L Carbon Dioxide Level 27 mmol/L Anion Gap 9.0 mmol/L Blood Urea Nitrogen 11 mg/dl Creatinine 1.27 mg/dl Est Creatinine Clear Calc Drug Dose 102.6 ml/min Estimated GFR () 78.6 Estimated GFR (Non- 67.8 BUN/Creatinine Ratio 8.6 Random Glucose 97 mg/dl Calcium Level 8.7 mg/dl Assessment and Plan POD #6 s/p scrotal I&D. AFVSS. Continue abx per ID recommendations. [place] drain removed today by Dr. Calloway. Wound care to place wound vac. F/u with wound care as directed. Will plan for f/u in the office with Dr. Calloway in 2 weeks. No further management at this time. Pt OK for d/c home from [facility]. Recall PRN issues. Discharge planning: home
[2017-06-14] MEDS: LINEZOLID 600 MG TAB PO SCH ×2 (08:26→18:14)
[2017-06-14] MEDS: ENOXAPARIN 40 MG/0.4 ML SYR SQ SCH (08:27)
[2017-06-14] MEDS: INSULIN ASPART 100 UNITS/ML 3 ML PEN SC SCH ×3 (10:02→18:16)
[2017-06-14] MEDS: INSULIN GLARGINE SOLOSTAR 100 UNITS/ML 3 ML PEN SC SCH (10:03)
--- NOTE | 2017-06-14 10:30 | Progress Note ---
Subjective Date of Service: Jun 14, 2017. Subjective Pt evaluation today including: conversation w/ patient, conversation w/ family , physical exam, chart review, lab review pt seen in followup, feeling better. tolerating zyvox. drain out, for vac later today with d/c home. no abd pain, eating well. no n/v/d. no pain. no f/c remaining ros reviewed and are negative. Problem List Medical Problems: (1) Cellulitis Status: Acute (2) Hyperglycemia due to type 2 diabetes mellitus Status: Acute (3) Vertigo Status: Acute (4) Vomiting Status: Acute Objective Vital Signs Date Time Temp Pulse Resp B/P (MAP) Pulse Ox O2 Delivery O2 Flow Rate FiO2 06/14/17 07:47 36.7 68 18 124/88 (100) 97 Room Air 06/14/17 00:20 Room Air 06/13/17 23:31 37.2 71 16 132/84 (100) 97 Room Air 06/13/17 15:45 Room Air 06/13/17 15:00 36.9 62 20 143/99 (114) 95 Room Air Physical Exam General Appearance: WD/WN, no apparent distress Eyes: normal inspection, EOMI Neck: supple Respiratory/Chest: lungs clear, normal breath sounds, no respiratory distress Cardiovascular: regular rate, rhythm, no edema Abdomen: non tender, soft Extremities: non-tender, no pedal edema Neurologic/Psychiatric: alert, oriented x 3 Skin: normal color, no rash Laboratory Results Item Value Date Time Gram Stain - Final Complete 06/04/17 1750 Skin Groin Gram Stain - Final Resulted 06/08/17 1017 Drainage-Deep Scrotum Gram Stain - Final Resulted 06/08/17 1019 Tissue Scrotum Blood Culture - Final Complete 06/04/17 1745 Blood NO GROWTH Blood Culture - Final Complete 06/04/17 1740 Blood NO GROWTH Gram Stain - Final Resulted 06/08/17 1019 Tissue Scrotum Last 24 Hours Test 06/13/17 11:59 06/13/17 17:55 06/13/17 20:54 06/14/17 06:27 Bedside Glucose 165 mg/dl 94 mg/dl 185 mg/dl White Blood Count 10.24 K/uL Red Blood Count 3.73 M/uL Hemoglobin 11.4 g/dL Hematocrit 34.0 % Mean Corpuscular Volume 91.2 fL Mean Corpuscular Hemoglobin 30.6 pg Mean Corpuscular Hemoglobin Concent 33.5 g/dl RDW Standard Deviation 41.0 fL RDW Coefficient of Variation 12.4 % Platelet Count 327 K/uL Mean Platelet Volume 9.8 fL Sodium Level 142 mmol/L Potassium Level 4.3 mmol/L Chloride Level 106 mmol/L Carbon Dioxide Level 27 mmol/L Anion Gap 9.0 mmol/L Blood Urea Nitrogen 11 mg/dl Creatinine 1.27 mg/dl Est Creatinine Clear Calc Drug Dose 102.6 ml/min Estimated GFR () 78.6 Estimated GFR (Non- 67.8 BUN/Creatinine Ratio 8.6 Random Glucose 97 mg/dl Calcium Level 8.7 mg/dl Test 06/14/17 08:07 Bedside Glucose 99 mg/dl Assessment and Plan (1) Scrotal abscess Assessment & Plan: continue zyvox po bid x 14 days post d/c. plan to follow in wound center post d/c. can follow with ID post d/c at wound center as well. ok for d/c from ID standpoint when otherwise stable. (2) Leukocytosis Discharge planning: home
--- NOTE | 2017-06-14 13:54 | Pharmacy Progress Note ---
Glycemic Control Progress Note Date of Service Jun 14, 2017. Scope Glycemic Pharmacist consulted for glycemic control to write orders per [facility] inpatient glycemic control protocol. Objective Accuchecks BSG (last 24hrs): Test 06/13/17 17:55 06/13/17 20:54 06/14/17 06:27 06/14/17 08:07 Bedside Glucose 94 mg/dl (70-99) 185 mg/dl (70-99) 99 mg/dl (70-99) Random Glucose 97 mg/dl (70-99) HbA1c: Test 06/05/17 05:49 Hemoglobin A1c 12.0 % (4.5-5.6) H Recent Pertinent Medications Outpatient Anti-diabetic Regimen: * Metformin 500mg PO BIDM --> doesnt take d/t GI side effects The patient is currently receiving: * Basal insulin: Lantus 48 units SQ daily in the morning * Correctional Insulin: Novolog Correction per scale ACHS Goal Range: Low 120 mg/dL - High 150 mg/dL Correction Factor: 8 mg/dL/unit * Prandial insulin: Per carb ratio of 1 unit per 3 grams CHO consumed * Oral Agents: None Risk Factors for Insulin Resistance: * Infection * Diet * Obesity Outpatient Anti-Diabetic Meds N/A, not taking any antidiabetic medications currently Assessment & Plan ASSESSMENT: * 46yo T2DM male with significantly high A1c --> will need insulin at discharge * The patient is currently receiving 90-100 units of insulin per day with adequate control * BSGs ranging 94 - 165 mg/dl over the past 24hrs * BSGs are adequately controlled on current regimen, but post-prandial BSGs are trending downwards. Will loosen CR slightly to prevent hypo PLAN FOR INPATIENT GLYCEMIC CONTROL: * Basal insulin: No change needed * Lantus 48 units SQ daily * Bolus insulin: loosen parameters to prevent hypo * NovoLog per scale AC only {pt refusing HS dosing} * Goal Range: Low 120 mg/dL - High 150 mg/dL {slightly higher range d/t elevated A1c, pt may feel hypo at otherwise normal BSG} * Correction Factor: 9 mg/dL/unit * Nutritional / Prandial insulin per carb ratio of 1 unit per 4 grams CHO consumed Looking forward to discharge: A1c = 12% patient will need triple therapy vs combination injection therapy Recommend basal insulin, metformin, + {glipizide vs NovoLog} * Basal insulin: Lantus is a tier 2 drug on insurance formulary {no tier 1 basal insulins}. Recommend once daily dose given in the morning and possibly initiating a titration until he can [facility]. * Lantus 48 units SQ daily in the morning * Metformin: Metformin is a tier 1 drug on insurance formulary. Recommend Metformin XR 500mg PO daily with breakfast. May want to start this after scrotal cellulitis improves as diarrhea may aggravate infection. Dose very conservatively to prevent AE. Typically the XR version of metformin is tolerated better than the IR. * Continue to titrate metformin dosing upwards as recommended. Dosage increases should be made in increments of 500 mg weekly, up to 2,000 mg/day PO, given in divided doses. Doses above 2000 mg/day may be better tolerated if divided and given 3 times per day with meals. Max: 2,550 mg/day PO, in divided doses. * Glipizide: Glipizide is a tier 1 drug on insurance formulary. Recommend 5 mg PO once daily given 30 minutes before breakfast. May titrate by 5mg up to 15mg PO daily vs 10-20 mg PO BIDM. * May consider NovoLog instead of glipizide for prandial coverage. Recommend a fixed dose to be given with the largest meal of the day. * May consider NovoLog 20 units with the largest meals of the day * Please note that the plan above was derived based on current level of insulin resistance and hospital stress. These recommendations are appropriate for inpatient admission only. Plan of care upon discharge will need to be reassessed to avoid potential outpatient hypo/hyperglycemia. Thank you.
[2017-06-14 15:04] VITALS: BP 170/80; PULSE 64; TEMP 36.9; O2SAT 97
[2017-06-14] MEDS ORDERED: METFTAB PO (16:03)
[2017-06-14] MEDS ORDERED: INSU32MI13 SQ (16:03)
[2017-06-14] MEDS ORDERED: INSDGIPEN SC (16:03)
[2017-06-14] MEDS ORDERED: ULT50X PO (16:03)
[2017-06-14] MEDS ORDERED: LINE1TAB2 PO (16:03)
[2017-06-14 16:12] VITALS: BP 141/80
--- NOTE | 2017-06-14 16:18 | Discharge Summary ---
Discharge Summary Date of Service Jun 14, 2017. Discharge Summary Admission Date: Jun 04, 2017 at 19:54 Discharge Date: Jun 14, 2017 Discharge Disposition: Home with services Principal Diagnosis: Scrotal abscess s/p I&D with wound vac placement. DMII PHAN on CPAP Obesity Procedures: Scrotal abscess s/p I&D with wound vac placement. Vaccinations: Flu Consultations: ID Urology Wound Care . Pending Studies/Follow-Up: see instructions below. Medication Reconciliation New Medications: Insulin Aspart (Novolog Flexpen) 100 Units/Ml Inj 10 UNITS SQ TIDM for 30 Days, #5 PEN 1 Refill Inject 10 units subcutaneously 10-15 minutes prior to eating a meal. Do not take if you skip a meal. Insulin Pen Needle (Bd Pen Needle/Archana/Ultra) 1 Mis Mis BOX SQ BID, #1 1 Refill Insulin Glargine (Lantus Solostar) 100 Unit/Ml Inj 48 UNITS SC QAM for 30 Days, #5 PEN Linezolid (Linezolid) 600 Mg Tab 600 MG PO BID for 14 Days, #28 TAB Tramadol HCl (Tramadol HCl) 50 Mg Tab 50 MG PO Q6 PRN for moderate-severe pain for 10 Days, #30 TAB Continued Medications: Sildenafil Citrate (Viagra) 100 Mg Tab 100 MG PO UD, TAB take 1/2 tab to 1 tablet by mouth 1 to 4 hr before intercourse. No more than 1 dose in 24 hrs. Discontinued Medications: Metformin Hcl (Glucophage) 500 Mg Tab 1 TAB PO BID, TAB 1 Refill Admission Information HPI (per Admitting provider): 46 yo with PMH of DM Type 2, obesity was sent from [employer] for cellulitis in the scrotum presents to the Emergency Room with complaints of worsening right groin/ scrotum pain starting last night. Pt said that it started as a small red lump in his right inguinal area. He said that he tried to pop it because he thought he was an ingrown hair. He said 24 hrs later, he said that things got worst. He said that the area was tender, erythematous and swelling, then spreading in the scrotum area. He said that the pain in the right inguinal area is about 7/10. He said that his scrotum area is mildly tender associated with redness. He said that he developed a fever and chills. He said that he had been taking ibuprofen and Tylenol with no relief. He said that he noticed his urine has an odor. Denies any discharge, urinary retention or bladder loss, no nausea, diarrhea. Pt is DM and his last hba1c was 11.5 on . He said that he has not been taking his metformin in the past few months due to GI side effect (diarrhea). Physical Exam (per Admitting): General Appearance: WD/WN, no apparent distress Head: normocephalic, atraumatic Eyes: PERRL, EOMI, sclerae normal ENT: hearing grossly normal Neck: no adenopathy, no JVD, trachea midline Respiratory/Chest: lungs clear, normal breath sounds, no respiratory distress, no accessory muscle use Cardiovascular: no edema, no JVD, no murmur Abdomen/GI: normal bowel sounds, non tender Genitourinary - Male: no urethral discharge, + pertinent finding (scrotum erythema, swelling with right side tenderness, right scrotal area induration, Open lesion to the left side of the scrotal area, no drainage) Back: no CVA tenderness Extremities/Musculoskelatal: no calf tenderness, no pedal edema Neurologic/Psych: no motor/sensory deficits, alert, oriented x 3 Skin: warm/dry, no rash Hospital Course 46 yo M who presented with a scrotal cellulitis which became a deeper abscess that was tracking into his groin. I&D in the OR was performed on 08/08/16 with placement of a [place] drain and wound culture grew Group B strep and Actinomycetes. Linezolid and Zosyn were continued and ultimately switched to Linezolid PO per ID. Urology care was transferred to [facility] per patient's request. Urology then consulted the Wound Care provider for assistance who placed a wound vac and set up outpatient Home Health and wound care. He was also found to have uncontrolled diabetes on arrival with a HbA1C of 12. He reports being intolerant of Metformin in the past. Initially he did agree to trying the metformin XR again, however, he preferred Lantus and Novolog which was what he was sent home on. On day of discharge he was afebrile and hemodynamically stable and was tolerating PO without issue. He still had an enlarged scrotum on exam with a wound vac in place and other than obesity, physical exam was unremarkable. He was sent home in stable condition with close PCP follow-up to titrate insulin as needed. He was asked to keep a written log of his blood sugars and bring them to his medical visits. He verbalized understanding with intent to comply. Total time spent on discharge = 60 minutes This includes examination of the patient, discharge planning, medication reconciliation, and communication with other providers. Discharge Instructions [facility] [address] [place] [address] Discharge Medical Patient Name: Mesfin Nguyen Unit Number: [id number] Date of : 1970 Patient Status: Admitted Inpatient Attending Doctor: Mirian Ordoñez DO DI: Medical v4 Discharge Instructions Date of Service Jun 14, 2017. Admission Reason for Admission: Cellulitis Discharge Discharge Diagnosis / Problem: scrotal/perianal abscess s/p I&D and wound vac placement. Discharge Goals Goal(s): Prevent Disease Progression Activity Recommendations Activity Limitations: per Instructions/Follow-up section . Instructions / Follow-Up Instructions / Follow-Up Please continue all medications as instructed. Please follow-up with Wound Care, Infectious Disease and Urology providers through your wound care appointments as instructed. (Urology- Dr. Calloway in 2 weeks) Home Health was provided for you at discharge to assist with wound vac maintenance. You were started on insulin at discharge and will need to take your blood sugars every morning prior to eating anything. Goal fasting blood sugar is < 126. Additionally you should check your blood sugar two hours after the largest meal of the day. Goal blood sugar at this time will be <180. If not at these goals, your primary care provider (PCP) will adjust your medications. You have a follow-up appointment with Dr. Mayer on 06/19 @ 7:45am for followup from this hospitalization. Please keep a log of your blood sugars and bring this with you to every appointment. You will need to have non-fasting bloodwork on or after Saturday, 06/21 to monitor you while on the [employer]. It was a pleasure taking care of you! Call if you have any questions or problems. You can reach a [facility] hospitalist on duty at [facility] 24 hours a day by calling [phone]. Take care of yourself. DO [facility] Hospitalist Current Hospital Diet Patient's current hospital diet: Diabetes Type 2 Diet Discharge Diet Recommended Diet: Diabetes Type 2 Diet Procedures Procedures Performed: Incision and Drainage of Scrotum-Evely[place] drain placement (06/08) with transition to wound vac on 06/14 Pending Studies Studies pending at discharge: no Laboratory Results Hemoglobin A1c Test 06/05/17 05:49 Range/Units Estimated Average Glucose 298 mg/dl Hemoglobin A1c 12.0 H 4.5-5.6 % Medical Emergencies . Who to Call and When: Medical Emergencies: If at any time you feel your situation is an emergency, please call 911 immediately. . Non-Emergent Contact Non-Emergency issues call your: Primary Care Provider . . "Provider Documentation" section prepared by Mirian Ordoñez. . VTE Core Measure Inpt VTE Proph given/why not?: Enoxaparin (Lovenox)SQ [place] Drug Monitoring Program Search Results: patient reviewed within database, no issues identified
[2017-06-14 16:40] VITALS: BP 141/80; PULSE 64; TEMP 36.9; O2SAT 97
[2017-06-14] MEDS ORDERED: NVLGIPEN SQ (20:48)
--- NOTE | 2017-06-18 13:12 | EDITING REQUIRED CODING QUERY ---
PRESENT ON ADMISSION QUERY To promote full compliance with coding requirements relating to pateint care, physician participation is requested in all cases of remote medical coder uncertainty. Please assist us with the question(s) below: Please place an X within the parenthesis (x). The following diagnosis(es) listed in this patient's medical record require physician assistance to determine if they were present on admission (POA) or not. Please advise for each diagnosis whether it was present on admission, not present on admission, or if it was clinically undetermined. 1. Deeper Abscess, Perianal Abscess (documented towards the end of the record and Discharge Summary). ( ) Present On Admission (x ) Not Present On Admission ( ) Clinically Undetermined It is possible as I noted an area of induration on the R scrotal area on my physical exam, however, there was no area of fluctutation and CT revealed no abscess initially. Thank you Lindsey Bardales *Definition of the present on admission (POA)-Present on admission is defined as present at the time the order for inpatient admission occurs. Conditions that develop during an outpatient encounter prior to a written order for inpatient admission (including emergency department, observation, or outpatient surgery) are considered present on admission.
--- NOTE | 2017-06-18 13:18 | EDITING REQUIRED CODING QUERY ---
CODING QUERY To promote full compliance with coding requirements relating to patient care, provider participation is requested in all cases of debone supervisor uncertainty. Please assist us with the question(s) below: Coding Question(s): There is documentation of Cellulitis of the Scrotum and documentation of Diabetes Uncontrolled. The Progress Note by Dr. Paola Meadows on 06/10 mentions that he understands the high blood sugars worsened the infection. Please clarify below, regarding the Cellulitis of the Scrotum and relationship, if any, to the Diabetes. (x ) The Diabetes was likely related to the Cellulitis of the Scrotum ( ) The Diabetes was not likely related to the Cellulitis of the Scrotum Physician's Response(s): high blood sugars create a situation of poor wound healing. Thank you Lindsey Bardales Principal Diagnosis: "_that condition established after study, to be chiefly responsible for occasioning the admission of the patient to the hospital for care." Co-Existing Principal Diagnosis: "_when two or more diagnoses equally meet the criteria for principal diagnosis as determined by the circumstances of admission, diagnostic work up, and/or therapy provided, and the Alphabetic Index, Tabular List, or another coding guideline does not provide sequencing direction, any one of the diagnoses may be sequenced first." "When the physician has documented what appears to be a current diagnosis in the body of the record, but has not included the diagnosis in the final diagnostic statement, the physician should be asked whether the diagnosis should be added." (Source [facility] 2 QTR90. p3-4)
[2017-06-20 15:20] VITALS: Ht 177.8 cm; Wt 137.5 kg
[2017-07-01] MEDS ORDERED: LEVO1TAB34 PO (13:13)
== END 2017-06-14 19:31 | disposition home health service (06) | DRG 638 ==
LOC: C.EDB 16:14 → C.MSW 19:54 → ENRESERV 20:05
PROVIDERS: ADMIT Internal Medicine; ATTEND Hospitalist
PROC: 0VB50ZX Excision of Scrotum, Open Approach, Diagnostic (ICD-10-PCS; principal; 2017-06-08 07:30)
PROC: 0J9B0ZX Drainage of Perineum Subcutaneous Tissue and Fascia, Open Approach, Diagnostic (ICD-10-PCS; principal; 2017-06-08 07:30)
DX: E11.69 Type 2 diabetes mellitus with other specified complication (principal); K61.0 Anal abscess; Z68.41 Body mass index [BMI] 40.0-44.9, adult; N49.2 Inflammatory disorders of scrotum; E11.65 Type 2 diabetes mellitus with hyperglycemia; B95.1 Streptococcus, group B, as the cause of diseases classified elsewhere; B95.7 Other staphylococcus as the cause of diseases classified elsewhere; Z16.29 Resistance to other single specified antibiotic; G47.33 Obstructive sleep apnea (adult) (pediatric); E66.9 Obesity, unspecified; Z51.81 Encounter for therapeutic drug level monitoring; Z79.84 Long term (current) use of oral hypoglycemic drugs; Z91.128 Patient's intentional underdosing of medication regimen for other reason